=== PATIENT | female | born 1995 | race Caucasian/White ===

== ENCOUNTER 2023-09-03 09:47 | Outpatient (AMB) | payer OTHER, SELFPAY ==
--- NOTE | 2023-09-03 09:50 | A.OFFPC_ITS ---
Vital Signs 09/03/23 09:57 Height 5 ft 4.5 in Weight 140 lb 6 oz BMI 23.7 BP 104/74 Blood Pressure Location Rt brachial Position Sitting Respiration 16 Pulse 87 Pulse Source Pulse Oximeter Temp 97.7 F Temp Source Temporal Artery Scan Pulse Oximetry (%) 96 Oxygen Delivery Method Room Air Intake Visit Reasons: Establish Care Intake Note: patient here for new patient visit. [place] Needle Loom Required: No Is last menstrual period known: Yes Last menstrual period: 08/13/23 Post menopausal: No Patient : No Allergies lexapro Allergy (Intermediate, Uncoded 09/03/23 10:08) Rash Medication List - Last Reconciled 09/03/23 by JANES Lynch No Known Home Meds Tobacco use date assessed: 09/03/23 Dental Screening Dental Screen Date: 09/03/23 Did you have a dental visit in the last 12 months?: No Did you have a dental problem in the last 6 months where you did not have access to dental care?: No Was dental information given to patient?: Patient has dentist HPI HPI Comments History of Present Illness Details 27-year-old female with ANJELICA, MDD 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 Would like to discuss concerns about ADHD. Has never been formally diagnosed. Reports that she has a known history of generalized anxiety disorder as well as major depressive disorder. She is currently active with a counselor. She denies any mental health hospitalizations, SI or HI. Denies substance use or abuse. She reports that she has been on several medications over the years and stopped them all as they have not worked. Some these medications include Strattera and Wellbutrin. Reports has not been on medication since 2019. In regards to labs screening she reports that she is undergoing fertility treatment with her . She will be the egg donor. While her will carry the baby. She had a full set of labs done in July of 2023. She reports that her iron levels were low which is chronic for her. Normal TSH. She was started on iron supplement, multivitamin along with a vitamin-D. Subjective reports today of ADHD include: she has a list that she typed out that was reviewed today on her phone. When asked if these sx are present life long, tells me her parents were not believers in mental health disorders. Adult ADHD Self Report scale completed today Grossly +, all Very often with exception # 6 and #17 which scored sometimes (See scanned document) Has tried Strattera, took one time and states she felt like she was having a heart attack Tried wellbutrin for 4 months and reports no effect like a placebo Exam: Awake alert, pleasant and cooperative MMM RRR LS CTAB Mood and affect appropriate, tearful when talking about ADHD sx Plan: UTox today, negative (except marijuana) start ?dextroamphetamine-amphetamine 5 mg tablet (Adderall) QAM and titrate to effect. 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 1. Little interest or pleasure in doing things: nearly every day 2. Feeling down, depressed, or hopeless: nearly every day 3. Trouble falling or staying asleep, or sleeping too much: nearly every day 4. Feeling tired or having little energy: nearly every day 5. Poor appetite or overeating: nearly every day 6. Feeling bad about yourself - or that you are a failure or have let yourself or your family down: nearly every day 7. Trouble concentrating on things, such as reading the newspaper or watching television: nearly every day 8. Moving or speaking so slowly that other people could have noticed. Or the opposite - being so fidgety or restless that you have been moving around a lot more than usual: nearly every day 9. Thoughts that you would be better off or of hurting yourself in some way: not at all Total score: 24 Depression Screening Interpretation: Positive Depression Screening Follow-up: Existing condition and In treatment Depression Screening Done: Yes 19077 - PHQ-9 Billing: Yes Source: Developed by Drs. Toby Winters, Vicky Fuller, Tristian Bernal and colleagues, with an educational luba from [employer]. Thrive Questionnaire Date Thrive assessed: 09/03/23 I am a: Patient What is your living situation today?: I have a steady place to live Within the past 12 months, did the food you bought not last and you didn't have the money to get more?: Never true Within the past 12 months, did you worry whether your food would run out before you got money to buy more?: Never true Do you have trouble paying for medicines?: No Do you have trouble getting transportation to medical appointments?: No Do you have trouble paying your heating and electricity bill?: No Do you have trouble taking care of your child, family member or friend?: No Do you have trouble with day-to-day activities such as bathing, preparing meals, shopping, managing finances, etc.?: No Are you currently unemployed and looking for a job?: No Are you interested in more education?: Yes Please select the resources that you would like help with: Education Currently or been in a relationship where the following occur: No concerns reported THRIVE Score: 0 AUDIT C Alcohol Use Questionnaire (AUDIT-C) 1. How often do you have a drink containing alcohol?: Monthly or less 2. How many drinks containing alcohol do you have on a typical day when you are drinking?: 1 or 2 3. How often do you have six or more drinks on one occasion?: Never Total Score: 1 Score Reviewed/Action Taken: Yes ANJELICA-7 AMB Questionnaire ANJELICA-7 Date ANJELICA - 7 assessed: 09/03/23 Feeling nervous, anxious, or on edge: 3 = Nearly every day Not being able to stop or control worryin = Nearly every day Worrying too much about different things: 3 = Nearly every day Trouble relaxin = Nearly every day Being so restless that it is hard to sit still: 3 = Nearly every day Becoming easily annoyed or irritable: 3 = Nearly every day Feeling afraid as if something awful might happen: 3 = Nearly every day Total ANJELICA-7 score (0-4 normal; 5-9 mild; 10-14 moderate; 15-21 severe): 21 Source: Developed by Drs. Toby Winters, Vicky Fuller, Tristian Bernal and colleagues, with an educational luba from [employer]. ANJELICA-7 Assessment Billing ANJELICA-7 Assessment Tool: ANJELICA-7 Assessment 99433 Physical exam (Primary Care) Vital Signs: Last Vital Signs Temp 97.7 F 09/03/23 09:57 Pulse 87 09/03/23 09:57 Resp 16 09/03/23 09:57 BP 104/74 09/03/23 09:57 Pulse Ox 96 09/03/23 09:57 Oxygen Delivery Method Room Air 09/03/23 09:57 BMI result Body Mass Index 23.7 Tobacco/Smoking Status: Tobacco use Status Tobacco use date assessed 09/03/23 09/03/23 09:57 Patient Tobacco Use Status Never used Tobacco 09/03/23 09:57 e-Cigarette/Vaping Use Never Used 09/03/23 09:57 PHQ-9: PHQ-9 Score PHQ-9: Total score 09/03/23 10:46 Depression Screening Interpretation: Positive Depression Screening Follow-up: Existing condition and In treatment Thrive Assessment: Date of Thrive Assessment Date Thrive assessed 09/03/23 09/03/23 10:06 Currently or been in a relationship where the following occur: No concerns reported Results Reviewed Results Reviewed: RUN: 09/03/23 1436 PAGE 1 [facility] [address] [place] [id number] Valve Steamer: Dell Maxwell M.D. Specimen Inquiry Name: Falguni Brooks Age/Sex: 27/F : 1995 Unit#: [id number] Attend Dr: Lela Mayer VERIFICATION ENGINEER-BC Re09/03/23 Status: REG REF [facility] Disch: SPEC : [id number] ODILIA: 09/03/23 STATUS: COMP REQ : [id number] RECD: 09/03/[address] [facility] [address]: Lela Mayer VERIFICATION ENGINEER-BC COMP: 09/03/23 ENTERED: 09/03/[address]: ORDERED: Ur Drug Scrn Test Result Flag Reference Opiates, Ur Not Detected Not Detect Opiate cut-off is 300 ng/mL. Positive results are unconfirmed and should not be used for non-medical purposes. Barbiturate, Ur Not Detected Not Detect Barbiturate cut-off is 200 ng/mL. Positive results are unconfirmed and should not be used for non-medical purposes. PCP, Ur Not Detected Not Detect Phencyclidine cut-off is 25 ng/mL. Positive results are unconfirmed and should not be used for non-medical purposes. Amphetamine,Ur Not Detected Not Detect Amphetamine cut-off is 1000 ng/mL. Positive results are unconfirmed and should not be used for non-medical purposes. Benzodiazep,Ur Not Detected Not Detect Benzodiazepine cut-off is 200 ng/mL. Positive results are unconfirmed and should not be used for non-medical purposes. Cocaine, Ur Not Detected Not Detect Cocaine cut-off is 300 ng/mL. Positive results are unconfirmed and should not be used for non-medical purposes. Cannabinoid, Ur POSITIVE H Not Detect Cannabinoid cut-off is 50 ng/mL. Positive results are unconfirmed and should not be used for non-medical purposes. Ur Meth Scrn Not Detected Not Detect ng/mL Methadone cut-off is 300 ng/mL. Positive results are unconfirmed and should not be used for non-medical purposes. Fentanyl, ur Not Detected Not Detect Fentanyl cut-off is 1 ng/mL. Positive results are unconfirmed and should not be used for non-medical purposes. Oxycodone Urine Not Detected Not Detect ng/mL Oxycodone cut-off is 100 ng/mL. Positive results are unconfirmed and should not be used for non-medical purposes. Buprenorph Scr Not Detected Not Detect ng/mL Buprenorphine cut-off is 5 ng/mL. Positive results are unconfirmed and should not be used for non-medical purposes. Assessment and Plan Assessment & Plan (1) Encounter for drug screening: Code(s): Z02.83 - Encounter for blood-alcohol and blood-drug test (2) ADHD: Code(s): F90.9 - Attention-deficit hyperactivity disorder, unspecified type Qualifiers: Attention deficit-hyperactivity disorder type: combined inattentive- hyperactive Qualified Code(s): F90.2 - Attention-deficit hyperactivity disorder, combined type (3) MDD (major depressive disorder), recurrent episode: Comment: in counseling Code(s): F33.9 - Major depressive disorder, recurrent, unspecified Qualifiers: Major depression episode severity: mild Qualified Code(s): F33.0 - Major depressive disorder, recurrent, mild (4) ANJELICA (generalized anxiety disorder): Comment: in counseling Code(s): F41.1 - Generalized anxiety disorder (5) Iron deficiency anemia: Comment: cont Iron supplement Code(s): D50.9 - Iron deficiency anemia, unspecified Qualifiers: Iron deficiency anemia type: chronic blood loss Qualified Code(s): D50.0 - Iron deficiency anemia secondary to blood loss (chronic) Plan This note is constructed using voice recognition software. While every effort has been made to ensure accuracy in partnership development manager, still errors may have been included Sometimes, these errors may affect the content or meaning of the given sentence . Total time spent caring for the patient today was 45 minutes. This includes time spent before the visit reviewing the chart, time spent during the visit, and time spent after the visit on documentation Orders: Orders Drug Screen Urine Today Z02.83 - Encounter for blood-alcohol and blood-drug test Medications: New cholecalciferol (vitamin D3) 50 mcg PO DAILY 90 caps 0RF multivitamin 1 tab PO DAILY 90 tabs 0RF ferrous sulfate 325 mg PO DAILY 90 tabs 0RF bupropion HCl XL (Wellbutrin XL) 150 mg PO QAM 90 tabs 0RF dextroamphetamine-amphetamine 5 mg (Adderall) Partial Fill upon patient request. 5 mg PO DAILY 30 tabs 0RF Patient Instructions: Start wellbutrin 1 tab once per day IN THE AM. Take for 2 weeks then increase to 2 tabs daily until our next followup. UTOX screen complete, will send in RX for Adderal with a goal of controlling ADHD sx, we will titrate to effect Patient is aware they are being prescribed a controlled substance. They were educated that this medication does require routine monthly office visits to monitor weight, blood pressure, heart rate and to screen for any signs of abuse or misuse. They were educated that they may be subject to random pill counts and/or U tox screenings. The prescription drug monitoring program we will be monitored at each visit to further screen for signs of abuse or misuse to include filling prescriptions at other physician's offices. The patient should maintain prescription refills of the same local pharmacy and advised the prov ider of any changes immediately. If at any time there is a concern for abuse or misuse or if there are any signs of side effects such as elevated blood pressure, elevated heart rate or weight loss patient is made aware that this medication will be discontinued. The patient is aware of the above and is willing to proceed. Walk-In Care (Urgent Care): We Make it Easy Walk-in for urgent medical issues such as: ? Seasonal Allergies ? Insect Bites ? Cough ? Diarrhea ? Acute Asthma Attacks ? Back, Knee or Joint Pain ? Ear Infection ? Fever without a Rash ? Headaches ? Nausea ? [place], Rash or Skin Irritation ? Sore Throat ? Sports Physicals ? Vomiting Most insurances are accepted. Patients do not need to be part of the [facility] to seek care at the walk-in clinic. Locations [facility] , [place] [address] ? [phone] [facility] in [place] provides services to ages 18 and over. Open Friday-Friday: 8 a.m. to 5 p.m. and Friday: 9 a.m. to 3 p.m.* *Hours may vary due to staffing availability. To confirm Walk-In Care hours in [place], please call [phone]. [address] [place] [id number] ? [phone] [facility] in [place] provides services to ages 12 and over. Open Friday-Friday: 8 a.m. to 5 p.m. Hours may vary due to staffing availability. To confirm Walk-In Care hours in [place], please call [phone]. LABORATORY SERVICES: [facility] ? Primary Location [address] [place] [address] Friday through Friday 6:00 AM ? 5:00 PM Friday 7:00 AM ? 11:00 AM* [phone] The [facility] is centrally located near the front entrance of the [facility] for easy outpatient access. Convenient parking is provided for outpatients. *Hours may vary due to staffing availability. To confirm Laboratory hours for any location, please call [phone]. Offsite Location For your convenience, we offer offsite laboratory draw stations at the following locations: [address] [place] [address] ? [facility] [address] [facility], [address], [place] Friday through Friday 7:30 AM ? 1:00 PM* [phone] *Hours may vary due to staffing availability. To confirm Laboratory hours for any location, please call [phone]. [place] ? [address] Friday through Friday 6:00 AM ? 3:30 PM* Friday 6:30 AM ? 3 PM* [phone] *Hours may vary due to staffing availability. To confirm Laboratory hours for any location, please call [phone] [place] [address] Friday through Friday 7:30 AM ? 4:00 PM* [phone] *Hours may vary due to staffing availability. To confirm Laboratory hours for any location, please call [phone] [place] [address] Friday through 9:00 AM ? 4:00 PM* *Hours may vary due to staffing availability. To confirm Laboratory hours for any location, please call [phone]. Appointments are not necessary. Walk-ins are welcome. Like all the departments throughout the [facility], our Lab undergoes frequent reviews to ensure the quality and accuracy of test results, and our staff takes special pride in its status as a nationally accredited facility. Patient Portal: ONE PATIENT. ONE RECORD. BETTER CARE. [facility] has a fully integrated, cutting- edge mobile electronic health information system that has revolutionized the way we care for our patients and manage our organization. This system improves communication and coordination enabling us to provide safe, higher-quality care, and an overall positive experience for staff and patients. Our first priority, as always, is to deliver the highest quality care possible. The system is running in the background supporting that priority. This portal is for all [facility] services and practices. If you are experiencing any technical difficulties with enrolling or logging into the Patient Portal please complete the [facility] Patient Portal Technical Support Form. [facility] now offers a new secure on-line interactive tool for patients to review their health information ? Patient Portal. This interactive web portal will enable patients and their families to take an active role in their care by providing easy, secure access to their health information via the internet. The Patient Portal provides patients with instant access to their health information, including laboratory results, medications, allergies, demographic information, visit history, and more. In addition to managing their own care, parents and health care proxies with authorized consent will appreciate the ability to access the records of those individuals for whom they provide care. Please note: if you wish to gain access (Proxy) to another patient?s portal, you will be required to come to the Medical Records Department in person at [facility]. Both the patient giving proxy access and the proxy will need to provide photo identification and complete the appropriate authorization. The Patient Portal also allows track their appointments online. The [facility] Patient Portal also saves patients time by allowing them to submit updates to their demographic and contact information prior to their visits. Portal email notifications will also alert patients to any new activity on their portal, such as test results and new appointments. In order to initially enroll in the [facility] Patient Portal, you will need to enter some required information including the following: ? your [facility] Medical Record number ? your personal home email address ? name ? date of Please note: In order to enroll in the [facility] Patient Portal, we need to have your email address on file in your electronic medical record. The email address needs to be specific for one person (yourself) in order for your Portal enrollment to be successful. You can update your email address in person with our Registration staff when you are registering for a hospital visit. Otherwise, you will need to come to the Health Information Management (Medical Records) Department at [facility]. We are open from Friday ? Friday from 7:30 a.m. ? 4:30 p.m. You will be required to present a photo id. Once you have successfully enrolled in the Patient Portal, you will receive a one-time user id and password for the Portal, sent to your email address. This will allow you to log into the Patient Portal within 99 hrs and reset your own logon id and password, and define personal security questions. Once your permanent login and password have been set, you can log into the [facility] Patient Portal at any time via the blue button above or from the Portal Logon button on any page of the [facility] website. [facility] encourage all of our patients to enroll in Patient Portal as it presents a valuable opportunity for patients and their families to actively participate in their care and stay healthy Welcome to [facility]. We look forward to working with you. Coding Level of Care Code New Pt Level 4 (37053) Complex EM visit Add On G2211 Diagnoses Encounter for drug screening Z02.83 Attention deficit hyperactivity disorder (ADHD), combined type F90.2 Attention deficit-hyperactivity disorder type: combined inattentive- hyperactive Mild episode of recurrent major depressive disorder F33.0 Major depression episode severity: mild ANJELICA (generalized anxiety disorder) F41.1 Iron deficiency anemia due to chronic blood loss D50.0 Iron deficiency anemia type: chronic blood loss Additional Codes ANJELICA-7 Assessment Billing - ANJELICA-7 Assessment Tool: ANJELICA-7 Assessment 94618 ([id number])
[2023-09-03 09:57] VITALS: BP 104/74; PULSE 87; RESP 16; TEMP 36.5; O2SAT 96; BMI 23.7
== END 2023-09-03 10:53 | disposition home or self-care (01) ==
PROVIDERS: PCP Nurse Practitioner Family; Visit Provider Nurse Practitioner Family
DX: D50.0 Iron deficiency anemia secondary to blood loss (chronic) (principal); F90.2 Attention-deficit hyperactivity disorder, combined type; F33.0 Major depressive disorder, recurrent, mild; F41.1 Generalized anxiety disorder
CPT/HCPCS: 99204

== ENCOUNTER 2023-09-03 10:45 | Outpatient (REF) | payer OTHER, SELFPAY ==
[2023-09-03 14:13] LABS: Amphetamine Screen Urine Not Detected (Not Detect); Barbiturates, Urine Not Detected (Not Detect); Benzodiazepines Screen Urine Not Detected (Not Detect); Buprenorphine Scr Not Detected (Not Detect); Cannabinoid Screen Urine POSITIVE (Not Detect); Cocaine Screen Urine Not Detected (Not Detect); Fentanyl, urine Not Detected (Not Detect); Methadone Screen, Urine Not Detected (Not Detect); Opiate Screen Urine Not Detected (Not Detect); Oxycodone Screen Urine Not Detected (Not Detect); Phencyclidine Screen Urine Not Detected (Not Detect)
== END 2023-09-03 10:46 | disposition home or self-care (01) ==
LOC: HO.WFDLDS 10:45
PROVIDERS: Visit Provider Nurse Practitioner Family
DX: Z02.83 Encounter for blood-alcohol and blood-drug test (principal); Z13.9 Encounter for screening, unspecified
CPT/HCPCS: 80307

== ENCOUNTER 2023-09-26 08:26 | Outpatient (AMB) | payer OTHER, SELFPAY ==
--- NOTE | 2023-09-26 08:39 | MHC.PC.OV ---
Vital Signs 09/26/23 08:50 Height 5 ft 4 in Weight 141 lb 2 oz BMI 24.2 BP 114/62 Blood Pressure Location Lt brachial Position Sitting Pulse 88 Pulse Source Auscultation Intake Visit Reasons: 30 min FU ADHD med start Allergies lexapro Allergy (Intermediate, Uncoded 09/26/23 08:51) Rash Medication List - Last Reconciled 09/26/23 by DELANEY Lynch-JEN bupropion HCl XL (Wellbutrin XL) 150 mg PO QAM cholecalciferol (vitamin D3) 50 mcg PO DAILY dextroamphetamine-amphetamine 5 mg (Adderall) 5 mg PO DAILY ferrous sulfate 325 mg PO DAILY multivitamin 1 tab PO DAILY Tobacco use date assessed: 09/03/23 Dental Screening Dental Screen Date: 09/03/23 HPI HPI Comments History of Present Illness Details 27-year-old female with ANJELICA, MDD 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 Was nervous to start Adderral but did start taking it since this time. Does feel lightheaded at times. This only occurs in the evening around 5 or 6 pm. Taking Wellbutrin at 0830 and the Adderral 0930. cont to feel MDD/ANJELICA. No worse. Low energy. 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 Toby Winters, Vicky Fuller, Tristian Bernal and colleagues, with an educational luba from [employer]. Physical exam (Primary Care) Tobacco/Smoking Status: Tobacco use Status Tobacco use date assessed 09/03/23 09/26/23 08:40 Patient Tobacco Use Status Never used Tobacco 09/26/23 08:40 e-Cigarette/Vaping Use Never Used 09/26/23 08:40 Thrive Assessment: Date of Thrive Assessment Date Thrive assessed 09/03/23 09/26/23 08:40 Assessment and Plan Assessment & Plan (1) ADHD: Code(s): F90.9 - Attention-deficit hyperactivity disorder, unspecified type Qualifiers: Attention deficit-hyperactivity disorder type: combined inattentive-hyperactive Qualified Code(s): F90.2 - Attention-deficit hyperactivity disorder, combined type (2) MDD (major depressive disorder), recurrent episode: Comment: in counseling Code(s): F33.9 - Major depressive disorder, recurrent, unspecified Qualifiers: Major depression episode severity: mild Qualified Code(s): F33.0 - Major depressive disorder, recurrent, mild (3) ANJELICA (generalized anxiety disorder): Comment: in counseling Code(s): F41.1 - Generalized anxiety disorder Medications: New desvenlafaxine succinate ER (Pristiq) 25 mg PO DAILY 30 tabs 1RF dextroamphetamine-amphetamine 10 mg (Adderall) Partial Fill upon patient request. 10 mg PO DAILY 30 tabs 0RF Discontinued bupropion HCl XL (Wellbutrin XL) Discontinued Reason: Doctor's Order 150 mg PO QAM 90 tabs 0RF dextroamphetamine-amphetamine 5 mg (Adderall) Partial Fill upon patient request. Discontinued Reason: Doctor's Order 5 mg PO DAILY 30 tabs 0RF Coding Level of Care Code Est Pt Level 4 (27262) Diagnoses Attention deficit hyperactivity disorder (ADHD), combined type F90.2 Attention deficit-hyperactivity disorder type: combined inattentive-hyperactive Mild episode of recurrent major depressive disorder F33.0 Major depression episode severity: mild ANJELICA (generalized anxiety disorder) F41.1
[2023-09-26 08:50] VITALS: BP 114/62; PULSE 88; BMI 24.2
== END 2023-09-26 09:12 | disposition home or self-care (01) ==
PROVIDERS: PCP Nurse Practitioner Family; Visit Provider Nurse Practitioner Family
DX: F90.2 Attention-deficit hyperactivity disorder, combined type (principal); F33.0 Major depressive disorder, recurrent, mild; F41.1 Generalized anxiety disorder
CPT/HCPCS: 99214

== ENCOUNTER 2023-11-14 11:31 | Outpatient (AMB) | payer OTHER, SELFPAY ==
--- NOTE | 2023-11-14 11:38 | A.OFFPC_ITS ---
Vital Signs 11/14/23 11:39 11/14/23 12:04 Height 5 ft 4 in Weight 135 lb BMI 23.2 BP 108/66 Blood Pressure Location Rt brachial Position Sitting Respiration 14 Pulse 111 H 90 Pulse Source Pulse Oximeter Auscultation Pulse Oximetry (%) 99 Oxygen Delivery Method Room Air Intake Visit Reasons: MEDICATION REVIEW Intake Note: follow up on meds Allergies lexapro Allergy (Intermediate, Uncoded 11/14/23 11:47) Rash Medication List - Last Reconciled 11/14/23 by Lela Mayer, [facility] cholecalciferol (vitamin D3) 50 mcg PO DAILY desogestrel-ethinyl estradiol 0.15-0.03 mg (Isibloom) 1 tab PO DAILY desvenlafaxine succinate ER (Pristiq) 25 mg PO DAILY dextroamphetamine-amphetamine 10 mg (Adderall) 10 mg PO DAILY ferrous sulfate 325 mg PO DAILY multivitamin 1 tab PO DAILY Tobacco use date assessed: 09/03/23 Dental Screening Dental Screen Date: 09/03/23 HPI HPI Comments History of Present Illness Details 28-year-old female with ANJELICA, MDD, ADHD 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 ADHD sx are a little bit controlled now on the 10mg Adderall. The improvement was short lived. Food noise has decreased. She admits to being a chronic snacker before. Otherwise does not really help her day to day. ANJELICA/MDD: Has been taking the Pristiq for about 3 weeks now. No side effects other than having 2 days of feeling crappy but really unsure if it was from this or not. NOw taking w/ food as she was not prior. Takes a little later in the morning. Started OCP for fertility reasons for retrieval in the next 3 weeks or so. Will be on injectable medications for about 2 weeks during this time. Then will be off of these. Anxiety is not worse. Very slight improvement. Cont in therapy. Has been doing life style mods with exercise and better diet. Checks wt at home, reports [id number] Exam: Awake alert, pleasant and cooperative MMM RRR LS CTAB Mood and affect appropriate Plan: Cont pristiq same dose Increase Adderall to 20 in the AM. New RX sent today. Use 10mg PRN in the afternoon, before 6pm. You have #23 . Use these to supplement in the afternoon... a new RX was not sent. Make sure you have 4 hours in between AM and PM dose. And it is ok to use 5mg if the 10mg is too much. Continue to practice healthy lifestyle choices. Continue care with counselor. Return to office in 3-4 weeks for routine follow up, sooner as needed This note is constructed using voice recognition software. While every effort has been made to ensure accuracy in workcell operator, still errors may have been included Sometimes, these errors may affect the content or meaning of the given sentence . Total time spent caring for the patient today was 30 minutes. 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 How many drinks containing alcohol do you have on a typical day when you are drinking?: 1 or 2 3. How often do you have six or more drinks on one occasion?: Never Total Score: 0 ANJELICA-7 AMB Questionnaire ANJELICA-7 Date ANJELICA - 7 assessed: 09/03/23 Source: Developed by Drs. Toby Winters, Vicky Fuller, Tristian Bernal and colleagues, with an educational luba from [employer]. Physical exam (Primary Care) Vital Signs: Last Vital Signs Pulse 90 11/14/23 12:04 Resp 14 11/14/23 11:39 BP 108/66 11/14/23 11:39 Pulse Ox 99 11/14/23 11:39 Oxygen Delivery Method Room Air 11/14/23 11:39 BMI result Body Mass Index 23.2 Tobacco/Smoking Status: Tobacco use Status Tobacco use date assessed 09/03/23 11/14/23 11:41 Patient Tobacco Use Status Never used Tobacco 11/14/23 11:41 e-Cigarette/Vaping Use Never Used 11/14/23 11:41 Thrive Assessment: Date of Thrive Assessment Date Thrive assessed 09/03/23 11/14/23 11:41 Assessment and Plan Assessment & Plan (1) ANJELICA (generalized anxiety disorder): Comment: in counseling Code(s): F41.1 - Generalized anxiety disorder (2) MDD (major depressive disorder), recurrent episode: Comment: in counseling Code(s): F33.9 - Major depressive disorder, recurrent, unspecified Qualifiers: Major depression episode severity: mild Qualified Code(s): F33.0 - Major depressive disorder, recurrent, mild (3) ADHD: Code(s): F90.9 - Attention-deficit hyperactivity disorder, unspecified type Qualifiers: Attention deficit-hyperactivity disorder type: combined inattentive- hyperactive Qualified Code(s): F90.2 - Attention-deficit hyperactivity disorder, combined type Medications: New dextroamphetamine-amphetamine 20 mg (Adderall) Partial Fill upon patient request. 20 mg PO DAILY 30 tabs 0RF Patient Instructions: Plan: Cont pristiq same dose Increase Adderall to 20 in the AM. New RX sent today. Use 10mg PRN in the afternoon, before 6pm. You have #23 [pill count done today]. Use these to supplement in the afternoon... a new RX was not sent. Make sure you have 4 hours in between AM and PM dose. And it is ok to use 5mg if the 10mg is too much. Coding Level of Care Code Est Pt Level 4 (56180) Complex EM visit Add On G2211 Diagnoses ANJELICA (generalized anxiety disorder) F41.1 Mild episode of recurrent major depressive disorder F33.0 Major depression episode severity: mild Attention deficit hyperactivity disorder (ADHD), combined type F90.2 Attention deficit-hyperactivity disorder type: combined inattentive- hyperactive
[2023-11-14 11:39] VITALS: BP 108/66; PULSE 111; RESP 14; O2SAT 99; BMI 23.2
[2023-11-14 12:04] VITALS: PULSE 90
== END 2023-11-14 12:07 | disposition home or self-care (01) ==
PROVIDERS: PCP Nurse Practitioner Family; Visit Provider Nurse Practitioner Family
DX: F41.1 Generalized anxiety disorder (principal); F33.0 Major depressive disorder, recurrent, mild; F90.2 Attention-deficit hyperactivity disorder, combined type

== ENCOUNTER → 2023-11-14 11:31 | Outpatient (BNVA) | payer OTHER, SELFPAY | PROVIDERS: PCP Nurse Practitioner Family; Visit Provider Nurse Practitioner Family | DX: F41.1 Generalized anxiety disorder (principal); F33.0 Major depressive disorder, recurrent, mild; F90.2 Attention-deficit hyperactivity disorder, combined type; Z79.899 Other long term (current) drug therapy ==

== ENCOUNTER 2023-12-11 09:01 | Outpatient (AMB) | payer OTHER, SELFPAY ==
--- NOTE | 2023-12-11 09:03 | MHC.PC.OV ---
Vital Signs 12/11/23 09:06 Height 5 ft 4 in Weight 137 lb 2 oz BMI 23.5 BP 118/70 Blood Pressure Location Lt brachial Position Sitting Respiration 13 Pulse 88 Pulse Source Pulse Oximeter Temp 97.9 F Temp Source Oral Pulse Oximetry (%) 98 Intake Visit Reasons: F/U Intake Note: follow up and last pap was done last year at [facility]. 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 New RX sent today. Use 10mg PRN in the afternoon, before 6pm. You have #23 . Use these to supplement in the afternoon... a new RX was not sent. Make sure you have 4 hours in between AM and PM dose. And it is ok to use 5mg if the 10mg is too much. Continue to practice healthy lifestyle choices. Continue care with counselor. Today: Had egg retrieval on Friday. Number of follicles low given OCP use. Waiting to hear if they survived the 5 days for the next steps. Feeling overwhelmed w/ all of the injections, labs and US. This was first surgery,first anesthesia. Has to drive to [place] [employer] [place], working lots. Told ok to cont meds w/o stopping. Encouraged to use ^ folic acid. however, she stopped taking the Adderall 1 week after starting injection 11/26/23. Did take a very few times to help w/ work. Stopped taking pristiq around the same time. She self tapered. States she stopped feeling like she caused the lower follicle count. Her anxiety is now worse. When she did take the 20mg Adderall (2 x10mg) versus take the 20 mg tab didn't feel the same as taking the 2 10's When asked how it felt different felt it more increased focus, productivity. Did try additional PM dose of 5mg one time around 3pm. Did not feel much. Cont in counselor and now working w/ life [employer]. Wt is stable. On top of this, selling house and moving to [place]. New house will need construction. Feels sore s/p surgery Taking APAP w little relief. Also came down w/ a URI last week. Finally feeling better from that. Exam: Awake alert, pleasant and cooperative MMM RRR LS CTAB anxious, appropriate Pill count today #20 20mg, #10 10mg Plan: URI supportive care. Lots of time was spent today talking about self-care and need to control her anxiety. Strongly regards to stay on her medication as prescribed. Restart pristiq same dose, take every day. Restart taking Adderall to 20 in the AM. Use 10mg PRN in the afternoon, before 6pm. No new RX sent. Can consider 2x10mg in the AM if this is better than the 20mg tab just let me know. Make sure you have 4 hours in between AM and PM dose. And it is ok to use 5mg if the 10mg is too much. Continue to practice healthy lifestyle choices. Continue care with counselor. Return to office in 3-4 weeks for routine follow up, sooner as needed Patient is aware they are being prescribed a controlled substance. They were educated that this medication does require routine monthly office visits to monitor weight, blood pressure, heart rate and to screen for any signs of abuse or misuse. They were educated that they may be subject to random pill counts and/or U tox screenings. The prescription drug monitoring program we will be monitored at each visit to further screen for signs of abuse or misuse to include filling prescriptions at other physician's offices. The patient should maintain prescription refills of the same local pharmacy and advised the provider of any changes immediately. If at any time there is a concern for abuse or misuse or if there are any signs of side effects such as elevated blood pressure, elevated heart rate or weight loss patient is made aware that this medication will be discontinued. The patient is aware of the above and is willing to proceed. This note is constructed using voice recognition software. While every effort has been made to ensure accuracy in hand knitter, still errors may have been included Sometimes, these errors may affect the content or meaning of the given sentence . Total time spent caring for the patient today was 45 minutes. 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 1. Little interest or pleasure in doing things: more than half the days 2. Feeling down, depressed, or hopeless: several days 3. Trouble falling or staying asleep, or sleeping too much: several days 4. Feeling tired or having little energy: more than half the days 5. Poor appetite or overeating: more than half the days 6. Feeling bad about yourself - or that you are a failure or have let yourself or your family down: more than half the days 7. Trouble concentrating on things, such as reading the newspaper or watching television: nearly every day 8. Moving or speaking so slowly that other people could have noticed. Or the opposite - being so fidgety or restless that you have been moving around a lot more than usual: more than half the days 9. Thoughts that you would be better off or of hurting yourself in some way: not at all Total score: 15 [id number] - PHQ-9 Billing: Yes Source: Developed by Drs. Toby Winters, Vicky Fuller, Tristian Bernal and colleagues, with an educational luba from [employer]. Thrive Questionnaire Date Thrive assessed: 12/11/23 I am a: Patient What is your living situation today?: I have a steady place to live Within the past 12 months, did the food you bought not last and you didn't have the money to get more?: Never true Within the past 12 months, did you worry whether your food would run out before you got money to buy more?: Never true Do you have trouble paying for medicines?: No Do you have trouble getting transportation to medical appointments?: No Do you have trouble paying your heating and electricity bill?: No Do you have trouble taking care of your child, family member or friend?: No Do you have trouble with day-to-day activities such as bathing, preparing meals, shopping, managing finances, etc.?: No Are you currently unemployed and looking for a job?: No Are you interested in more education?: Yes Please select the resources that you would like help with: None Currently or been in a relationship where the following occur: No concerns reported THRIVE Score: 0 AUDIT C Alcohol Use Questionnaire (AUDIT-C) 1. How often do you have a drink containing alcohol?: 2-4 times a month Total Score: 2 ANJELICA-7 AMB Questionnaire ANJELICA-7 Date ANJELICA - 7 assessed: 12/11/23 Feeling nervous, anxious, or on edge: 3 = Nearly every day Not being able to stop or control worryin = Nearly every day Worrying too much about different things: 3 = Nearly every day Trouble relaxin = Nearly every day Being so restless that it is hard to sit still: 3 = Nearly every day Becoming easily annoyed or irritable: 3 = Nearly every day Feeling afraid as if something awful might happen: 3 = Nearly every day Total ANJELICA-7 score (0-4 normal; 5-9 mild; 10-14 moderate; 15-21 severe): 21 Source: Developed by Drs. Toby Winters, Vicky Fuller, Tristian Bernal and colleagues, with an educational luba from [employer]. ANJELICA-7 Assessment Billing ANJELICA-7 Assessment Tool: ANJELICA-7 Assessment [id number] Physical exam (Primary Care) Vital Signs: Last Vital Signs Temp 97.9 F 12/11/23 09:06 Pulse 88 12/11/23 09:06 Resp 13 12/11/23 09:06 BP 118/70 12/11/23 09:06 Pulse Ox 98 12/11/23 09:06 BMI result Body Mass Index 23.5 Tobacco/Smoking Status: Tobacco use Status Tobacco use date assessed 09/03/23 12/11/23 09:04 Patient Tobacco Use Status Never used Tobacco 12/11/23 09:04 e-Cigarette/Vaping Use Never Used 12/11/23 09:04 PHQ-9: PHQ-9 Score PHQ-9: Total score 15 12/11/23 09:18 Thrive Assessment: Date of Thrive Assessment Date Thrive assessed 12/11/23 12/11/23 09:09 Currently or been in a relationship where the following occur: No concerns reported Coding Level of Care Code Est Pt Level 5 (07919) Complex EM visit Add On G2211 Diagnoses ANJELICA (generalized anxiety disorder) F41.1 Mild episode of recurrent major depressive disorder F33.0 Major depression episode severity: mild Attention deficit hyperactivity disorder (ADHD), combined type F90.2 Attention deficit-hyperactivity disorder type: combined inattentive-hyperactive Viral URI J06.9 Additional Codes ANJELICA-7 Assessment Billing - ANJELICA-7 Assessment Tool: ANJELICA-7 Assessment [id number] ([id number]) Assessment & Plan Assessment & Plan (1) ANJELICA (generalized anxiety disorder): Comment: in counseling Code(s): F41.1 - Generalized anxiety disorder Category: Medical Plan: . (2) MDD (major depressive disorder), recurrent episode: Comment: in counseling Code(s): F33.9 - Major depressive disorder, recurrent, unspecified Category: Medical Qualifiers: Major depression episode severity: mild Qualified Code(s): F33.0 - Major depressive disorder, recurrent, mild Plan: . (3) ADHD: Code(s): F90.9 - Attention-deficit hyperactivity disorder, unspecified type Category: Medical Qualifiers: Attention deficit-hyperactivity disorder type: combined inattentive-hyperactive Qualified Code(s): F90.2 - Attention-deficit hyperactivity disorder, combined type (4) Viral URI: Code(s): J06.9 - Acute upper respiratory infection, unspecified Plan: supportive care only Plan .
[2023-12-11 09:06] VITALS: BP 118/70; PULSE 88; RESP 13; TEMP 36.6; O2SAT 98; BMI 23.5
== END 2023-12-11 09:46 | disposition home or self-care (01) ==
PROVIDERS: PCP Nurse Practitioner Family; Visit Provider Nurse Practitioner Family
DX: F41.1 Generalized anxiety disorder (principal); F33.0 Major depressive disorder, recurrent, mild; F90.2 Attention-deficit hyperactivity disorder, combined type; J06.9 Acute upper respiratory infection, unspecified

== ENCOUNTER → 2023-12-11 09:01 | Outpatient (BNVA) | payer OTHER, SELFPAY | PROVIDERS: PCP Nurse Practitioner Family; Visit Provider Nurse Practitioner Family | DX: F41.1 Generalized anxiety disorder (principal); F33.0 Major depressive disorder, recurrent, mild; F90.2 Attention-deficit hyperactivity disorder, combined type; J06.9 Acute upper respiratory infection, unspecified | CPT/HCPCS: 96127 ==

== ENCOUNTER 2024-01-09 10:55 | Outpatient (AMB) | payer OTHER, SELFPAY ==
--- NOTE | 2024-01-09 10:59 | A.OFFPC_ITS ---
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 Intake Note: patient here for new patient visit Product Ambassador Required: No Is last menstrual period known: Yes Last menstrual period: 12/13/23 Post menopausal: No Patient : No Allergies lexapro Allergy (Intermediate, Uncoded 01/09/24 11:26) Rash Medication List - Last Reconciled 01/09/24 by Lela Mayer, 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- desvenlafaxine succinate ER (Pristiq) 25 mg PO DAILY dextroamphetamine-amphetamine 20 mg (Adderall) 20 mg PO DAILY multivitamin 1 tab PO DAILY Tobacco use date assessed: 01/09/24 Dental Screening Dental Screen Date: 01/09/24 Did you have a dental visit in the last 12 months?: No Did you have a dental problem in the last 6 months where you did not have access to dental care?: No Was dental information given to patient?: Patient has dentist HPI HPI Comments History of Present Illness Details 28-year-old female with ANJELICA, MDD, ADHD, keratosis pilaris, facial acne Social: 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 Moving to [place]. Family hx: Maternal Grandmother substance abuse, ovarian ca, stomach ca - ; Dad coliits; Mom alive well. Full and half sisters, both alive and well 22 and 9 Health Maintenance: PAP 07/02/22 Normal Tdap 2006, would like to get this at a later date Flu declined Specialists: Counselor STAFF DEVELOPER Derm - [facility] Here today for CPE Overall well. Has 3 F and 2 M eggs, may do first transfer in Jan, unsure if this will happen on time. Optho wears glasses, last eye exam Summer 2023 Skin saw derm a few weeks ago, has f/u appts scheduled. Deferred screening labs as had lots of bloodwork done recently w/ the fertility treatments. Saw ENT in the past, since 2012 had globus sensation, it comes and goes, did have a nasolaryngoscopy x 2, last at [facility]. Told she had acid reflux. Went to ED x 1 for this. She has never tried guard treatment. Plan Start Omeprazole 40mg daily, for 6 week, journal daily 1-10 scale about globus sensation and we can f/u. Consider referrals if needed after PPI trial Continue all medications as directed. Continue care with her care team. She does need a refill on her Adderall. She was prescribed 20 mg in the morning and 5-10 mg as needed for breakthrough symptoms. She did not like the way the 20 mg tablet made her feel. Therefore she was taking 210 mg in the morning and then 5-10 mg as needed for breakthrough symptoms. She has been consistent in her follow-ups, pill counts, etc.. I have sent in a new prescription today for Adderall 10 mg take 2 tablets in the morning and 1 tablet as needed for breakthrough symptoms, not to exceed 30 mg a day. She has a routine follow up for her ADHD next week. An additional 20 minutes was spent addressing the problem(s) noted at todays visit. This includes time spent before the visit reviewing the chart, time spent during the visit, and time spent after the visit on documentation [facility] Medical History (Updated 01/09/24 @ 15:49 by Lela Mayer [facility]) Depression Anxiety Family History (Updated 01/09/24 @ 11:17 by Debo Herbert) Maternal Grandmother Substance abuse Paternal Grandfather High blood pressure Social History (Updated 01/09/24 @ 11:14 by Debo Herbert) Housing: House Patient Tobacco Use Status: Never used Tobacco e-Cigarette/Vaping Use: Never Used Second Hand Smoke Exposure: No Substance Use Type: Marijuana Patient : No service: No Current occupational status: employed 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 1. Little interest or pleasure in doing things: several days 2. Feeling down, depressed, or hopeless: several days 3. Trouble falling or staying asleep, or sleeping too much: more than half the days 4. Feeling tired or having little energy: more than half the days 5. Poor appetite or overeating: not at all 6. Feeling bad about yourself - or that you are a failure or have let yourself or your family down: several days 7. Trouble concentrating on things, such as reading the newspaper or watching television: several days 8. Moving or speaking so slowly that other people could have noticed. Or the opposite - being so fidgety or restless that you have been moving around a lot more than usual: not at all 9. Thoughts that you would be better off or of hurting yourself in some way: not at all Total score: 8 Depression Screening Interpretation: Positive Depression Screening Follow-up: Existing condition Depression Screening Done: Yes 87820 - PHQ-9 Billing: Yes Source: Developed by Drs. Toby Winters, Vicky Fuller, Tristian Bernal and colleagues, with an educational luba from [employer]. Thrive Questionnaire Date Thrive assessed: 01/09/24 I am a: Patient What is your living situation today?: I have a steady place to live Within the past 12 months, did the food you bought not last and you didn't have the money to get more?: Never true Within the past 12 months, did you worry whether your food would run out before you got money to buy more?: Never true Do you have trouble paying for medicines?: No Do you have trouble getting transportation to medical appointments?: No Do you have trouble paying your heating and electricity bill?: No Do you have trouble taking care of your child, family member or friend?: No Do you have trouble with day-to-day activities such as bathing, preparing meals, shopping, managing finances, etc.?: No Are you currently unemployed and looking for a job?: No Are you interested in more education?: Yes Please select the resources that you would like help with: None Currently or been in a relationship where the following occur: No concerns reported THRIVE Score: 0 AUDIT C Alcohol Use Questionnaire (AUDIT-C) 1. How often do you have a drink containing alcohol?: 2-4 times a month 2. How many drinks containing alcohol do you have on a typical day when you are drinking?: 1 or 2 3. How often do you have six or more drinks on one occasion?: Never Total Score: 2 Score Reviewed/Action Taken: Yes ANJELICA-7 AMB Questionnaire ANJELICA-7 Date ANJELICA - 7 assessed: 01/09/24 Feeling nervous, anxious, or on edge: 1 = Several days Not being able to stop or control worryin = More than half the days Worrying too much about different things: 2 = More than half the days Trouble relaxin = Several days Being so restless that it is hard to sit still: 1 = Several days Becoming easily annoyed or irritable: 2 = More than half the days Feeling afraid as if something awful might happen: 2 = More than half the days Total ANJELICA-7 score (0-4 normal; 5-9 mild; 10-14 moderate; 15-21 severe): 11 Source: Developed by Drs. Toby Winters, Vicky Fuller, Tristian Bernal and colleagues, with an educational luba from [employer]. ANJELICA-7 Assessment Billing ANJELICA-7 Assessment Tool: ANJELICA-7 Assessment 18954 Review of Systems Const Details: Constitutional: Denies fever. Skin: Denies rash. Eye: Denies eye pain. ENMT: Denies sore throat and nasal congestion. Respiratory: Denies shortness of breath and cough. Gastrointestinal: Denies nausea, vomiting or abdominal pain. Cardiovascular: Denies chest pain and syncope. Genitourinary: Denies dysuria. Musculoskeletal: Denies back pain and extremity pain. Neurologic: Denies headaches, confusion, and weakness. Psychiatric: Denies suicidal thoughts and substance abuse. Allergy/ Immunologic: Denies impaired immunity. Physical exam (Primary Care) Vital Signs: Last Vital Signs Temp 99.1 F 01/09/24 11:06 Pulse 124 H 01/09/24 11:06 Resp 16 01/09/24 11:06 BP 110/70 01/09/24 11:06 Pulse Ox 98 01/09/24 11:06 Oxygen Delivery Method Room Air 01/09/24 11:06 BMI result Body Mass Index 23.2 Tobacco/Smoking Status: Tobacco use Status Tobacco use date assessed 01/09/24 01/09/24 11:13 Patient Tobacco Use Status Never used Tobacco 01/09/24 11:14 e-Cigarette/Vaping Use Never Used 01/09/24 11:14 PHQ-9: PHQ-9 Score PHQ-9: Total score 8 01/09/24 11:36 Depression Screening Interpretation: Positive Depression Screening Follow-up: Existing condition Thrive Assessment: Date of Thrive Assessment Date Thrive assessed 01/09/24 01/09/24 11:13 Currently or been in a relationship where the following occur: No concerns reported Const Other: General: Well developed, well nourished, in no acute distress. Appears stated age. Head: Normocephalic, atraumatic. Eyes: Pupils are equal, round and reactive to light and accommodation. Conjunctivae are clear. Vision grossly normal. Ears: TMs clear AU, EACS WNL Nose: Patent, without discharge. Mouth: There are no ulcers or lesions noted. No inflammation, no post nasal drip, no plaques nor exudates. Neck: Supple, no adenopathy or thyromegaly. Lungs: Clear to auscultation bilaterally. No rales, rhonchi or wheeze noted. Good air flow in all seay. Heart: Regular rate and rhythm. No murmurs, click, rubs or gallops are noted. Abdomen: Bowel sounds present in all quadrants. The abdomen is soft, nontender, with no masses or organomegaly noted. No hernias are noted. Musculoskeletal: Joints are nontender, without swelling, redness, or effusions. Range of motion is observed to be normal. Pulses: Peripheral pulses are equal and palpable bilaterally. Extremities: No clubbing, cyanosis nor edema is noted. Neurologic: Gait and station normal. Cranial Nerves 2-12 intact. Motor strength grossly symmetrical and intact. No sensory loss. Balance normal. Skin: No rashes, ulcers, or lesions noted. Turgor is good. Skin color is good. Hair and nails are without abnormalities. Psych: Normal eye contact, affect and mood appropriate, and normal interactions. Patient is alert and appropriate to context. Coding Level of Care Code Est Pt Level 3 (18169) Est Pt Prev Care 18-39y(31064) Diagnoses Encounter for general adult medical examination with abnormal findings Z00.01 Attention deficit hyperactivity disorder (ADHD), combined type F90.2 Attention deficit-hyperactivity disorder type: combined inattentive- hyperactive Globus sensation R09.A2 Need for Tdap vaccination Z23 Additional Codes ANJELICA-7 Assessment Billing - ANJELICA-7 Assessment Tool: ANJELICA-7 Assessment 17479 ([id number]) PHQ-9 - 36503 - PHQ-9 Billing: Yes ([id number]) Assessment & Plan Assessment & Plan (1) Encounter for general adult medical examination with abnormal findings: Code(s): Z00.01 - Encounter for general adult medical examination with abnormal findings Plan: . (2) ADHD: Code(s): F90.9 - Attention-deficit hyperactivity disorder, unspecified type Category: Medical Qualifiers: Attention deficit-hyperactivity disorder type: combined inattentive- hyperactive Qualified Code(s): F90.2 - Attention-deficit hyperactivity disorder, combined type Plan: . (3) Globus sensation: Code(s): R09.A2 - Foreign body sensation, throat Category: Medical Plan: . (4) Need for Tdap vaccination: Code(s): Z23 - Encounter for immunization Category: Medical Plan: . Medications: New omeprazole 40 mg PO DAILY 30 caps 1RF dextroamphetamine-amphetamine 10 mg (Adderall) Take 2 tabs in the morning (20mg) take additional 10 mg in the afternoon as needed for breakthrough sx; Max 30mg/day. 10 mg PO DIRECTED 90 tabs 0RF Discontinued dextroamphetamine-amphetamine 20 mg (Adderall) Partial Fill upon patient request. Discontinued Reason: Doctor's Order 20 mg PO DAILY 30 tabs 0RF Patient Instructions: Health screenings for women You should visit your health care provider from time to time, even if you are healthy. The purpose of these visits is to: Screen for medical issues Assess your risk for future medical problems Encourage a healthy lifestyle Update vaccinations and other preventive care services Help you get to know your provider in case of an illness Information Even if you feel fine, you should still see your provider for regular checkups. These visits can help you avoid problems in the future. For example, the only way to find out if you have high blood pressure is to have it checked regularly. High blood sugar and high cholesterol levels also may not have any symptoms in the early stages. A simple blood test can check for these conditions. There are specific times when you should see your provider or receive specific health screenings. The [place] Preventive Services Task Force publishes a list of recommended screenings. Below are screening guidelines for women ages 18 to 39. BLOOD PRESSURE SCREENING Your blood pressure should be checked at least once every 3 to 5 years if: Your blood pressure is in the normal range (top number less than 120 mm Hg and bottom number less than 80 mm Hg) You don't have risk factors for high blood pressure Ask your provider if you need your blood pressure checked more often if: The top number is 120 to 129 mm Hg or the bottom number is 70 to 79 mm Hg You have diabetes, heart disease, kidney problems, are overweight, or have certain other health conditions You have a first-degree relative with high blood pressure You are Black You had high blood pressure during a If the top number is 130 mm Hg or greater or the bottom number is 80 mm Hg or greater, this is considered stage 1 hypertension. Schedule an appointment with your provider to learn how you can reduce your blood pressure. Watch for blood pressure screenings in your area. Ask your provider if you can stop in to have your blood pressure checked. BREAST CANCER SCREENING Experts do not agree about the benefits of breast self-exams in finding breast cancer or saving lives. Talk to your provider about what is best for you. A screening mammogram is not recommended for most women under age 40. Your provider may discuss and recommend mammograms, MRI scans, or ultrasounds if you have an increased risk for breast cancer, such as: A mother or sister who had breast cancer at a young age (most often starting screening earlier than the age the close relative was diagnosed) You carry a high-risk genetic marker CERVICAL CANCER SCREENING Cervical cancer screening should start at age 21 years unless your provider advises otherwise. After the first test: Women ages 21 through 29 should have a Pap test every 3 years. Exoprts do not agree on whether HPV testing is recommended for this age group. Women ages 30 through 65 should be screened with either a Pap test every 3 years or the HPV test every 5 years or both tests every 5 years (called cotesting ). Women who have been treated for precancer (cervical dysplasia) should continue to have Pap tests for 20 years after treatment or until age 65, whichever is longer. If you have had your uterus and cervix removed (total hysterectomy), and you have not been diagnosed with cervical cancer or precancer (high grade cervical neoplasia), you do not need cervical cancer screening. CHOLESTEROL SCREENING Cholesterol screening should begin at: Age 45 for women with no known risk factors for coronary heart disease Age 20 for women with known risk factors for coronary heart disease Repeat cholesterol screening should take place: Every 5 years for women with normal cholesterol levels More often if changes occur in lifestyle (including weight gain and diet) More often if you have diabetes, heart disease, kidney problems, or certain other conditions DIABETES SCREENING You should be screened for diabetes starting at age 35 and then repeated every 3 years if you have no risk factors for diabetes. Screening may need to start earlier and be repeated more often if you have other risk factors for diabetes, such as: You have a first degree relative with diabetes. You are overweight or have obesity. You have high blood pressure, prediabetes, or a history of heart disease. Screening for diabetes should be done if you are planning to become and you are overweight and have other risk factors such as high blood pressure. DENTAL EXAM Go to the dentist once or twice every year for an exam and cleaning. Your dentist will evaluate if you need more frequent visits. EYE EXAM Have an eye exam every 5 to 10 years before age 40. If you have vision problems, have an eye exam every 2 years or more often if recommended by your provider. You should have an eye exam that includes an examination of your retina (back of your eye) at least every year if you have diabetes. IMMUNIZATIONS Commonly needed vaccines include: Flu shot: get one every year. COVID-19 vaccine: ask your provider what is best for you. Tetanus-diphtheria and acellular pertussis (Tdap) vaccine: have one at or after age 19 as one of your tetanus-diphtheria vaccines if you did not receive it as an adolescent. Tetanus-diphtheria: have a booster (or Tdap) every 10 years. Varicella vaccine: receive 2 doses if you never had chickenpox or the varicella vaccine. Hepatitis B vaccine: receive 2, 3, or 4 doses, depending on your exact circumstances. Measles, mumps, and rubella (MMR) vaccine: receive 1 to 2 doses if you are not already immune to MMR. Your provider can tell you if you are immune. Ask your provider about the human papillomavirus (HPV) vaccine if: You have not received the HPV vaccine in the past You have not completed the full vaccine series (you should catch up on this shot) Ask your provider if you should receive other immunizations if you have certain health problems that increase your risk for some diseases such as pneumonia. INFECTIOUS DISEASE SCREENING Women who are sexually active should be screened for chlamydia and gonorrhea up until age 25. Women 25 years and older should be screened for chlamydia and gonorrhea if at high risk. Screening for hepatitis C: All adults ages 18 to 79 should get a one-time test for hepatitis C. people should be screened at every . Screening for human immunodeficiency virus (HIV): All people ages 15 to 65 should get a one-time test for HIV. Depending on your lifestyle and medical history, you may also need to be screened for infections such as syphilis and HIV, as well as other infections. PHYSICAL EXAM All adults should visit their provider from time to time, even if they are healthy. The purpose of these visits is to: Screen for disease Assess your risk of future medical problems Encourage a healthy lifestyle Update your vaccinations and other preventive care services Maintain a relationship with a provider in case of an illness Your height, weight, and BMI should be checked at every exam. During your exam, your provider may ask you about: Depression and anxiety Diet and exercise Alcohol and tobacco use Safety issues, such as using seat belts, smoke detectors, and intimate partner violence Your medicines and risk for interactions SKIN SELF-EXAM Your provider may check your skin for signs of skin cancer, especially if you're at high risk, such as if you: Have had skin cancer before Have close relatives with skin cancer Have a weakened immune system OTHER SCREENING Talk with your provider about colon cancer screening if you have a strong family history of colon cancer or polyps, or if you have had inflammatory bowel disease or polyps yourself. Routine bone density screening of women under 40 is not recommended.
[2024-01-09 11:06] VITALS: BP 110/70; PULSE 124; RESP 16; TEMP 37.3; O2SAT 98; BMI 23.2
[2024-01-09 15:46] VITALS: PULSE 90
== END 2024-01-09 11:49 | disposition home or self-care (01) ==
PROVIDERS: PCP Nurse Practitioner Family; Visit Provider Nurse Practitioner Family
DX: Z00.00 Encounter for general adult medical examination without abnormal findings (principal); F90.2 Attention-deficit hyperactivity disorder, combined type; R09.A2 Foreign body sensation, throat

== ENCOUNTER → 2024-01-09 10:55 | Outpatient (BNVA) | payer OTHER, SELFPAY | PROVIDERS: PCP Nurse Practitioner Family; Visit Provider Nurse Practitioner Family | DX: Z00.01 Encounter for general adult medical examination with abnormal findings (principal); F90.2 Attention-deficit hyperactivity disorder, combined type; R09.A2 Foreign body sensation, throat | CPT/HCPCS: 96127 ==

== ENCOUNTER 2024-01-14 08:26 | Outpatient (AMB) | payer OTHER, SELFPAY ==
--- NOTE | 2024-01-14 08:31 | MHC.PC.OV ---
Vital Signs 01/14/24 08:52 Height 5 ft 4 in Weight 134 lb 4 oz BMI 23.0 BP 90/55 L Blood Pressure Location Rt brachial Position Sitting Respiration 16 Pulse 84 Pulse Source Pulse Oximeter Temp 97.9 F Temp Source Temporal Artery Scan Pulse Oximetry (%) 99 Oxygen Delivery Method Room Air Intake Visit Reasons: 4 weeks 30 min routine ADHD ANJELICA fu Intake Note: patient here for follow up on ADHD and ANJELICA. 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 Is last menstrual period known: Yes Last menstrual period: 12/13/23 Post menopausal: No Patient : No Allergies lexapro Allergy (Intermediate, Uncoded 01/14/24 09:03) Rash Medication List - Last Reconciled 01/14/24 by Lela Mayer, [employer] desvenlafaxine succinate ER (Pristiq) 25 mg PO DAILY dextroamphetamine-amphetamine 10 mg (Adderall) 10 mg PO DIRECTED multivitamin 1 tab PO DAILY omeprazole 40 mg PO DAILY Tobacco use date assessed: 01/14/24 Dental Screening Dental Screen Date: 01/14/24 Did you have a dental visit in the last 12 months?: No Did you have a dental problem in the last 6 months where you did not have access to dental care?: No Was dental information given to patient?: Patient has dentist HPI HPI Comments History of Present Illness Details History of Present Illness The patient is a 28-year-old female presenting with a follow-up for ADHD and anxiety. The patient has been on Adderall treatment, originally prescribed 20 mg tablets, but expressed that this was less effective than taking two 10 mg tablets. The patient has experimented with a 10 mg dose for breakthrough symptoms in the afternoon and finds the experience similar to the 20 mg dose, acknowledging that initial differences noticed were likely psychological due to dose changes. Additionally, the patient has refrained from using a 10 mg midday dose because of fears regarding its impact on her sleep, as she generally experiences difficulty falling asleep. Currently, she is considering adjusting her schedule to take a dose earlier in the day to mitigate sleep issues. Regarding her anxiety, she has been taking Pristiq. She stopped and restarted Pristiq, recognizing that the medication provides some benefits, although she doubts its impact on her depression. The patient has expressed difficulty distinguishing the effects of Pristiq separately from those of Adderall. Despite some ongoing symptoms, she notes positive side effects and has been tolerating the medication well. No significant adverse effects have been observed since restarting Pristiq. Review of Systems - Psychiatric: Reports anxiety and residual depressive symptoms despite current medication. - Neurological: Reports increased talkativeness and mood elevation after taking medications. Physical Exam - Vital Signs- Weight is stable, blood pressure is normal, pulse is normal. - Respiratory- Lungs normal on auscultation. - Cardiovascular- Heart sounds normal on auscultation. Mildly anxious, appropriate and cooperative Plan - ADHD: Continue current Adderall prescription with a focus on dosing schedule adjustment, ensuring at least four hours between doses to avoid impacting sleep. Follow up in four weeks to assess the effectiveness and to monitor symptom control. - Anxiety and Depression: Increase Pristiq dosage to 50 mg per day by doubling current tablets, continuing to monitor for symptom improvement or any arising side effects. Reassess in four weeks. - Discussed omeprazole for gastroesophageal reflux disease and will evaluate the globus sensation in six to eight weeks. Patient was informed and verbally consented to the use of an ambient scribe for clinic note documentation during this visit. Discussion Notes During our discussion, we reviewed the current approach to managing ADHD with Adderall and addressed concerns about timing and dosing to minimize effects on sleep. I advised the patient to continue Adderall but adjust the dosage timing to earlier in the day. For anxiety and depression, I recommended an increase in Pristiq from 25 mg to 50 mg daily, explaining that this is often well-tolerated without additional side effects. The patient agreed and was reassured by discussing the strategies if new symptoms or side effects occur. I reminded the patient of the importance of follow-up in three to four weeks to reassess and adjust treatment as needed. Additionally, we reviewed a plan to monitor omeprazole's effect on her globus sensation, with a follow-up for that in six to eight weeks. Patient Instructions - Continue taking Adderall, adjusting the second dose time to earlier in the afternoon. - Increase Pristiq dosage to 50 mg by taking two 25 mg tablets daily. - Monitor for any side effects or changes in symptoms; contact me if necessary. - Return for a follow-up appointment in three to four weeks to assess progress and medication effectiveness. - Receive a tetanus booster as discussed during the visit. Total time spent caring for the patient today was 30 minutes. This includes time spent before the visit reviewing the chart, time spent during the visit, and time spent after the visit on documentation REPLACED BY [facility] Medical History (Updated 01/09/24 @ 15:49 by Lela Mayer [facility]) Depression Anxiety Family History (Updated 01/09/24 @ 11:17 by Debo Herbert) Maternal Grandmother Substance abuse Paternal Grandfather High blood pressure Social History (Updated 01/09/24 @ 11:14 by Debo Herbert) Housing: House Patient Tobacco Use Status: Never used Tobacco e-Cigarette/Vaping Use: Never Used Second Hand Smoke Exposure: No Substance Use Type: Marijuana service: No Current occupational status: employed 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 1. Little interest or pleasure in doing things: several days 2. Feeling down, depressed, or hopeless: more than half the days 3. Trouble falling or staying asleep, or sleeping too much: nearly every day 4. Feeling tired or having little energy: nearly every day 5. Poor appetite or overeating: not at all 6. Feeling bad about yourself - or that you are a failure or have let yourself or your family down: several days 7. Trouble concentrating on things, such as reading the newspaper or watching television: several days 8. Moving or speaking so slowly that other people could have noticed. Or the opposite - being so fidgety or restless that you have been moving around a lot more than usual: not at all 9. Thoughts that you would be better off or of hurting yourself in some way: not at all Total score: 11 Source: Developed by Drs. Toby Winters, Vicky Fuller, Tristian Bernal and colleagues, with an educational luba from [employer]. Thrive Questionnaire Date Thrive assessed: 01/14/24 I am a: Patient What is your living situation today?: I have a steady place to live Within the past 12 months, did the food you bought not last and you didn't have the money to get more?: Never true Within the past 12 months, did you worry whether your food would run out before you got money to buy more?: Never true Do you have trouble paying for medicines?: No Do you have trouble getting transportation to medical appointments?: No Do you have trouble paying your heating and electricity bill?: No Do you have trouble taking care of your child, family member or friend?: No Do you have trouble with day-to-day activities such as bathing, preparing meals, shopping, managing finances, etc.?: No Are you currently unemployed and looking for a job?: No Are you interested in more education?: Yes Please select the resources that you would like help with: None Currently or been in a relationship where the following occur: No concerns reported THRIVE Score: 0 AUDIT C Alcohol Use Questionnaire (AUDIT-C) 1. How often do you have a drink containing alcohol?: Monthly or less 2. How many drinks containing alcohol do you have on a typical day when you are drinking?: 1 or 2 3. How often do you have six or more drinks on one occasion?: Never Total Score: 1 ANJELICA-7 AMB Questionnaire ANJELICA-7 Date ANJELICA - 7 assessed: 01/14/24 Feeling nervous, anxious, or on edge: 1 = Several days Not being able to stop or control worryin = More than half the days Worrying too much about different things: 2 = More than half the days Trouble relaxin = Not at all Being so restless that it is hard to sit still: 2 = More than half the days Becoming easily annoyed or irritable: 2 = More than half the days Feeling afraid as if something awful might happen: 1 = Several days Total ANJELICA-7 score (0-4 normal; 5-9 mild; 10-14 moderate; 15-21 severe): 10 Source: Developed by Drs. Toby Winters, Vicky Fuller, Tristian Bernal and colleagues, with an educational luba from [employer]. ANJELICA-7 Assessment Billing ANJELICA-7 Assessment Tool: ANJELICA-7 Assessment [id number] Physical exam (Primary Care) Vital Signs: Last Vital Signs Temp 97.9 F 01/14/24 08:52 Pulse 84 01/14/24 08:52 Resp 16 01/14/24 08:52 BP 90/55 L 01/14/24 08:52 Pulse Ox 99 01/14/24 08:52 Oxygen Delivery Method Room Air 01/14/24 08:52 BMI result Body Mass Index 23.0 Tobacco/Smoking Status: Tobacco use Status Tobacco use date assessed 01/14/24 01/14/24 08:55 Patient Tobacco Use Status Never used Tobacco 01/14/24 08:32 e-Cigarette/Vaping Use Never Used 01/14/24 08:32 PHQ-9: PHQ-9 Score PHQ-9: Total score 11 01/14/24 09:22 Thrive Assessment: Date of Thrive Assessment Date Thrive assessed 01/14/24 01/14/24 08:32 Currently or been in a relationship where the following occur: No concerns reported Immunizations Boostrix Tdap 2.5 Lf unit-8 mcg-5 Lf/0.5 mL intramuscular syringe Performing Provider: NIMCO Lynch Performing Location: [facility] Administered by: Ashleigh Roberts RN on 01/14/24 09:22 Dose Route Admin Location Dispensed Lot Number Expiration Date [facility] Hot Frame Tender 0.5 mL IM Left Deltoid 0.5 mL [id number] 11/21/24 [id number] Telemedicine Clinic VIS Given Date VIS Provided VIS Publication Date 01/14/24 Single Vaccine 20 Eligibility Eligibility Date Funding Source Not [facility] Eligible 01/14/24 Private Coding Level of Care Code Est Pt Level 4 (49846) Complex EM visit Add On G2211 Diagnoses ANJELICA (generalized anxiety disorder) F41.1 Mild episode of recurrent major depressive disorder F33.0 Major depression episode severity: mild Attention deficit hyperactivity disorder (ADHD), combined type F90.2 Attention deficit-hyperactivity disorder type: combined inattentive-hyperactive Need for Tdap vaccination Z23 Additional Codes ANJELICA-7 Assessment Billing - ANJELICA-7 Assessment Tool: ANJELICA-7 Assessment [id number] ([id number]) Assessment & Plan Assessment & Plan (1) ANJELICA (generalized anxiety disorder): Comment: in counseling Code(s): F41.1 - Generalized anxiety disorder Category: Medical (2) MDD (major depressive disorder), recurrent episode: Comment: in counseling Code(s): F33.9 - Major depressive disorder, recurrent, unspecified Category: Medical Qualifiers: Major depression episode severity: mild Qualified Code(s): F33.0 - Major depressive disorder, recurrent, mild (3) ADHD: Code(s): F90.9 - Attention-deficit hyperactivity disorder, unspecified type Category: Medical Qualifiers: Attention deficit-hyperactivity disorder type: combined inattentive-hyperactive Qualified Code(s): F90.2 - Attention-deficit hyperactivity disorder, combined type (4) Need for Tdap vaccination: Code(s): Z23 - Encounter for immunization Category: Medical Plan . Orders: Orders TDaP Immunization Today Z23 - Encounter for immunization
[2024-01-14 08:52] VITALS: BP 90/55; PULSE 84; RESP 16; TEMP 36.6; O2SAT 99; BMI 23.0
== END 2024-01-14 09:21 | disposition home or self-care (01) ==
PROVIDERS: PCP Nurse Practitioner Family; Visit Provider Nurse Practitioner Family
DX: F41.1 Generalized anxiety disorder (principal); F33.0 Major depressive disorder, recurrent, mild; F90.2 Attention-deficit hyperactivity disorder, combined type; Z23 Encounter for immunization

== ENCOUNTER → 2024-01-14 08:26 | Outpatient (BNVA) | payer OTHER, SELFPAY | PROVIDERS: PCP Nurse Practitioner Family; Visit Provider Nurse Practitioner Family | DX: F41.1 Generalized anxiety disorder (principal); F33.0 Major depressive disorder, recurrent, mild; F90.2 Attention-deficit hyperactivity disorder, combined type; Z23 Encounter for immunization | CPT/HCPCS: 90471; 90715; 96127 ==

== ENCOUNTER 2024-02-06 09:59 | Outpatient (AMB) | payer OTHER, SELFPAY ==
--- NOTE | 2024-02-06 10:01 | A.OFFPC_ITS ---
Vital Signs 02/06/24 10:04 02/06/24 10:58 Height 5 ft 4 in Weight 130 lb BMI 22.3 BP 99/68 Blood Pressure Location Lt brachial Position Sitting Respiration 12 Pulse 110 H 90 Pulse Source Pulse Oximeter Auscultation Pulse Oximetry (%) 100 Oxygen Delivery Method Room Air Intake Visit Reasons: fu ADHD/MDD/ANJELICA/Globus sensation Intake Note: follow up adhd Pipe Buffer Required: No Allergies lexapro Allergy (Intermediate, Uncoded 02/06/24 10:46) Rash Medication List - Last Reconciled 02/06/24 by Lela Mayer, [facility]- desvenlafaxine succinate ER (Pristiq) 25 mg PO DAILY dextroamphetamine-amphetamine 10 mg (Adderall) 10 mg PO DIRECTED multivitamin 1 tab PO DAILY omeprazole 40 mg PO DAILY Tobacco use date assessed: 01/14/24 Dental Screening Dental Screen Date: 01/14/24 HPI HPI Comments History of Present Illness Details 28-year-old female with ANJELICA, MDD, ADHD, keratosis pilaris, facial acne Social: 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 Moving to [place]. Family hx: Maternal Grandmother substance abuse, ovarian ca, stomach ca - ; Dad coliits; Mom alive well. 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 The patient reports not noticing significant changes after increasing the dose of Pristiq, possibly affected by a missed dosage over a weekend trip, leading to a two-day lapse in medication. The period following medication change coincided with a stressful time due to house moving, which may also impact the perception of medication efficacy for anxiety and depression. The patient experiences persistent ADHD symptoms; while there is an improvement in organization and task initiation, pro crastination remains an issue amidst personal stresses. The patient has been actively managing these with routines, including regular walking and healthier eating habits, despite fluctuations in weight from 140 to 130 pounds since August. The patient also mentioned globus sensation and has been using omeprazole, although adherence is inconsistent due to travel. The sensation persists but is being managed with attempts to improve the routine and medication adherence. Overall, the patient's circumstances with moving and lifestyle changes are affecting the presentation of symptoms. Social History - Recently moved to a new residence, exp eriencing significant stress associated with closing an old house and interim accommodation. - Engages in regular walking and attempt s to maintain a balanced diet. - Reports a previous unhealthy food inta ke but is improving dietary habits. - Concerns about body image but actively engaging in weight management through exercise and diet. - No yard for dogs in the new residence, leading to more frequent outdoor walks. Physical Exam General: Awake, alert. No apparent distress Eyes: Sclera and conjunctiva clear bilaterally Cardiovascular: Regular rate and rhythm Respiratory: Clear to auscultation bilaterally, pulse updated to normal Mood and affect appropriate Plan - Continue with the current Pristiq dosa ge. Monitor the patient's response over the next few weeks in a less stressful life phase. - Reinforce routine medication adherence , especially considering missed doses over trips. - Follow up on symptoms of globus sensat ion with continued omeprazole usage, assessing any improvement. - Maintain ADHD management with the curr ent Adderall dosing; assess the need for future adjustments based on symptomatology. - Support lifestyle interventions, inclu ding physical activity and nutritional management for weight stabilization. - Update pharmacy location to [facility] in [facility] for medication refills. Patient was informed and verbally consented to the use of an ambient scribe for clinic note documentation during this visit. Discussion Notes We discussed the current management of the patient's ADHD, generalized anxiety disorder, major depressive disorder, and globus sensation. I explained that the two-day lapse in Pristiq might have contributed to the lack of noticeable improvement, and stressed the importance of consistency in taking medication. Given the difficult personal circumstances, I advised continued regularity and reassessment in a calmer period. We talked about dietary adjustments and maintaining physical activity as part of addressing ADHD and depressive symptoms. I ensured her of omeprazole continuation for globus sensation management and reinforced the importance of routine adherence. The patient inquired about coffee intake with Adderall, and I confirmed it's permissible if she feels fine. Patient Instructions - Continue taking Pristiq as prescribed, maintaining consistency. - Adhere to routine use of omeprazole an d monitor any changes in throat sensation. - Maintain current daily activities and dietary habit adjustments. - Use [facility] in [facility] for future prescription refills. - Monitor ADHD symptoms and continue cur rent Adderall regimen. - Stay regular with exercise routines, i ncluding walking the dogs. - Contact the clinic if any new or worse marley symptoms arise. - Follow up in four weeks to reassess th e effectiveness of the treatment plan. This note is constructed using voice recognition software. While every effort has been made to ensure accuracy in healthcare risk control consultant, still errors may have been included Sometimes, these errors may affect the content or meaning of the given sentence . Total time spent caring for the patient today was 40 minutes. This includes time spent before the visit reviewing the chart, time spent during the visit, and time spent after the visit on documentation [facility] Medical History (Updated 01/09/24 @ 15:[address] 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 49697 - PHQ-9 Billing: Patient declined-do not bill Source: Developed by Drs. Toby Winters, Vicky Fuller, Tristian Bernal and colleagues, with an educational luba from [employer]. Thrive Questionnaire Date Thrive assessed: 12/11/23 I am a: Patient What is your living situation today?: I have a steady place to live Within the past 12 months, did the food you bought not last and you didn't have the money to get more?: Never true Within the past 12 months, did you worry whether your food would run out before you got money to buy more?: Never true Do you have trouble paying for medicines?: No Do you have trouble getting transportation to medical appointments?: No Do you have trouble paying your heating and electricity bill?: No Do you have trouble taking care of your child, family member or friend?: No Do you have trouble with day-to-day activities such as bathing, preparing meals, shopping, managing finances, etc.?: No Are you currently unemployed and looking for a job?: No Are you interested in more education?: Yes Please select the resources that you would like help with: None Currently or been in a relationship where the following occur: No concerns reported THRIVE Score: 0 ANJELICA-7 AMB Questionnaire ANJELICA-7 Date ANJELICA - 7 assessed: 01/14/24 Source: Developed by Drs. Toby Winters, Vicky Fuller, Tristian Bernal and colleagues, with an educational luba from [employer]. Physical exam (Primary Care) Vital Signs: Last Vital Signs Pulse 90 02/06/24 10:58 Resp 12 02/06/24 10:04 BP 99/68 02/06/24 10:04 Pulse Ox 100 02/06/24 10:04 Oxygen Delivery Method Room Air 02/06/24 10:04 BMI result Body Mass Index 22.3 Tobacco/Smoking Status: Tobacco use Status Tobacco use date assessed 01/14/24 02/06/24 10:06 Patient Tobacco Use Status Never used Tobacco 02/06/24 10:06 e-Cigarette/Vaping Use Never Used 02/06/24 10:06 Thrive Assessment: Date of Thrive Assessment Date Thrive assessed 12/11/23 02/06/24 10:06 Currently or been in a relationship where the following occur: No concerns reported Coding Level of Care Code Est Pt Level 5 (19309) Complex EM visit Add On G2211 Diagnoses Globus sensation R09.A2 ANJELICA (generalized anxiety disorder) F41.1 Mild episode of recurrent major depressive disorder F33.0 Major depression episode severity: mild Attention deficit hyperactivity disorder (ADHD), combined type F90.2 Attention deficit-hyperactivity disorder type: combined inattentive- hyperactive Assessment & Plan Assessment & Plan (1) Globus sensation: Code(s): R09.A2 - Foreign body sensation, throat Category: Medical (2) ANJELICA (generalized anxiety disorder): Comment: in counseling Code(s): F41.1 - Generalized anxiety disorder Category: Medical (3) MDD (major depressive disorder), recurrent episode: Comment: in counseling Code(s): F33.9 - Major depressive disorder, recurrent, unspecified Category: Medical Qualifiers: Major depression episode severity: mild Qualified Code(s): F33.0 - Major depressive disorder, recurrent, mild (4) ADHD: Code(s): F90.9 - Attention-deficit hyperactivity disorder, unspecified type Category: Medical Qualifiers: Attention deficit-hyperactivity disorder type: combined inattentive- hyperactive Qualified Code(s): F90.2 - Attention-deficit hyperactivity disorder, combined type Plan . Medications: Changed From desvenlafaxine succinate ER (Pristiq) 25 mg PO DAILY 90 tabs 1RF To desvenlafaxine succinate ER 50 mg PO DAILY 90 tabs 1RF Refilled dextroamphetamine-amphetamine 10 mg (Adderall) Take 2 tabs in the morning (20mg) take additional 10 mg in the afternoon as needed for breakthrough sx; Max 30mg/day. 10 mg PO DIRECTED 90 tabs 0RF
[2024-02-06 10:04] VITALS: BP 99/68; PULSE 110; RESP 12; O2SAT 100; BMI 22.3
[2024-02-06 10:58] VITALS: PULSE 90
== END 2024-02-06 11:00 | disposition home or self-care (01) ==
PROVIDERS: PCP Nurse Practitioner Family; Visit Provider Nurse Practitioner Family
DX: R09.A2 Foreign body sensation, throat (principal); F41.1 Generalized anxiety disorder; F33.0 Major depressive disorder, recurrent, mild; F90.2 Attention-deficit hyperactivity disorder, combined type

== ENCOUNTER → 2024-02-06 09:59 | Outpatient (BNVA) | payer OTHER, SELFPAY | PROVIDERS: PCP Nurse Practitioner Family; Visit Provider Nurse Practitioner Family ==

== ENCOUNTER 2024-03-12 11:34 | Outpatient (AMB) | payer OTHER, SELFPAY ==
--- NOTE | 2024-03-12 11:38 | MHC.PC.OV ---
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: No Allergies escitalopram [From Lexapro] Allergy (Severe, Verified 03/12/24 11:47) Rash lexapro Allergy (Intermediate, Uncoded 03/12/24 11:47) Rash Medication List - Last Reconciled 03/12/24 by Lela Mayer, [employer]PER[employer]- desvenlafaxine succinate ER 50 mg PO DAILY dextroamphetamine-amphetamine 10 mg (Adderall) 10 mg PO DIRECTED multivitamin 1 tab PO DAILY Tobacco use date assessed: 01/14/24 Dental Screening Dental Screen Date: 01/14/24 HPI HPI Comments History of Present Illness Details 28-year-old female with ANJELICA, MDD, ADHD, keratosis pilaris, facial acne History of Present Illness The patient is a 28-year-old female presenting with a follow-up for ADHD, anxiety, depression, and globus sensation. The patient reports experiencing a sensation in her throat, initially managed with omeprazole, which was then discontinued due to difficulty swallowing. The globus sensation persists with no change in symptoms, characterized as intermittent. Previous consultations with ENT specialists have been unsatisfactory. Not much relief from omeprazole. For ADHD, the patient reports disruptions in routine affecting symptoms, illustrated by recent issues maintaining a structured schedule due to personal and professional obligations. Pristiq (desvenlafaxine) has been reinitiated with some consistency but no significant perceived improvement in anxiety or depressive symptoms. The patient describes overall emotional dysregulation and lack of medication response, despite not encountering adverse side effects. 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 The patient history includes dermatological consultation leading to Rogaine prescription to mitigate hair loss, alongside a recommendation to address hair-pulling with a beta-horacio like propranolol in a collaborative approach with this office. Social History - Housing: In the process of closing on a house - Family: Grandfather on hospice care - Routine: Struggles with maintaining a structured schedule - Medication adherence issues following personal disruptions - Reports pulling out hair as a self-reported behavior Exam: Awake alert, pleasant and cooperative MMM RRR LS CTAB Mood and affect appropriate Results Results Pill count today and normal Plan - Referral to ENT in [place] to address persistent globus pharyngeus. - Continual use of Pristiq for depression and anxiety; evaluate for potential addition of Buspirone or propranolol in the future if needed. - Consider genetic testing for medication response GeneSight) once available. - Recommend NAC n-acetylcysteine) supplementation for hair-pulling trichotillomania). - Suggest vitamins with iron for low iron levels, especially considering gut tolerance. - Implement Rogaine for hair loss as recommended by dermatology. - Encourage routine adherence to ADHD treatment plan including consistent schedules and balanced nutrition. Patient was informed and verbally consented to the use of an ambient scribe for clinic note documentation during this visit. Discussion Notes During our discussion, I reviewed with the patient the ongoing management of her ADHD, anxiety, depression, and globus sensation. For the globus sensation, an ENT referral was agreed upon, prioritizing [place] for easier access. We discussed the current status of ADHD and the psychological effects of inconsistent routines. I confirmed that despite taking Pristiq regularly, the patient has not yet noted significant improvements. We agreed to reconsider treatment adjustments including possible augmentation with Buspirone or propranolol if anxiety and hair-pulling continue. Additionally, the potential for GeneSight genetic testing was presented for future assessments. The benefits of NAC supplementation as a non-prescription approach for trichotillomania were also discussed. I highlighted considering vitamins with iron to improve iron levels without gastrointestinal discomfort. Needs to be taken w/ food. Avoid exercise immediatley after taking Adderral. Follow-up was planned in approximately two months to assess changes and treatment effectiveness. Patient Instructions - Schedule a follow-up appointment with the ENT in [place]. - Continue taking Pristiq as prescribed. Monitor any changes in symptoms. - Try NAC supplements for hair-pulling behavior. - Consider vitamins with iron to address low iron levels. - Use Rogaine as directed by your pony trimmer. - Maintain a structured daily routine and incorporate balanced nutrition. - Reach out via the patient portal for any changes in symptoms or further questions. RTO 2 MONTHS ROUTINE FU, SOONER PRN Total time spent caring for the patient today was 60 minutes. This includes time spent before the visit reviewing the chart, time spent during the visit, and time spent after the visit on documentation, reviewing laboratory results, diagnostic imaging, medications, performing a medically necessary evaluation, counseling on diagnoses, care coordination, ordering appropriate tests, ordering appropriate medications, review of tests performed by other providers, reporting test results with the patient, communication with other healthcare providers. 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 1. Little interest or pleasure in doing things: more than half the days 2. Feeling down, depressed, or hopeless: more than half the days 3. Trouble falling or staying asleep, or sleeping too much: nearly every day 4. Feeling tired or having little energy: nearly every day 5. Poor appetite or overeating: several days 6. Feeling bad about yourself - or that you are a failure or have let yourself or your family down: more than half the days 7. Trouble concentrating on things, such as reading the newspaper or watching television: several days 8. Moving or speaking so slowly that other people could have noticed. Or the opposite - being so fidgety or restless that you have been moving around a lot more than usual: more than half the days 9. Thoughts that you would be better off or of hurting yourself in some way: not at all Total score: 16 Depression Screening Interpretation: Positive Depression Screening Follow-up: Existing condition and In treatment Depression Screening Done: Yes 20496 - PHQ-9 Billing: Yes Source: Developed by Drs. Toby Winters, Vicky Fuller, Tristian Bernal and colleagues, with an educational luba from [employer]. Thrive Questionnaire Date Thrive assessed: 03/12/24 I am a: Patient What is your living situation today?: I have a steady place to live Within the past 12 months, did the food you bought not last and you didn't have the money to get more?: Never true Within the past 12 months, did you worry whether your food would run out before you got money to buy more?: Never true Do you have trouble paying for medicines?: No Do you have trouble getting transportation to medical appointments?: No Do you have trouble paying your heating and electricity bill?: No Do you have trouble taking care of your child, family member or friend?: No Do you have trouble with day-to-day activities such as bathing, preparing meals, shopping, managing finances, etc.?: No Are you currently unemployed and looking for a job?: No Are you interested in more education?: No Please select the resources that you would like help with: None Currently or been in a relationship where the following occur: No concerns reported THRIVE Score: 0 AUDIT C Alcohol Use Questionnaire (AUDIT-C) 1. How often do you have a drink containing alcohol?: 2-4 times a month 2. How many drinks containing alcohol do you have on a typical day when you are drinking?: 1 or 2 3. How often do you have six or more drinks on one occasion?: Never Total Score: 2 Score Reviewed/Action Taken: Yes ANJELICA-7 AMB Questionnaire ANJELICA-7 Date ANJELICA - 7 assessed: 03/12/24 Feeling nervous, anxious, or on edge: 1 = Several days Not being able to stop or control worryin = Several days Worrying too much about different things: 2 = More than half the days Trouble relaxin = Not at all Being so restless that it is hard to sit still: 1 = Several days Becoming easily annoyed or irritable: 1 = Several days Feeling afraid as if something awful might happen: 1 = Several days Total ANJELICA-7 score (0-4 normal; 5-9 mild; 10-14 moderate; 15-21 severe): 7 Source: Developed by Drs. Toby Winters, Vicky Fuller, Tristian Bernal and colleagues, with an educational luba from [employer]. ANJELICA-7 Assessment Billing ANJELICA-7 Assessment Tool: ANJELICA-7 Assessment 59715 Physical exam (Primary Care) Vital Signs: Last Vital Signs Pulse 86 03/12/24 11:41 Resp 12 03/12/24 11:41 BP 117/68 03/12/24 11:41 Pulse Ox 95 03/12/24 11:41 Oxygen Delivery Method Room Air 03/12/24 11:41 BMI result Body Mass Index 22.4 Tobacco/Smoking Status: Tobacco use Status Tobacco use date assessed 01/14/24 03/12/24 11:41 Patient Tobacco Use Status Never used Tobacco 03/12/24 11:41 e-Cigarette/Vaping Use Never Used 03/12/24 11:41 PHQ-9: PHQ-9 Score PHQ-9: Total score 16 03/12/24 12:03 Depression Screening Interpretation: Positive Depression Screening Follow-up: Existing condition and In treatment Thrive Assessment: Date of Thrive Assessment Date Thrive assessed 03/12/24 03/12/24 11:41 Currently or been in a relationship where the following occur: No concerns reported Coding Level of Care Code Est Pt Level 5 (10375) Complex EM visit Add On G2211 Diagnoses Mild episode of recurrent major depressive disorder F33.0 Major depression episode severity: mild ANJELICA (generalized anxiety disorder) F41.1 Attention deficit hyperactivity disorder (ADHD), combined type F90.2 Attention deficit-hyperactivity disorder type: combined inattentive-hyperactive Iron deficiency anemia due to chronic blood loss D50.0 Iron deficiency anemia type: chronic blood loss Globus sensation R09.A2 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 Additional Codes ANJELICA-7 Assessment Billing - ANJELICA-7 Assessment Tool: ANJELICA-7 Assessment [id number] ([id number]) PHQ-9 - 26975 - PHQ-9 Billing: Yes ([id number]) Assessment & Plan Assessment & Plan (1) MDD (major depressive disorder), recurrent episode: Comment: in counseling Code(s): F33.9 - Major depressive disorder, recurrent, unspecified Category: Medical Qualifiers: Major depression episode severity: mild Qualified Code(s): F33.0 - Major depressive disorder, recurrent, mild (2) ANJELICA (generalized anxiety disorder): Comment: in counseling Code(s): F41.1 - Generalized anxiety disorder Category: Medical (3) ADHD: Code(s): F90.9 - Attention-deficit hyperactivity disorder, unspecified type Category: Medical Qualifiers: Attention deficit-hyperactivity disorder type: combined inattentive-hyperactive Qualified Code(s): F90.2 - Attention-deficit hyperactivity disorder, combined type (4) Iron deficiency anemia: Comment: cont Iron supplement Code(s): D50.9 - Iron deficiency anemia, unspecified Category: Medical Qualifiers: Iron deficiency anemia type: chronic blood loss Qualified Code(s): D50.0 - Iron deficiency anemia secondary to blood loss (chronic) (5) Globus sensation: Code(s): R09.A2 - Foreign body sensation, throat Category: Medical (6) Trichotillomania: Code(s): F63.3 - Trichotillomania Category: Medical Plan . Orders: Referrals Ear/Nose/Throat Referral R09.A2 - Foreign body sensation, throat Medications: New acetylcysteine (bulk) ea miscellaneous Changed From multivitamin 1 tab PO DAILY 90 tabs 0RF To multivitamin with iron, buy OTC 1 tab PO DAILY 90 tabs 0RF Patient Instructions: NAC N-acetylcysteine? try getting online
[2024-03-12 11:41] VITALS: BP 117/68; PULSE 86; RESP 12; O2SAT 95; BMI 22.4
== END 2024-03-12 12:16 | disposition home or self-care (01) ==
PROVIDERS: PCP Nurse Practitioner Family; Visit Provider Nurse Practitioner Family
DX: D50.0 Iron deficiency anemia secondary to blood loss (chronic) (principal); F33.0 Major depressive disorder, recurrent, mild; F41.1 Generalized anxiety disorder; F90.2 Attention-deficit hyperactivity disorder, combined type; R09.A2 Foreign body sensation, throat; F63.3 Trichotillomania

== ENCOUNTER → 2024-03-12 11:34 | Outpatient (BNVA) | payer OTHER, SELFPAY | PROVIDERS: PCP Nurse Practitioner Family; Visit Provider Nurse Practitioner Family | DX: F33.0 Major depressive disorder, recurrent, mild (principal); F41.1 Generalized anxiety disorder; F90.2 Attention-deficit hyperactivity disorder, combined type; D50.0 Iron deficiency anemia secondary to blood loss (chronic); R09.A2 Foreign body sensation, throat; F63.3 Trichotillomania | CPT/HCPCS: 96127 ==

== ENCOUNTER 2024-05-12 15:11 | Outpatient (AMB) | payer OTHER, SELFPAY ==
--- NOTE | 2024-05-12 15:12 | A.OFFPC_ITS ---
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 Allergies escitalopram [From Lexapro] Allergy (Severe, Verified 05/12/24 15:13) Rash lexapro Allergy (Intermediate, Uncoded 03/12/24 11:47) Rash Medication List - Last Reconciled 05/12/24 by Lela Mayer, DELANEY-BC acetylcysteine (bulk) ea miscellaneous desvenlafaxine succinate ER 50 mg PO DAILY dextroamphetamine-amphetamine 10 mg (Adderall) 10 mg PO DIRECTED multivitamin 1 tab PO DAILY Tobacco use date assessed: 05/12/24 Dental Screening Dental Screen Date: 05/12/24 Did you have a dental visit in the last 12 months?: Yes Did you have a dental problem in the last 6 months where you did not have access to dental care?: No Was dental information given to patient?: Patient has dentist HPI HPI Comments History of Present Illness Details 28-year-old female with ANJELICA, MDD, ADHD, keratosis pilaris, facial acne, trichotilamania , Romi, due Dec 12, 2024 History of Present Illness The patient is a 28-year-old female presenting with follow-up concerns related to anxiety, depression, ADHD, and trichotillomania. - Reports increased depression and anxie ty symptoms despite current daily medication regimen with Pristiq 50 mg. Having crying spells and difficulty with daily activities, coupled with marital stress due to her , Romi's - due in November. - Denies any suicidal or homicidal ideat ion. - Identified skin changes and easy bruis ing, aligning with the onset of medication-induced vasculitis, as shown in images presented. - Her ADHD symptoms remain unmanaged wit h a present daily dosage of Adderall 30 mg as needed however this is in the setting of uncontrolled anxiety and depression. - Iron def anemia: Previously informed a bout vitamins with iron but has not initiated due to the task of finding them felt overwhelming. - Planned to initiate NAC for aid with t richotillomania but has yet to do so due to procurement issues. - Engaged in counseling but financial re straints of copay present a barrier Physical Exam General: Well developed, well nourished, in no acute distress. Appears stated age. Head: Normocephalic, atraumatic. Eyes: Pupils are equal, round and reactive to light and accommodation. Conjunctivae are clear. Vision grossly normal. Lungs: Clear to auscultation bilaterally. No rales, rhonchi or wheeze noted. Good air flow in all seay. Heart: Regular rate and rhythm. No murmurs, click, rubs or gallops are noted. Psych: Mood and affect appropriate. Reports feeling more depressed, having periods of crying, laying in bed, and inability to complete activities of daily living. Discussion Notes During this visit, I discussed with the patient the likely diagnosis of medication-induced vasculitis due to her current symptoms which appear consistent with starting Pristiq. I highlighted the need to taper off Pristiq and initiated a plan for this transition, starting with a prescription for 25 mg to be taken daily for the next 4 weeks. Furthermore, I advised the patient to procure Flintstones vitamins with added iron, which are chewable and manageable for her situation, along with N-acetylcysteine (NAC) for the management of trichotillomania; these can be conveniently ordered online. No changes were made to her ADHD management at this time. We also discussed her marital stress and I suggested researching online support groups that might provide additional assistance. I acknowledged her current financial strain with counseling copay and reinforced follow-up plans for close interim observation. Assessment and Plan 1. Generalized Anxiety Disorder and Terrie r Depressive Disorder: Symptoms have worsened on Pristiq 50 mg, exacerbated by marital stress. We will taper Pristiq to 25 mg daily, with follow-up in 4 weeks to reassess. 2. Attention-Deficit/Hyperactivity Disor luzmaria (ADHD): Symptoms persist despite Adderall 30 mg as needed. No medication change; revaluation will occur after anxiety management optimization. 3. 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 Follow-up will evaluate intervention effectiveness. 4. Medication-Induced Vasculitis: Observ ed skin changes suggest vasculitis associated with Pristiq, necessitating gradual Pristiq reduction. Patient Instructions Gradually reduce your medication dose by 25% each week. - Pay attention to any withdrawal sympto ms, such as nausea, headaches, or dizziness. - If symptoms become too intense, revert to the last tolerable dose until they resolve. - Communicate any sudden or worsening sy mptoms during the tapering process. - Begin tapering Pristiq to 25 mg once d aily for the next 4 weeks. Over the next four weeks, I want to eliminate one tablet/week Week 1: Take 6 days per day Week 2: Take 5 days per week Week 3: Take 4 days per week Etc Space them out as evenly as you can (like Mcxpev-[id number] once you get to 3 times per week) Be aware of side effects: nausea, headaches, dizziness, electric shock sensation. If this occurs, go back to the previous week dosing and repeat this. Example: You get down to 3 times per week and start to have side effects, take 4 times that week and then try again. I am going to hold off on starting any new medications at this time. - Purchase Flintstones vitamins with ext ra iron and start as soon as possible. - Obtain N-acetylcysteine online. - Explore free online support groups for psychological support. - Monitor skin changes and report any si gnificant developments. - Return for follow-up in 4 weeks or ear lier if symptoms worsen. Consent Consent was obtained from the patient regarding tapering off Pristiq and anticipated management approach for vasculitis concerns related to Pristiq. The risks, benefits, and alternatives regarding medication adjustments were thoroughly reviewed. She expressed understanding and agreed to the plan as discussed. Consent obtained verbally from the patient. Patient was informed and verbally consented to the use of an ambient scribe for clinic note documentation during this visit. Total time spent caring for the patient today was 69 minutes. This includes time spent before the visit reviewing the chart, time spent during the visit, and time spent after the visit on documentation, reviewing laboratory results, diagnostic imaging, medications, performing a medically necessary evaluation, counseling on diagnoses, care coordination, ordering appropriate tests, ordering appropriate medications, review of tests performed by other providers, reporting test results with the patient, communication with other healthcare providers. 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 [id number] - PHQ-9 Billing: Patient declined-do not bill Source: Developed by Drs. Toby Winters, Tristian Valadez and colleagues, with an educational luba from [employer]. Thrive Questionnaire Date Thrive assessed: 05/12/24 I am a: Patient What is your living situation today?: I have a steady place to live Within the past 12 months, did the food you bought not last and you didn't have the money to get more?: Never true Within the past 12 months, did you worry whether your food would run out before you got money to buy more?: Never true Do you have trouble paying for medicines?: No Do you have trouble getting transportation to medical appointments?: No Do you have trouble paying your heating and electricity bill?: No Do you have trouble taking care of your child, family member or friend?: No Do you have trouble with day-to-day activities such as bathing, preparing meals, shopping, managing finances, etc.?: No Are you currently unemployed and looking for a job?: No Are you interested in more education?: No Please select the resources that you would like help with: None Currently or been in a relationship where the following occur: No concerns reported THRIVE Score: 0 ANJELICA-7 AMB Questionnaire ANJELICA-7 Date ANJELICA - 7 assessed: 03/12/24 Source: Developed by Drs. Toby Winters, Vicky Fuller, Tristian Bernal and colleagues, with an educational luba from [employer]. Physical exam (Primary Care) Vital Signs: Last Vital Signs Temp 96.9 F 03/19/25 15:15 Pulse 111 H 05/12/24 15:15 Resp 12 05/12/24 15:15 BP 102/66 05/12/24 15:15 Pulse Ox 99 05/12/24 15:15 Oxygen Delivery Method Room Air 05/12/24 15:15 BMI result Body Mass Index 22.0 Tobacco/Smoking Status: Tobacco use Status Tobacco use date assessed 05/12/24 05/12/24 15:15 Patient Tobacco Use Status Never used Tobacco 05/12/24 15:15 e-Cigarette/Vaping Use Never Used 05/12/24 15:15 Thrive Assessment: Date of Thrive Assessment Date Thrive assessed 05/12/24 05/12/24 15:15 Currently or been in a relationship where the following occur: No concerns reported Coding Level of Care Code Est Pt Level 5 (90282) Complex EM visit Add On G2211 Diagnoses Attention deficit hyperactivity disorder (ADHD), combined type F90.2 Attention deficit-hyperactivity disorder type: combined inattentive- hyperactive ANJELICA (generalized anxiety disorder) F41.1 Iron deficiency anemia due to chronic blood loss D50.0 Iron deficiency anemia type: chronic blood loss Mild episode of recurrent major depressive disorder F33.0 Major depression episode severity: mild 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 Medication side effect T88.7XXA CPT Codes [facility] OUTPT/OFFICE VIS - G2212 Assessment & Plan Assessment & Plan (1) ADHD: Code(s): F90.9 - Attention-deficit hyperactivity disorder, unspecified type Category: Medical Qualifiers: Attention deficit-hyperactivity disorder type: combined inattentive- hyperactive Qualified Code(s): F90.2 - Attention-deficit hyperactivity disorder, combined type (2) ANJELICA (generalized anxiety disorder): Comment: in counseling Code(s): F41.1 - Generalized anxiety disorder Category: Medical (3) Iron deficiency anemia: Comment: cont Iron supplement Code(s): D50.9 - Iron deficiency anemia, unspecified Category: Medical Qualifiers: Iron deficiency anemia type: chronic blood loss Qualified Code(s): D50.0 - Iron deficiency anemia secondary to blood loss (chronic) (4) MDD (major depressive disorder), recurrent episode: Comment: in counseling Code(s): F33.9 - Major depressive disorder, recurrent, unspecified Category: Medical Qualifiers: Major depression episode severity: mild Qualified Code(s): F33.0 - Major depressive disorder, recurrent, mild (5) Trichotillomania: Code(s): F63.3 - Trichotillomania Category: Medical (6) Medication side effect: Comment: pristiq- vasculitis Code(s): T88.7XXA - Unspecified adverse effect of drug or medicament, initial encounter Category: Medical Plan . Medications: New desvenlafaxine succinate ER (Pristiq) take daily w 50mg tab for total dose 75mg/day 25 mg PO DAILY 90 tabs 1RF desvenlafaxine succinate ER (Pristiq) tapering off 25 mg PO DAILY 90 tabs 1RF
[2024-05-12 15:15] VITALS: BP 102/66; PULSE 111; RESP 12; TEMP 36.1; O2SAT 99; BMI 22.0
--- OUTSIDE RECORDS SUMMARY | 2024-05-12 17:12 | XMS_ITS | Data Portability ---
Author Organization [facility], [facility] Address [address] [place] [id number] Assessment Encounter Date Assessment Date Assessment LastModified by Organization Details LastModified Time 07/27/2010 07/27/2010 14 yo female with Cassie Vaginitis - Diflucan liquid (5ml correct dose) today and repeat in 3 days, return next wk if still sxs, prevention; STD screening - urine only, pt cell [phone] only if abnl, CONFIDENTIAL; Dysmenorrhea/Dur ation 8 days - discussed briefly OCPs as possible Rx, will try Motrin liquid for cramps, may make f/u appt if wants to try OCP Not available 09/24/2010 02:09:57 12/05/2010 12/05/2010 Healthy? ? ? 15 year old. Discussed family rules and importance of school. Discussed risk reduction including car safety.? ? ? Multivit with Vit D. WCC in 1 year. Not available 12/05/2010 13:23:19 12/24/2011 12/24/2011 Healthy 16? ? ? year old. Discussed risk reduction including car safety .Discussed future plans of school/work Multivit w/Vit D (aslo Iron if needed) Discussed eventual transition to adult provider. WCC in 1 year. Not available 12/24/2011 11:38:57 03/09/2012 03/09/2012 Candidal Vaginal Infxn - pt uncomfortable using Monistat, cannot swallow pills, Diflucan liquid x 3 days, preventition discussed, f/u prn kcamera Not available 03/09/2012 17:42:31 Plan of Treatment Reminders Order Date Submit Date Provider Last Modified By Organization Details Last Modified Time Details Appointments None recorded. Lab culture, throat 2012 013 [facility], [address] [place] [address], [phone], 3 15:01:58 rapid strep A 2012 013 [facility], [address] [place] [address], [phone], 3 15:01:58 chlamydia/G C amplified DNA PCR 2011 012 BRITANY [facility] (Centralized Electronic Ordering - All Locations), Patient Can Go To The Location Of Their Choice, [id number] 3 03:17:26 lipid panel - FASTING 2011 012 LISCO [facility] (Centralized Electronic Ordering - All Locations), Patient Can Go To The Location Of Their Choice, [id number] 3 03:17:26 hemocue hemoglobin, POC 2010 011 [facility], [address] [place] [address], [phone], 3 03:10:57 chlamydia/G C amplified DNA PCR 2010 011 LISCO [facility] (Centralized Electronic Ordering - All Locations), Patient Can Go To The Location Of Their Choice, [id number] 3 03:08:34 Referral physical therapist referral 2011 012 BRITANY Not available 3 03:17:26 gynecologis t referral 2011 012 BRITANY Not available 3 03:17:26 Procedures None recorded. Surgeries None recorded. Imaging None recorded. Medication Orders Diflucan 40 mg/mL oral suspension 2012 013 [id number], [address] [place], [address], 3 14:44:48 Diflucan 40 mg/mL oral suspension 2010 011 [id number], [address] [facility], [place], [address], 3 03:08:34 Patient TargetsNo targets recorded. Patient Instructions Encounter Date Encounter Id Patient Instructions Last Modified By Organization Details Last Modified Time 01/20/2013 [id number] likely viral dave l r/o strep-will r/o strep-sx care-f/u not better in 3 days-sooner prn Not available 01/20/2013 15:01:57 Reason for Referral Referring Physician: Masha Corcoran, Pediatric Medicine, Encounter Date: 12/24/2011 Referring Physician: Masha Corcoran Pediatric Medicine, Encounter Date: 12/24/2011 Results Created Date Observation Date Name Description Value Unit Range Abnormal Flag Note LastModifiedBy Organization Detail LastModifiedTime 01/21/20 13 01/20/2013 rapid strep A Rapid Strep negati ve Not Available [facility] [address] [place] [address], [phone], 01/20/2013 14:38:37 01/21/20 13 01/20/2013 cultu re, throa t Result 24 HR positi ve Not Available [facility] [address] [place] [address], [phone], 01/20/2013 14:38:37 01/21/20 13 01/20/2013 cultu re, throa t Result 48 HR positi ve Not Available [facility] [address] [place] [address], [phone], 01/20/2013 14:38:37 12/06/19 11 12/05/2010 hemoc ue hemog lobin , POC Hemoglobin 13.7 Not Available [facility] [address] [place] [address], [phone], 12/05/2010 13:29:06 07/20/19 11 07/19/2010 rapid strep A Rapid Strep negati ve Not Available [facility] [address] [place] [address], [address], 07/19/2010 15:52:25 07/20/19 11 07/19/2010 cultu re, throa t Result 24 HR negati ve Not Available [facility] [address] [place] [address], [phone], 07/19/2010 15:52:25 07/20/19 11 07/19/2010 cultu re, throa t Result 48 HR negati ve Not Available [facility] [address] [place] [address], [address], 07/19/2010 15:52:25 07/28/19 11 07/30/2010 chlam ydia/ GC DNA probe w/oco nfirm ation urine chlamydia amp probe NEGATI VE no chlam ydia trach omati s RNA detec lucy in this patie nt's sampl e. (refe rence range /norm al value : not detec lucy) Not Available [facility] (Centralized Electronic Ordering - All Locations) Patient Can Go To The Location Of Their Choice, [id number] 07/30/2010 13:43:08 07/28/19 11 07/30/2010 chlam ydia/ GC DNA probe w/oco nfirm ation urine GC amp probe NEGATI VE no neiss eria gonor rhoea e RNA detec lucy in this patie nt's sampl e. (refe rence range /norm al value : not detec lucy) note: this test uses trans cript ion media lucy ampli ficat ion metho d to detec t rrna from C.tra choma tis and N.favian orrho eae. A negat parker resul t does not precl ude infec tion with C.tra choma tis or N.favian orrho eae becau se resul ts are depen dent on adequ ate speci men colle ction , absen ce of inhib itors , and suffi cient rrna to BE detec lcuy. the aptim a combo 2 assay IS not inten ded for the evalu ation of suspe cted sexua l abuse or for other medic o legal indic ation s. IS true for all non cultu re metho ds, A posit parker speci men obtai clemencia from A patie nt after thera peuti c treat ment canno t BE inter prete d indic ating the prese nce of viabl e C.tra choma tis or N.favian orrho eae. thera peuti c failu re or succe ss canno t BE deter mined with the aptim a combo 2 assay since nucle ic acid may persi st follo wing appro priat e antim icrob ial thera py. A negat parker urine resul t for A patie nt WHO IS clini candelaria suspe cted of havin g A chlam ydial or gonoc occal infec tion does not rule out the prese nce of C.tra choma tis or N.favian orrho eae in the uroge nital tract . testi ng of an endoc ervic al(fe male) or ureth ral(m janelle) speci men IS recom santana d if there IS high clini bhavana suspi cion of infec tion. prese rvcyt liqui d Pap and urine sampl ing are not desig clemencia to repla ce cervi bhavana exams and endoc ervic al sampl es for diagn osis of femal e uroge nital infec tions . patie nts may have cervi citis , ureth ritis , urina ry tract infec tions , or vagin al infec tions due to other cause s or concu rrent infec tions with other agent s. Not Available [facility] (Centralized Electronic Ordering - All Locations) Patient Can Go To The Location Of Their Choice, [id number] 07/30/2010 13:43:08 12/24/19 12 12/24/2011 lipid panel cholesterol, total 202 mg/dL (0-170 ) high Not Available [facility] (Centralized Electronic Ordering - All Locations) Patient Can Go To The Location Of Their Choice, [id number] 12/24/2011 17:17:28 12/24/19 12 12/24/2011 lipid panel triglyceride 106 mg/dL (0-100 ) high Not Available [facility] (Centralized Electronic Ordering - All Locations) Patient Can Go To The Location Of Their Choice, [id number] 12/24/2011 17:17:28 12/24/19 12 12/24/2011 lipid panel HDL chol 72 mg/dL (>40) Not Available [facility] (Centralized Electronic Ordering - All Locations) Patient Can Go To The Location Of Their Choice, [id number] 12/24/2011 17:17:28 12/24/19 12 12/24/2011 lipid panel LDL cholesterol, calculated 109 mg/dL (0-109 ) Not Available [facility] (Centralized Electronic Ordering - All Locations) Patient Can Go To The Location Of Their Choice, [id number] 12/24/2011 17:17:28 12/24/19 12 12/24/2011 lipid panel non HDL cholesterol (calc) 130 mg/dL (0-139 ) Not Available [facility] (Centralized Electronic Ordering - All Locations) Patient Can Go To The Location Of Their Choice, [id number] 12/24/2011 17:17:28 12/24/19 12 12/25/2011 chlam ydia/ GC DNA probe w/oco nfirm ation urine chlamydia amp probe NEGATI VE no chlam ydia trach omati s RNA detec lucy in this patie nt's sampl e. (refe rence range /norm al value : not detec lucy) Not Available [facility] (Centralized Electronic Ordering - All Locations) Patient Can Go To The Location Of Their Choice, [id number] 12/25/2011 13:40:15 12/24/1912/25/2011 chlam ydia/ GC DNA probe w/oco nfirm ation urine GC amp probe NEGATI VE no neiss eria gonor rhoea e RNA detec lucy in this patie nt's sampl e. (refe rence range /norm al value : not detec lucy) note: this test uses trans cript ion media lucy ampli ficat ion metho d to detec t rrna from C.tra choma tis and N.favian orrho eae. A negat parker resul t does not precl ude infec tion with C.tra choma tis or N.favian orrho eae becau se resul ts are depen dent on adequ ate speci men colle ction , absen ce of inhib itors , and suffi cient rrna to BE detec lucy. the aptim a combo 2 assay IS not inten ded for the evalu ation of suspe cted sexua l abuse or for other medic o legal indic ation s. IS true for all non cultu re metho ds, A posit parker speci men obtai clemencia from A patie nt after thera peuti c treat ment canno t BE inter prete d indic ating the prese nce of viabl e C.tra choma tis or N.favian orrho eae. thera peuti c failu re or succe ss canno t BE deter mined with the aptim a combo 2 assay since nucle ic acid may persi st follo wing appro priat e antim icrob ial thera py. A negat parker urine resul t for A patie nt WHO IS clini candelaria suspe cted of havin g A chlam ydial or gonoc occal infec tion does not rule out the prese nce of C.tra choma tis or N.favian orrho eae in the uroge nital tract . testi ng of an endoc ervic al(fe male) or ureth ral(m janelle) speci men IS recom santana d if there IS high clini bhavana suspi cion of infec tion. prese rvcyt liqui d Pap and urine sampl ing are not desig clemencia to repla ce cervi bhavana exams and endoc ervic al sampl es for diagn osis of femal e uroge nital infec tions . patie nts may have cervi citis , ureth ritis , urina ry tract infec tions , or vagin al infec tions due to other cause s or concu rrent infec tions with other agent s. Not Available [facility] (Centralized Electronic Ordering - All Locations) Patient Can Go To The Location Of Their Choice, [id number] 12/25/2011 13:40:15 08/12/19 15 08/04/2014 imagi ng/di agnos tic resul t No observ ation record ed. Not Available 2014 17:56:53 Result Notes None recorded. Problems Name Problem SNOMED Code Status Onset Date Resolution Date Notes Provider Name and Address Organization Details Recorded Time Acute pharyngiti s 679354363 Active Masha Corcoran MD [address] [place] [address], , [facility] 3 15:01:57 Streptococ bhavana sore throat 28239996 Active Yong Nuñez MD [address] [facility], [place], [address] , [facility] 3 09:46:17 Failure to thrive 62493723 Completed 12/22/2011 Not Available [facility] 3 03:01:18 Acute conjunctiv itis 84361047 Completed 12/22/2011 Not Available [facility] 3 03:01:18 Acute conjunctiv itis 11248715 Completed 200806/10/2009 Not Available [facility] 3 03:01:18 Adjustment disorder 41853270 Active Not Available [facility] 3 03:01:18 Dysfunctio nal uterine bleeding Active Not Available [facility] 3 03:01:18 Acute pharyngiti s 276280468 Completed 200806/10/2009 Not Available [facility] 3 03:01:18 Acute pharyngiti s 711289036 Completed 12/22/2011 Not Available [facility] 3 03:01:18 Backache 990028290 Active Not Available [facility] 3 03:01:18 Backache 031744364 Completed 200706/10/2009 Not Available [facility] 3 03:01:18 Viral disease 44624599 Completed 200806/10/2009 [facility] Available [facility] 3 03:01:18 Dysmenorrh ea 033772026 Active Not Available [facility] 3 03:01:18 Abnormal weight loss 669141736 Completed 200812/22/2011 Not Available [facility] 3 03:01:18 Vaginitis and vulvovagin itis Active Not Available [facility] 3 03:01:18 Vaginitis and vulvovagin itis Completed 12/22/2011 Not Available [facility] 3 03:01:18 Notes: Problem Notes None recorded. Procedures Surgical History None recorded. Imaging Results Imaging Date Name Status LastModified by Organiz ation Details LastModified Time 08/04/2014 imaging/diag nostic result completed Information not available 08/11/2014 17:56:53 Procedure Notes None recorded. Medical Equipment None Reported. Allergies No known drug allergies Medications Name Sig Start Date Stop Date Status Note LastModified by Organization Details LastModified Time Diflucan 40 mg/mL oral suspension Take 25 mL every day by oral route for 3 days. 03/12 completed Not Available Not Available Not Available polymyxin B sulfate 10,000 unit-trimeth oprim 1 mg/mL eye drops Instill 2 drops into both eyes 3 times daily for 5 days active Not Available Not Available No t Available amoxicillin 400 mg/5 mL oral suspension Take 12.5 mL twice a day by oral route for 10 days. 01/31 completed Not Available Not Available Not Available Vitals Date Recorded Body weight Provider Name an d Address Organization Details Last Updated DateTime 07/27/2010 62691.85012 g Lenora Mar [facility] 07/27/2010 10:42:51 Date Recorded Body height Body weight Body mass index (BMI) Systolic blood pressure Diastolic blood pressure Provider Name and Address Organization Details Last Updated DateTime 12/05/2010 163.195 cm 44261.50 9694 g 18.1 kg/m2 114 mm[Hg] 58 mm[Hg] [facility] 1 12:49:01 Date Recorded Body height Body weight Body mass index (BMI) Systolic blood pressure Diastolic blood pressure Provider Name and Address Organization Details Last Updated DateTime 12/24/2011 163.195 cm 40462.72 3752 g 18.7 kg/m2 112 mm[Hg] 64 mm[Hg] [facility] 2 11:00:31 Date Recorded Body height Body weight Body mass index (BMI) Body temperature Systolic blood pressure Diastolic blood pressure Provider Name and Address Organization Details Last Updated DateTime 3 164.465 cm 93931.1 77072 g 18.2 kg/m2 99.4 [degF] 98 mm[Hg] 68 mm[Hg] Mary Mckinnon [facility] 3 14:47:24 Social History Question Answer Notes LastModified by Organizat ion Details LastModified Time Tobacco Smoking Status Never Smoker Alison Kelly null, [facility] 12/24/2011 11:00:31 Parent's Marital Status --but Live Together- difficult At Home Information not available 12/29/2010 Home Situation Both Parents radhames hawthorne not available 12/24/2011 Siblings Loreta (F) 06/06/01 Information not available 12/29/2010 Parent's Name Fidelina [email or web address] Information not available 12/29/2010 Parent's Name Yusuf Information not available 12/29/2010 Are You Passively Exposed To Smoke? No nasselin Information not available 01/20/2013 Sex: Unknown Functional Status None recorded. Mental Status None recorded. Family History Relationship Description Onset Age of this Age Resolved Age Notes LastModified by Organization Details LastModified Time Maternal Grandmother Malignant neoplastic disease cervic al (previ ously record ed as Cancer ) [id number] [id number] Not available 08/03/2012 03:00:17 Paternal Grandfather Heart disease [email or web address] [id number] Not available 08/03/2012 03:00:17 Paternal Grandfather Hypercholest erolemia previo usly record ed as Elevat ed Choles terol [email or web address] [id number] Not available 08/03/2012 03:00:17 Medical History Condition Response ENDOCRINE PROBLEMS/DIABETES Y OTHER Y PSYCH PROBLEMS Y Gynecological History Statement/Question Response Age at onset of periods 09/01 Obstetrics History GPAL:G 0 P 0 0 0 0 Immunizations Vaccine Type Date Status Note Provider Nam e and Address Organization Details Recorded Time varicella 7 completed Not Available [facility] 12/29/2010 03:18:24 meningococcal MCV4P 2 completed Not Available [facility] 03/13/2019 02:33:31 Hib, unspecified formulation 4 completed Not Available [facility] 12/29/2010 03:19:09 OPV 5 completed Not Available [facility] 12/29/2010 03:19:09 DTP 5 completed Not Available [facility] 12/29/2010 03:19:09 Hep B, adolescent or pediatric 5 completed Not Available [facility] 12/29/2010 03:19:09 DTP 4 completed Not Available [facility] 12/29/2010 03:19:09 DTP 4 completed Not Available [facility] 12/29/2010 03:19:09 Hep B, adolescent or pediatric 4 completed Not Available [facility] 12/29/2010 03:19:09 Hib, unspecified formulation 5 completed Not Available [facility] 12/29/2010 03:19:09 OPV 4 completed Not Available [facility] 12/29/2010 03:19:09 DTP 6 completed Not Available [facility] 12/29/2010 03:19:09 MMR 5 completed Not Available [facility] 12/29/2010 03:19:09 Hib, unspecified formulation 4 completed Not Available [facility] 12/29/2010 03:19:09 Hib, unspecified formulation 5 completed Not Available [facility] 12/29/2010 03:19:09 Hep B, adolescent or pediatric 4 completed Not Available [facility] 12/29/2010 03:19:09 IPV 8 completed Not Available [facility] 12/29/2010 03:19:09 DTaP 8 completed Not Available [facility] 12/29/2010 03:19:09 MMR 8 completed Not Available [facility] 12/29/2010 03:19:09 OPV 4 completed Not Available [facility] 12/29/2010 03:19:09 meningococcal ACWY, unspecified formulation 8 completed Not Available [facility] 12/29/2010 03:18:24 varicella 8 completed Not Available [facility] 12/29/2010 03:16:44 Tdap 7 completed [facility] Available [facility] 12/29/2010 03:16:44 Past Encounters Encounter ID Performer Location Encounter Start Date Encounter Closed Date Diagnosis/Indication Diagnosis SNOMED-CT Code Diagnosis ICD10 Code Diagnosis Note [id number] [facility] [address] [place] [address] 10/23/2006 14:53:53 10/23/2006 15:47:27 [id number] [facility] [address] [place] [address] 04/09/2007 13:59:43 04/09/2007 14:16:27 [id number] [facility] [address] [place] [address] 12/29/2007 11:02:01 11/03/2008 01:23:50 [id number] [facility] [address] [place] [address] 07/15/2008 10:58:05 07/15/2008 11:18:50 [id number] [facility] [address] [place] [address] 08/24/2008 15:24:10 08/24/2008 16:30:01 [id number] [facility] [address] [place] [address] 05/04/2009 13:23:27 05/04/2009 14:55:14 [id number] [facility] [address] [place] [address] 06/13/2009 15:17:36 06/13/2009 16:18:40 [id number] [facility] [address] [place] [address] 07/25/2009 10:43:02 07/25/2009 11:55:49 [id number] [facility] [address] [place] [address] 09/12/2009 16:35:16 09/12/2009 18:05:53 [id number] [facility] [address] [place] [address] 12/05/2009 13:10:13 12/05/2009 15:13:24 [id number] [facility] [address] [place] [address] 07/19/2010 15:21:05 07/19/2010 16:11:53 [id number] [facility] [address] [facility] [place] [address] 07/27/2010 10:11:05 07/27/2010 11:18:16 [id number] [facility] [address] [facility] [place] [address] 12/05/2010 12:37:09 12/05/2010 17:00:26 [id number] Masha Corcoran MD [facility] [address] [facility] [place] [address] 12/24/2011 10:22:14 12/24/2011 12:13:28 [id number] Mary Mckinnon [facility] [address] [facility] [place] [address] 03/09/2012 16:43:58 03/09/2012 17:28:38 [id number] Yong Nuñez MD [facility] [address] [place] [address] [place] [address] 01/20/2013 14:27:08 01/20/2013 15:37:10 Acute pharyngitis [id number] Health Concerns Section Related Observation LastModified by Organization Detai ls LastModified Time None Recorded Concern Status LastModified by Organization Details LastModified Time None Recorded Advance Directives Directive None Recorded Payers Encounter Date Sequence Insurance Name Policy Number Policy Ballard Covered Member ID Ballard Member ID Guarantor Name 07/27/2010 1 [employer] [employer] Yusuf Brooks [id number] Falguni Malirvin 12/05/2010 1 [employer] Yusuf Brooks [id number] Falguni Maloni 12/24/2011 1 [place] Yusuf Brooks [id number] Falguni Malirvin 03/09/2012 1 [place] Yusuf Brooks [id number] Falguni Malirvin 03/09/2012 1 [facility] [place] [id number] Fidelina Brooks [id number] Falguni Maloni 01/20/2013 1 [facility] [place] [place] [id number] 23 Fidelina Brooks [id number] Falguni Brooks OBGyn Episode No OBEpisode recorded.
[2024-05-12 17:32] VITALS: PULSE 80
== END 2024-05-12 15:53 | disposition home or self-care (01) ==
LOC: HO.HMCFM 15:11
PROVIDERS: PCP Nurse Practitioner Family; Visit Provider Nurse Practitioner Family
DX: F90.2 Attention-deficit hyperactivity disorder, combined type (principal); F41.1 Generalized anxiety disorder; D50.0 Iron deficiency anemia secondary to blood loss (chronic); F33.0 Major depressive disorder, recurrent, mild; F63.3 Trichotillomania; T88.7XXA Unspecified adverse effect of drug or medicament, initial encounter

== ENCOUNTER 2024-06-11 12:48 | Outpatient (AMB) | payer OTHER, SELFPAY ==
--- NOTE | 2024-06-11 12:50 | A.OFFPC_ITS ---
Vital Signs 06/11/24 12:57 Height 5 ft 5 in Weight 128 lb 6 oz BMI 21.4 BP 108/68 Blood Pressure Location Rt brachial Position Sitting Respiration 14 Pulse 97 Pulse Source Pulse Oximeter Temp 98.2 F Temp Source Temporal Artery Scan Pulse Oximetry (%) 96 Oxygen Delivery Method Room Air Intake Visit Reasons: 4 weeks 30 min Mood FU Intake Note: Falguni presents in the office today for a 4 week follow up. Allergies escitalopram [From Lexapro] Allergy (Severe, Verified 06/11/24 13:06) Rash lexapro Allergy (Intermediate, Uncoded 06/11/24 13:06) Rash Medication List - Last Reconciled 06/11/24 by DELANEY Lynch-BC acetylcysteine (bulk) ea miscellaneous desvenlafaxine succinate ER (Pristiq) 25 mg PO DAILY dextroamphetamine-amphetamine 10 mg (Adderall) 10 mg PO DIRECTED multivitamin 1 tab PO DAILY Tobacco use date assessed: 06/11/24 Dental Screening Dental Screen Date: 06/11/24 Did you have a dental visit in the last 12 months?: No Was dental information given to patient?: Patient has dentist HPI HPI Comments History of Present Illness Details 28-year-old female with ANJELICA, MDD, ADHD, keratosis pilaris, facial acne, trichotilamania , Romi, due Dec 12, 2024 History of Present Illness - The patient is a 28-year-old female pr esenting with mood instability and medication adjustment: - The patient is transitioning off Pristiq and experiencing increased fatigue, low energy, and lightheadedness, worsened by current tapering process. Takes 3 x week now. Week 1: Take 6 days per day Week 2: Take 5 days per week Week 3: Take 4 days per week Etc Space them out as evenly as you can (like Azhdbd-Tdzwgdhud-Lowdhb once you get to 3 times per week) Be aware of side effects: nausea, headaches, dizziness, electric shock sensation. If this occurs, go back to the previous week dosing and repeat this. Example: You get down to 3 times per week and start to have side effects, take 4 times that week and then try again. - Skin condition has improved w/ taper. - When taking the recommended NAC, she e xperiences stomach upset, planning to switch timing to before bed to minimize the effect. - Did start MVI QD, Flinstones. - Patient currently facing added stress due to work demands and housing changes; finding current resources and support lacking. - Uses Adderall as needed for energy & A DHD - Cont in counseling; Did not find suppo rt group yet. - Denies SI/HI. Physical Exam General: Well developed, well nourished, in no acute distress. Appears stated age. Head: Normocephalic, atraumatic. Eyes: Pupils are equal, round and reactive to light and accommodation. Conj unctivae are clear. Vision grossly normal. Lungs: Clear to auscultation bilaterally. No rales, rhonchi or wheeze noted. Good air flow in all seay. Heart: Regular rate and rhythm. No murmurs, click, rubs or gallops are noted. Psych: Mood and affect appropriate. Discussion Notes In today's session, we extensively discussed the patient's ongoing issues with mood instability and reviewed the tapering off Pristiq, which is necessary due to side effects. I suggested starting Buspirone as an alternative strategy to manage anxiety while tapering off the Pristiq, explaining its focus on anxiety a nd its faster onset compared to other medications. I assured her that it is a safe choice with minimal side effects. The patient expressed openness to consulting with Izzy Kaur @ the [facility] bridge program and was encouraged to ensure follow-up occurs through the referral process. While adjustments are ongoing, we also discussed trying the NAC at night to reduce stomach upset. The patient agreed to take an active role in also finding a supportive therapy group for additional emotional support. Finally, we planned follow-up coordination depending on her consultation with Bere Lauren within 4-5 weeks or sooner if needed. Assessment and Plan 1. Generalized Anxiety Disorder Patient is transitioning to Buspirone for anxiety symptoms management following side effects of Pristiq. Referral to psych nurse practitioner recommended. 2. Major Depressive Disorder The patient is engaged in managing depressive symptoms with tailored medication schedule 3. Attention Deficit Hyperactivity Disor luzmaria Adderall regime to continue as needed, providing symptom control particularly during tapering cycle. 4. Side effects to Pristiq Patient steadily completing Pristiq taper, initiated Buspirone for anxiety assistance. Patient Instructions - Continue tapering off Pristiq as previ ously discussed. - Start Buspirone as prescribed; up to 3 0 mg/day. Cement with timing to optimize the effect and monitor for symptoms. - Take NAC and multivitamin with iron at night to lessen stomach upset. - Utilize Adderall based on daily need t o manage focus and productivity. - Actively seek out and implement additi onal support systems, such as online support groups. - Follow up with Izzy Lauren for bridge program consultation; confirm appointment when available. - Return for follow-up visit in 4-5 week s unless earlier seen by the bridge program. Consent Patient was informed and verbally consented to the use of an ambient scribe for clinic note documentation during this visit. Total time spent caring for the patient today was 35 minutes. This includes time spent before the visit reviewing the chart, time spent during the visit, and time spent after the visit on documentation, reviewing laboratory results, diagnostic imaging, medications, performing a medically necessary evaluation, counseling on diagnoses, care coordination, ordering appropriate tests, ordering appropriate medications, review of tests performed by other providers, reporting test results with the patient, communication with other healthcare providers. 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 1. Little interest or pleasure in doing things: several days 2. Feeling down, depressed, or hopeless: nearly every day 3. Trouble falling or staying asleep, or sleeping too much: nearly every day 4. Feeling tired or having little energy: nearly every day 5. Poor appetite or overeating: not at all 6. Feeling bad about yourself - or that you are a failure or have let yourself or your family down: nearly every day 7. Trouble concentrating on things, such as reading the newspaper or watching television: nearly every day 8. Moving or speaking so slowly that other people could have noticed. Or the opposite - being so fidgety or restless that you have been moving around a lot more than usual: not at all 9. Thoughts that you would be better off or of hurting yourself in some way: not at all Total score: 16 Depression Screening Interpretation: Positive Depression Screening Done: Yes 84424 - PHQ-9 Billing: Patient declined-do not bill Source: Developed by Drs. Toby Winters, Vicky Fuller, Tristian Bernal and colleagues, with an educational luba from [email or web address]. Thrive Questionnaire Date Thrive assessed: 06/11/24 I am a: Patient What is your living situation today?: I have a steady place to live Within the past 12 months, did the food you bought not last and you didn't have the money to get more?: Never true Within the past 12 months, did you worry whether your food would run out before you got money to buy more?: Never true Do you have trouble paying for medicines?: No Do you have trouble getting transportation to medical appointments?: No Do you have trouble paying your heating and electricity bill?: No Do you have trouble taking care of your child, family member or friend?: No Do you have trouble with day-to-day activities such as bathing, preparing meals, shopping, managing finances, etc.?: No Are you currently unemployed and looking for a job?: No Are you interested in more education?: No Please select the resources that you would like help with: None Currently or been in a relationship where the following occur: No concerns reported THRIVE Score: 0 AUDIT C Alcohol Use Questionnaire (AUDIT-C) 1. How often do you have a drink containing alcohol?: 2-4 times a month 2. How many drinks containing alcohol do you have on a typical day when you are drinking?: 1 or 2 3. How often do you have six or more drinks on one occasion?: Never Total Score: 2 Score Reviewed/Action Taken: No ANJELICA-7 AMB Questionnaire ANJELICA-7 Date ANJELICA - 7 assessed: 01/17/25 Feeling nervous, anxious, or on edge: 3 = Nearly every day Not being able to stop or control worryin = Nearly every day Worrying too much about different things: 3 = Nearly every day Trouble relaxin = Nearly every day Being so restless that it is hard to sit still: 3 = Nearly every day Becoming easily annoyed or irritable: 3 = Nearly every day Feeling afraid as if something awful might happen: 1 = Several days Total ANJELICA-7 score (0-4 normal; 5-9 mild; 10-14 moderate; 15-21 severe): 19 Source: Developed by Drs. Toby Winters, Vicky Fuller, Tristian Bernal and colleagues, with an educational luba from [email or web address]. ANJELICA-7 Assessment Billing ANJELICA-7 Assessment Tool: ANJELICA-7 Assessment [id number] Physical exam (Primary Care) Vital Signs: Last Vital Signs Temp 98.2 F 06/11/24 12:57 Pulse 97 06/11/24 12:57 Resp 14 06/11/24 12:57 BP 108/68 06/11/24 12:57 Pulse Ox 96 06/11/24 12:57 Oxygen Delivery Method Room Air 06/11/24 12:57 BMI result Body Mass Index 21.4 Tobacco/Smoking Status: Tobacco use Status Tobacco use date assessed 06/11/24 06/11/24 13:00 Patient Tobacco Use Status Never used Tobacco 06/11/24 12:55 e-Cigarette/Vaping Use Never Used 06/11/24 12:55 PHQ-9: PHQ-9 Score PHQ-9: Total score 16 06/11/24 13:06 Depression Screening Interpretation: Positive Thrive Assessment: Date of Thrive Assessment Date Thrive assessed 06/11/24 06/11/24 13:00 Currently or been in a relationship where the following occur: No concerns reported Coding Level of Care Code Est Pt Level 4 (75178) Complex EM visit Add On G2211 Diagnoses Attention deficit hyperactivity disorder (ADHD), combined type F90.2 Attention deficit-hyperactivity disorder type: combined inattentive- hyperactive Mild episode of recurrent major depressive disorder F33.0 Major depression episode severity: mild ANJELICA (generalized anxiety disorder) F41.1 Medication side effect T88.7XXA 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 Additional Codes ANJELICA-7 Assessment Billing - ANJELICA-7 Assessment Tool: ANJELICA-7 Assessment [id number] ([id number]) Assessment & Plan Assessment & Plan (1) ADHD: Code(s): F90.9 - Attention-deficit hyperactivity disorder, unspecified type Category: Medical Qualifiers: Attention deficit-hyperactivity disorder type: combined inattentive- hyperactive Qualified Code(s): F90.2 - Attention-deficit hyperactivity disorder, combined type (2) MDD (major depressive disorder), recurrent episode: Comment: in counseling Code(s): F33.9 - Major depressive disorder, recurrent, unspecified Category: Medical Qualifiers: Major depression episode severity: mild Qualified Code(s): F33.0 - Major depressive disorder, recurrent, mild (3) ANJELICA (generalized anxiety disorder): Comment: in counseling Code(s): F41.1 - Generalized anxiety disorder Category: Medical (4) Medication side effect: Comment: pristiq- vasculitis Code(s): T88.7XXA - Unspecified adverse effect of drug or medicament, initial encounter Category: Medical (5) Trichotillomania: Code(s): F63.3 - Trichotillomania Category: Medical Plan . Orders: Referrals Psychiatry Outpatient Consultation Service F33.0 - Major depressive disorder, recurrent, mild, F41.1 - Generalized anxiety disorder, F63.3 - Trichotillomania, F90.2 - Attention-deficit hyperactivity disorder, combined type, T88.7XXA - Unspecified adverse effect of drug or medicament, initial encounter Medications: New buspirone 10 mg PO TID 90 tabs 0RF
[2024-06-11 12:57] VITALS: BP 108/68; PULSE 97; RESP 14; TEMP 36.8; O2SAT 96; BMI 21.4
--- OUTSIDE RECORDS SUMMARY | 2024-06-11 13:22 | XMS_ITS | Data Portability ---
Author Organization [facility], [facility] Address [address] [place] [id number] Assessment Encounter Date Assessment Date Assessment LastModified by Organization Details LastModified Time 07/27/2010 07/27/2010 14 yo female with Cassie Vaginitis - Diflucan liquid (5ml correct dose) today and repeat in 3 days, return next wk if still sxs, prevention; STD screening - urine only, pt cell [phone] only if abnl, CONFIDENTIAL; Dysmenorrhea/Dur ation 8 [...] None recorded. Lab culture, throat 2012 013 [facility], [address] [place] [address], [phone], 3 15:01:58 rapid strep A 2012 013 [facility], [address] [place] [address], [id number], 3 15:01:58 chlamydia/G C amplified DNA PCR 2011 012 [facility] (Centralized Electronic Ordering - All Locations), Patient Can Go To The Location Of Their Choice, [id number] 3 03:17:26 lipid panel - FASTING 2011 012 [place] [facility] (Centralized Electronic Ordering - All Locations), Patient Can Go To The Location Of Their Choice, [id number] 3 03:17:26 hemocue hemoglobin, POC 2010 011 [facility], [address] [place] [address], [phone], 3 03:10:57 chlamydia/G C amplified DNA PCR 2010 011 [place] [facility] (Centralized Electronic Ordering - All Locations), Patient Can Go To The Location Of Their Choice, [id number] 3 03:08:34 Referral physical therapist referral 2011 012 BRITANY Not available 3 03:17:26 gynecologis t referral 2011 012 BR[facility]ANY Not available 3 03:17:26 Procedures None recorded. Surgeries None recorded. Imaging None recorded. Medication Orders Diflucan 40 mg/mL oral suspension [id number] [address] [place], [address], 3 14:44:48 Diflucan 40 mg/mL oral suspension 2010 011 [id number], [address] [facility], [place], [address], 3 03:08:34 Patient TargetsNo targets recorded. Patient Instructions Encounter Date Encounter Id Patient Instructions Last Modified By Organization Details Last Modified Time 01/20/2013 [id number] likely viral dave l r/o strep-will r/o [...] A Rapid Strep negati ve Not Available [facility] [address] [place] [address], [phone], 01/20/2013 14:38:37 01/21/20 13 01/20/2013 cultu re, throa t Result 24 HR positi ve Not Available [facility] [address] [place] [address], [phone], 01/20/2013 14:38:37 01/21/20 13 01/20/2013 cultu re, throa t Result 48 HR positi ve Not Available [facility] [address] [place] [address], [phone], 01/20/2013 14:38:37 12/06/19 11 12/05/2010 hemoc ue hemog lobin , POC Hemoglobin 13.7 Not Available [facility] [address] [place] [address], [phone], 12/05/2010 13:29:06 07/20/19 11 07/19/2010 rapid strep A Rapid Strep negati ve Not Available [facility] [address] [place] [address], [phone], 07/19/2010 15:52:25 07/20/19 11 07/19/2010 cultu re, throa t Result 24 HR negati ve Not Available [facility] [address] [place] [address], [phone], 07/19/2010 15:52:25 07/20/19 11 07/19/2010 cultu re, throa t Result 48 HR negati ve Not Available [facility] [address] [place] [address], [phone], 07/19/2010 15:52:25 07/28/19 11 07/30/2010 chlam ydia/ GC DNA probe w/oco nfirm ation urine chlamydia amp probe NEGATI VE no chlam ydia trach omati s RNA detec lucy in this patie nt's sampl e. (refe rence range /norm al value : not detec lucy) Not Available [facility] (Centralized Electronic Ordering - All Locations) Patient Can Go To The Location Of Their Choice, [id number] 07/30/2010 13:43:08 07/28/19 11 07/30/2010 chlam ydia/ [...] Go To The Location Of Their Choice, [id number] 07/30/2010 13:43:08 12/24/19 12 12/24/2011 lipid panel cholesterol, total 202 mg/dL (0-170 ) high Not Available [facility] (Centralized Electronic Ordering - All Locations) Patient Can Go To The Location Of Their Choice, [id number] 12/24/2011 17:17:28 12/24/19 12 12/24/2011 lipid panel triglyceride 106 mg/dL (0-100 ) high Not Available [facility] (Centralized Electronic Ordering - All Locations) Patient Can Go To The Location Of Their Choice, [id number] 12/24/2011 17:17:28 12/24/19 12 12/24/2011 lipid panel HDL chol 72 mg/dL (>40) Not Available [facility] (Centralized Electronic Ordering - All Locations) Patient Can Go To The Location Of Their Choice, [id number] 12/24/2011 17:17:28 12/24/19 12 12/24/2011 lipid panel LDL cholesterol, calculated 109 mg/dL (0-109 ) Not Available [facility] (Centralized Electronic Ordering - All Locations) Patient Can Go To The Location Of Their Choice, [id number] 12/24/2011 17:17:28 12/24/19 12 12/24/2011 lipid panel non HDL cholesterol (calc) 130 mg/dL (0-139 ) Not Available [facility] (Centralized Electronic Ordering - All Locations) Patient Can Go To The Location Of Their Choice, [id number] 12/24/2011 17:17:28 12/24/19 12 12/25/2011 chlam ydia/ GC DNA probe w/oco nfirm ation urine chlamydia amp probe NEGATI VE no chlam ydia trach omati s RNA detec lucy in this patie nt's sampl e. (refe rence range /norm al value : not detec lucy) Not Available [facility] (Centralized Electronic Ordering - All Locations) Patient Can Go To The Location Of Their Choice, [id number] 12/25/2011 13:40:15 12/24/1912/25/2011 chlam ydia/ GC DNA [...] Go To The Location Of Their Choice, [id number] 12/25/2011 13:40:15 08/12/19 15 08/04/2014 imagi ng/di agnos tic resul t No observ ation record ed. Not Available 2014 17:56:53 Result Notes None recorded. Problems Name Problem SNOMED Code Status Onset Date Resolution Date Notes Provider Name and Address Organization Details Recorded Time Acute pharyngiti s 195189767 Active Masha Corcoran MD [address] [place] [address], , [facility] 3 15:01:57 Streptococ bhavana sore throat 29165351 Active Yong Nuñez MD [address] [facility], [place], [address] , [facility] 3 09:46:17 Failure to thrive 53003678 Completed 12/22/2011 Not Available [facility] 3 03:01:18 Acute conjunctiv itis 35262741 Completed 12/22/2011 Not Available [facility] 3 03:01:18 Acute conjunctiv itis 00270437 Completed 200806/10/2009 Not Available [facility] 3 03:01:18 Adjustment disorder 94664174 Active Not Available [facility] 3 03:01:18 Dysfunctio nal uterine bleeding Active Not Available [facility] 3 03:01:18 Acute pharyngiti s 387081451 Completed 200806/10/2009 Not Available [facility] 3 03:01:18 Acute pharyngiti s 292723554 Completed 12/22/2011 Not Available [facility] 3 03:01:18 Backache 961267326 Active Not Available [facility] 3 03:01:18 Backache 175560796 Completed 200706/10/2009 Not Available [facility] 3 03:01:18 Viral disease 98719173 Completed 200806/10/2009 Not Available [facility] 3 03:01:18 Dysmenorrh ea 026304618 Active Not Available [facility] 3 03:01:18 Abnormal weight loss 423540060 Completed 200812/22/2011 Not Available [facility] 3 03:01:18 [...] Address Organization Details Last Updated DateTime 07/27/2010 50889.90975 g [facility] 07/27/2010 10:42:51 Date Recorded Body height Body weight Body mass index (BMI) Systolic blood pressure Diastolic blood pressure Provider Name and Address Organization Details Last Updated DateTime 12/05/2010 163.195 cm 44478.50 9694 g 18.1 kg/m2 114 mm[Hg] 58 mm[Hg] [facility] 1 12:49:01 Date Recorded Body height Body weight Body mass index (BMI) Systolic blood pressure Diastolic blood pressure Provider Name and Address Organization Details Last Updated DateTime 12/24/2011 163.195 cm 98234.72 3752 g 18.7 kg/m2 112 mm[Hg] 64 mm[Hg] [facility] 2 11:00:31 Date Recorded Body height Body weight Body mass index (BMI) Body temperature Systolic blood pressure Diastolic blood pressure Provider Name and Address Organization Details Last Updated DateTime 3 164.465 cm 55006.1 30691 g 18.2 kg/m2 99.4 [degF] 98 mm[Hg] 68 mm[Hg] Mary Mckinnon [facility] 3 14:47:24 Social History Question Answer Notes LastModified by Organizat ion Details LastModified Time Tobacco Smoking Status Never Smoker Alison Kelly null, [facility] 12/24/2011 11:00:31 Parent's Marital Status [...] ously record ed as Cancer ) [id number] Not available 08/03/2012 03:00:17 Paternal Grandfather Heart disease [email or web address] [id number] Not available 08/03/2012 03:00:17 Paternal Grandfather Hypercholest erolemia previo usly record ed as Elevat ed Choles terol [email or web address] [id number] Not available 08/03/2012 03:00:17 Medical History Condition [...] Hib, unspecified formulation 4 completed Not Available [facility] 12/29/2010 03:19:09 OPV 5 completed Not Available [facility] 12/29/2010 03:19:09 DTP 5 completed Not Available [facility] 12/29/2010 03:19:09 Hep B, adolescent or pediatric 5 completed Not Available [facility] 12/29/2010 03:19:09 DTP 4 completed Not Available [facility] 12/29/2010 03:19:09 DTP 4 completed Not Available [facility] 12/29/2010 03:19:09 Hep B, adolescent or pediatric 4 completed Not Available [facility] 12/29/2010 03:19:09 Hib, unspecified formulation 5 completed Not Available [facility] 12/29/2010 03:19:09 OPV 4 completed Not Available [facility] 12/29/2010 03:19:09 DTP 6 completed Not Available [facility] 12/29/2010 03:19:09 MMR 5 completed Not Available [facility] 12/29/2010 03:19:09 Hib, unspecified formulation 4 completed Not Available [facility] 12/29/2010 03:19:09 Hib, unspecified formulation 5 completed Not Available [facility] 12/29/2010 03:19:09 Hep B, adolescent or pediatric 4 completed Not Available [facility] 12/29/2010 03:19:09 IPV 8 completed Not Available [facility] 12/29/2010 03:19:09 DTaP 8 completed Not Available [facility] 12/29/2010 03:19:09 MMR 8 completed Not Available [facility] 12/29/2010 03:19:09 OPV 4 completed Not Available [facility] 12/29/2010 03:19:09 meningococcal ACWY, unspecified formulation 8 completed Not Available [facility] 12/29/2010 03:18:24 varicella 8 completed Not Available [facility] 12/29/2010 03:16:44 Tdap 7 completed Not Available [facility] 12/29/2010 03:16:44 Past Encounters Encounter ID Performer Location Encounter Start Date Encounter Closed Date Diagnosis/Indication Diagnosis SNOMED-CT Code Diagnosis ICD10 Code Diagnosis Note [id number] [facility] [address] [place] [address] 10/23/2006 14:53:53 10/23/2006 15:47:27 [id number] [facility] [address] [place] [address] 04/09/2007 13:59:43 04/09/2007 14:16:27 [id number] [facility] [address] [place] [address] 12/29/2007 11:02:01 11/03/2008 01:23:50 [id number] [facility] [address] [place] [address] 07/15/2008 10:58:05 07/15/2008 11:18:50 [id number] [facility] [address] [place] [address] 08/24/2008 15:24:10 08/24/2008 16:30:01 [id number] [facility] [address] [place] [address] 05/04/2009 13:23:27 05/04/2009 14:55:14 [id number] [facility] [address] [place] [address] 06/13/2009 15:17:36 06/13/2009 16:18:40 [id number] [facility] [address] [place] [address] 07/25/2009 10:43:02 07/25/2009 11:55:49 [id number] [facility] [address] [place] [address] 09/12/2009 16:35:16 09/12/2009 18:05:53 [id number] [facility] [address] [place] [address] 12/05/2009 13:10:13 12/05/2009 15:13:24 [id number] [facility] [address] [place] [address] 07/19/2010 15:21:05 07/19/2010 16:11:53 [id number] [facility] [address] [facility] [place] [address] 07/27/2010 10:11:05 07/27/2010 11:18:16 [id number] [facility] [address] [facility] [place] [address] 12/05/2010 12:37:09 12/05/2010 17:00:26 [id number] Masha Corcoran MD [facility] [address] [facility] [place] [address] 12/24/2011 10:22:14 12/24/2011 12:13:28 [id number] Mary Mckinnon [facility] [address] [facility] [place] [address] 03/09/2012 16:43:58 03/09/2012 17:28:38 [id number] Yong Nuñez MD [facility] [address] [place] [address] [place] [address] 01/20/2013 14:27:08 01/20/2013 15:37:10 Acute pharyngitis [id number] Health Concerns Section Related Observation LastModified by Organization Detai ls LastModified Time None Recorded Concern Status LastModified by Organization Details LastModified Time None Recorded Advance Directives Directive None Recorded Payers Encounter Date Sequence Insurance Name Policy Number Policy Ballard Covered Member ID Ballard Member ID Guarantor Name 07/27/2010 1 [place] [employer] [place] Yusuf Brooks [id number] Falguni Malirvin 12/05/2010 1 [place] Yusuf Brooks [id number] Falguni Maloni 12/24/2011 1 [place] Yusuf Brooks [id number] Falguni Malirvin 03/09/2012 1 [place] Yusuf Brooks [id number] Falguni Malirvin 03/09/2012 1 [facility] [id number] 23 Fidelina Brooks [id number] Falguni Maloni 01/20/2013 1 [facility] [id number] 23 Fidelina Brooks [id number] Falguni Brooks OBGyn Episode No OBEpisode recorded.
== END 2024-06-11 13:21 | disposition home or self-care (01) ==
LOC: HO.HMCFM 12:49
PROVIDERS: PCP Nurse Practitioner Family; Visit Provider Nurse Practitioner Family
DX: F90.2 Attention-deficit hyperactivity disorder, combined type (principal); F33.0 Major depressive disorder, recurrent, mild; F41.1 Generalized anxiety disorder; F63.3 Trichotillomania

== ENCOUNTER → 2024-06-11 12:48 | Outpatient (BNVA) | payer OTHER, SELFPAY | PROVIDERS: PCP Nurse Practitioner Family; Visit Provider Nurse Practitioner Family | DX: F90.2 Attention-deficit hyperactivity disorder, combined type (principal); F33.0 Major depressive disorder, recurrent, mild; F41.1 Generalized anxiety disorder; F63.3 Trichotillomania; I77.6 Arteritis, unspecified; T43.215A Adverse effect of selective serotonin and norepinephrine reuptake inhibitors, initial encounter | CPT/HCPCS: 96127 ==

== ENCOUNTER 2024-08-04 10:36 | Outpatient (AMB) | payer OTHER, SELFPAY ==
--- NOTE | 2024-08-04 10:39 | A.OFFPC_ITS ---
Vital Signs 08/04/24 10:42 Height 5 ft 5 in Weight 126 lb BMI 21.0 BP 99/68 Blood Pressure Location Rt brachial Position Sitting Respiration 12 Pulse 68 Pulse Source Pulse Oximeter Temp 97.6 F Temp Source Oral Pulse Oximetry (%) 95 Oxygen Delivery Method Room Air Intake Visit Reasons: 4-5 weeks 30 min med change Intake Note: Follow up to review meds Risk Specialist Required: No Allergies escitalopram [From Lexapro] Allergy (Severe, Verified 08/04/24 10:56) Rash lexapro Allergy (Intermediate, Uncoded 08/04/24 10:39) Rash Medication List - Last Reconciled 08/04/24 by Lela Mayer, PERSONAL CAREGIVER-BC acetylcysteine (bulk) ea miscellaneous buspirone 10 mg PO TID dextroamphetamine-amphetamine 10 mg (Adderall) 10 mg PO DIRECTED multivitamin 1 tab PO DAILY Tobacco use date assessed: 08/04/24 Dental Screening Dental Screen Date: 08/04/24 Did you have a dental visit in the last 12 months?: Yes Did you have a dental problem in the last 6 months where you did not have access to dental care?: No Was dental information given to patient?: Patient has dentist HPI HPI Comments History of Present Illness Details 28-year-old female with ANJELICA, MDD, ADHD, keratosis pilaris, facial acne, trichotilamania , Romi, due Dec 12, 2024 Here today for close iterim fu: Now fully off Pristiq Started taking buspar QD 4 weeks ago Cont to take Adderral Feeling better than she was previously Cont to have some random bruising; but overall skin is better now that off pristiq Now wonders if it was related to Pristiq as she cont to have bruising She felt really good on the pristiq and would like to restart it if she can She has not heard from [facility]; i reviewed the chart; pt states she called at least 3 times and the office did not f/u with her. This is confirmed w/ chart review I sent a message to [facility] Kaur to help asst States she has free Psych through work but wonders about this. Reviewed [facility] with her today; awaiting my registration. I sent an email to my contact today to take care of this. Has not been good about taking NAC Is taking MVI but not as good - Denies SI/HI. Physical Exam General: Well developed, well nourished, in no acute distress. Appears stated age. Head: Normocephalic, atraumatic. Eyes: Pupils are equal, round and reactive to light and accommodation. Conjunctivae are clear. Vision grossly normal. Lungs: Clear to auscultation bilaterally. No rales, rhonchi or wheeze noted. Good air flow in all seay. Heart: Regular rate and rhythm. No murmurs, click, rubs or gallops are noted. Psych: Mood and affect appropriate. Plan I have advised her to wait for [facility], as they have a good history from me on her If she does not hear from [facility], she will reach out to her employers group Cont Adderral as directed, no change. Refill sent. 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 COntract UTD. Pill count today. Increase Buspirone to at least twice per day and consider taking TID. RTO 3 months for routine fu, sooner PRN I will send portal message once [facility] is available Total time spent caring for the patient today was 40 minutes. This includes time spent before the visit reviewing the chart, time spent during the visit, and time spent after the visit on documentation, reviewing laboratory results, diagnostic imaging, medications, performing a medically necessary evaluation, counseling on diagnoses, care coordination, ordering appropriate tests, ordering appropriate medications, review of tests performed by other providers, reporting test results with the patient, communication with other healthcare providers. 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 1. Little interest or pleasure in doing things: not at all 2. Feeling down, depressed, or hopeless: not at all 3. Trouble falling or staying asleep, or sleeping too much: not at all 4. Feeling tired or having little energy: not at all 5. Poor appetite or overeating: not at all 6. Feeling bad about yourself - or that you are a failure or have let yourself or your family down: not at all 7. Trouble concentrating on things, such as reading the newspaper or watching television: not at all 8. Moving or speaking so slowly that other people could have noticed. Or the opposite - being so fidgety or restless that you have been moving around a lot more than usual: not at all Depression Screening Interpretation: Negative Depression Screening Done: Yes 87210 - PHQ-9 Billing: Yes Source: Developed by Drs. Toby Winters, Vicky Fuller, Tristian Bernal and colleagues, with an educational luba from [employer]. Thrive Questionnaire Date Thrive assessed: 08/04/24 I am a: Patient What is your living situation today?: I have a steady place to live Within the past 12 months, did the food you bought not last and you didn't have the money to get more?: Never true Within the past 12 months, did you worry whether your food would run out before you got money to buy more?: Never true Do you have trouble paying for medicines?: No Do you have trouble getting transportation to medical appointments?: No Do you have trouble paying your heating and electricity bill?: No Do you have trouble taking care of your child, family member or friend?: No Do you have trouble with day-to-day activities such as bathing, preparing meals, shopping, managing finances, etc.?: No Are you currently unemployed and looking for a job?: No Are you interested in more education?: No Please select the resources that you would like help with: None Currently or been in a relationship where the following occur: No concerns reported THRIVE Score: 0 ANJELICA-7 AMB Questionnaire ANJELICA-7 Date ANJELICA - 7 assessed: 08/04/24 Feeling nervous, anxious, or on edge: 0 = Not at all Not being able to stop or control worryin = Not at all Worrying too much about different things: 0 = Not at all Trouble relaxin = Not at all Being so restless that it is hard to sit still: 0 = Not at all Becoming easily annoyed or irritable: 0 = Not at all Feeling afraid as if something awful might happen: 0 = Not at all Total ANJELICA-7 score (0-4 normal; 5-9 mild; 10-14 moderate; 15-21 severe): 0 Source: Developed by Drs. Toby Winters, Vicky Fuller, Tristian Bernal and colleagues, with an educational luba from [employer]. ANJELICA-7 Assessment Billing ANJELICA-7 Assessment Tool: ANJELICA-7 Assessment 47270 Physical exam (Primary Care) Vital Signs: Last Vital Signs Temp 97.6 F 08/04/24 10:42 Pulse 68 08/04/24 10:42 Resp 12 08/04/24 10:42 BP 99/68 08/04/24 10:42 Pulse Ox 95 08/04/24 10:42 Oxygen Delivery Method Room Air 08/04/24 10:42 BMI result Body Mass Index 21.0 Tobacco/Smoking Status: Tobacco use Status Tobacco use date assessed 08/04/24 08/04/24 10:44 Patient Tobacco Use Status Never used Tobacco 08/04/24 10:44 e-Cigarette/Vaping Use Never Used 08/04/24 10:44 Depression Screening Interpretation: Negative Thrive Assessment: Date of Thrive Assessment Date Thrive assessed 08/04/24 08/04/24 10:44 Currently or been in a relationship where the following occur: No concerns reported Coding Level of Care Code Est Pt Level 5 (63827) Complex EM visit Add On G2211 Diagnoses Attention deficit hyperactivity disorder (ADHD), combined type F90.2 Attention deficit-hyperactivity disorder type: combined inattentive- hyperactive ANJELICA (generalized anxiety disorder) F41.1 Iron deficiency anemia due to chronic blood loss D50.0 Iron deficiency anemia type: chronic blood loss Mild episode of recurrent major depressive disorder F33.0 Major depression episode severity: mild Medication side effect T88.7XXA 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 Additional Codes ANJELICA-7 Assessment Billing - ANJELICA-7 Assessment Tool: ANJELICA-7 Assessment 87847 ([id number]) PHQ-9 - 78042 - PHQ-9 Billing: Yes ([id number]) Assessment & Plan Assessment & Plan (1) ADHD: Code(s): F90.9 - Attention-deficit hyperactivity disorder, unspecified type Category: Medical Qualifiers: Attention deficit-hyperactivity disorder type: combined inattentive- hyperactive Qualified Code(s): F90.2 - Attention-deficit hyperactivity disorder, combined type (2) ANJELICA (generalized anxiety disorder): Comment: in counseling Code(s): F41.1 - Generalized anxiety disorder Category: Medical (3) Iron deficiency anemia: Comment: cont Iron supplement Code(s): D50.9 - Iron deficiency anemia, unspecified Category: Medical Qualifiers: Iron deficiency anemia type: chronic blood loss Qualified Code(s): D50.0 - Iron deficiency anemia secondary to blood loss (chronic) (4) MDD (major depressive disorder), recurrent episode: Comment: in counseling Code(s): F33.9 - Major depressive disorder, recurrent, unspecified Category: Medical Qualifiers: Major depression episode severity: mild Qualified Code(s): F33.0 - Major depressive disorder, recurrent, mild (5) Medication side effect: Comment: pristiq- vasculitis Code(s): T88.7XXA - Unspecified adverse effect of drug or medicament, initial encounter Category: Medical (6) Trichotillomania: Code(s): F63.3 - Trichotillomania Category: Medical Plan . Medications: Refilled dextroamphetamine-amphetamine 10 mg (Adderall) Take 2 tabs in the morning (20mg) take additional 10 mg in the afternoon as needed for breakthrough sx; Max 30mg/day. 10 mg PO DIRECTED 90 tabs 0RF
[2024-08-04 10:42] VITALS: BP 99/68; PULSE 68; RESP 12; TEMP 36.4; O2SAT 95; BMI 21.0
--- OUTSIDE RECORDS SUMMARY | 2024-08-04 12:03 | XMS_ITS | Data Portability ---
Author Organization [place] - [facility], [facility] Address [address] [place] [id number] Assessment Encounter Date Assessment Date Assessment LastModified by Organization Details LastModified Time 07/27/2010 07/27/2010 14 yo female with Cassie Vaginitis - Diflucan liquid (5ml correct dose) today and repeat in 3 days, return next wk if still sxs, prevention; STD screening - urine only, pt cell [phone] only if abnl, CONFIDENTIAL; Dysmenorrhea/Dur ation 8 days - discussed briefly OCPs as possible Rx, will try Motrin liquid for cramps, may make f/u appt if wants to try OCP Not available 09/24/2010 02:09:57 12/05/2010 12/05/2010 Healthy 15 year old. Discussed family rules and importance of school. Discussed risk reduction including car safety. Multivit with Vit D. WCC in 1 year. Not available 12/05/2010 13:23:19 12/24/2011 12/24/2011 Healthy 16 year old. Discussed risk reduction including car [...] None recorded. Lab culture, throat 2012 013 [facility], [address] [place] [address], [id number], 3 15:01:58 rapid strep A 2012 013 [facility], [address] [place] [address], [phone], 3 15:01:58 chlamydia/G C amplified DNA PCR 2011 012 [facility] (Centralized Electronic Ordering - All Locations), Patient Can Go To The Location Of Their Choice, [id number] 3 03:17:26 lipid panel - FASTING 2011 012 [facility] (Centralized Electronic Ordering - All Locations), Patient Can Go To The Location Of Their Choice, [id number] 3 03:17:26 hemocue hemoglobin, POC 2010 011 [facility], [address] [place] [address], [id number], 3 03:10:57 chlamydia/G C amplified DNA PCR 2010 011 [facility] (Centralized Electronic Ordering - All Locations), Patient Can Go To The Location Of Their Choice, [id number] 3 03:08:34 Referral physical therapist referral 2011 012 [facility] Not available 3 03:17:26 gynecologis t referral 2011 012 [facility] Not available 3 03:17:26 Procedures None recorded. Surgeries None recorded. Imaging None recorded. Medication Orders Diflucan 40 mg/mL oral suspension 2012 013 [facility]armacy #[id number], [address] [facility], [place], [address], 3 14:44:48 Diflucan 40 mg/mL oral suspension [address] [facility]/Pharmacy #[id number], [address] [place], [address], 3 03:08:34 Patient TargetsNo targets recorded. Patient Instructions Encounter Date Encounter Id Patient Instructions Last Modified By Organization Details Last Modified Time 01/20/2013 [id number] likely viral dave l r/o strep-will r/o strep-sx care-f/u not better in 3 days-sooner prn Not available 01/20/2013 15:01:57 Reason for Referral Referring Physician: Masha Corcoran, Pediatric Medicine, Encounter Date: 12/24/2011 Referring Physician: Masha Corcoran, Pediatric Medicine, Encounter Date: 12/24/2011 Results Created Date Observation Date Name Description Value Unit Range Abnormal Flag Note LastModifiedBy Organization Detail LastModifiedTime 01/21/20 13 01/20/2013 rapid strep A Rapid Strep negati ve Not Available [facility] [address] [place] [address], [phone], 01/20/2013 14:38:37 01/21/20 13 01/20/2013 cultu re, throa t Result 24 HR positi ve Not Available [facility] [address] [place] [address], [id number], 01/20/2013 14:38:37 01/21/20 13 01/20/2013 cultu re, throa t Result 48 HR positi ve Not Available [facility] [address] [place] [address], [id number], 01/20/2013 14:38:37 12/06/19 11 12/05/2010 hemoc ue hemog lobin , POC Hemoglobin 13.7 Not Available [facility] [address] [place] [address], [address], 12/05/2010 13:29:06 07/20/19 11 07/19/2010 rapid strep A Rapid Strep negati ve Not Available [facility] [address] [place] [address], [id number], 07/19/2010 15:52:25 07/20/19 11 07/19/2010 cultu re, throa t Result 24 HR negati ve Not Available [facility] [address] [place] [address], [id number], 07/19/2010 15:52:25 07/20/19 11 07/19/2010 cultu re, throa t Result 48 HR negati ve Not Available [facility] [address] [place] [address], [address], 07/19/2010 15:52:25 07/28/19 11 07/30/2010 chlam ydia/ GC DNA probe w/oco nfirm ation urine chlamydia amp probe NEGATI VE no chlam ydia trach omati s RNA detec lucy in this patie nt's sampl e. (refe rence range /norm al value : not detec lucy) Not Available [facility] (Centralized Electronic Ordering - All Locations) Patient Can Go To The Location Of Their Choice, [id number] 07/30/2010 13:43:08 07/28/19 11 07/30/2010 chlam ydia/ [...] Go To The Location Of Their Choice, [id number] 07/30/2010 13:43:08 12/24/19 12 12/24/2011 lipid panel cholesterol, total 202 mg/dL (0-170 ) high Not Available [facility] (Centralized Electronic Ordering - All Locations) Patient Can Go To The Location Of Their Choice, [id number] 12/24/2011 17:17:28 12/24/19 12 12/24/2011 lipid panel triglyceride 106 mg/dL (0-100 ) high Not Available [facility] (Centralized Electronic Ordering - All Locations) Patient Can Go To The Location Of Their Choice, [id number] 12/24/2011 17:17:28 12/24/19 12 12/24/2011 lipid panel HDL chol 72 mg/dL (>40) Not Available [facility] (Centralized Electronic Ordering - All Locations) Patient Can Go To The Location Of Their Choice, [id number] 12/24/2011 17:17:28 12/24/19 12 12/24/2011 lipid panel LDL cholesterol, calculated 109 mg/dL (0-109 ) Not Available [facility] (Centralized Electronic Ordering - All Locations) Patient Can Go To The Location Of Their Choice, [id number] 12/24/2011 17:17:28 12/24/19 12 12/24/2011 lipid panel non HDL cholesterol (calc) 130 mg/dL (0-139 ) Not Available [facility] (Centralized Electronic Ordering - All Locations) Patient Can Go To The Location Of Their Choice, [id number] 12/24/2011 17:17:28 12/24/19 12 12/25/2011 chlam ydia/ GC DNA probe w/oco nfirm ation urine chlamydia amp probe NEGATI VE no chlam ydia trach omati s RNA detec lucy in this patie nt's sampl e. (refe rence range /norm al value : not detec lucy) Not Available [facility] (Centralized Electronic Ordering - All Locations) Patient Can Go To The Location Of Their Choice, [id number] 12/25/2011 13:40:15 12/24/19 12 12/25/2011 chlam ydia/ GC DNA [...] Go To The Location Of Their Choice, [facility] 12/25/2011 13:40:15 08/12/19 15 08/04/2014 imagi ng/di agnos tic resul t No observ ation record ed. Not Available 2014 17:56:53 Result Notes None recorded. Problems Name Problem SNOMED Code Status Onset Date Resolution Date Notes Provider Name and Address Organization Details Recorded Time Acute pharyngiti s 489017679 Active Masha Corcoran MD [address] [place] [address], , [facility] 3 15:01:57 Streptococ bhavana sore throat 66509699 Active Yong Nuñez MD [address] [facility], [place], [address] , [facility] 3 09:46:17 Failure to thrive 10698973 Completed 12/22/2011 Not Available [facility] 3 03:01:18 Acute conjunctiv itis 94374242 Completed 12/22/2011 Not Available [facility] 3 03:01:18 Acute conjunctiv itis 43914571 Completed 200806/10/2009 Not Available [facility] 3 03:01:18 Adjustment disorder 72182540 Active Not Available [facility] 3 03:01:18 Dysfunctio nal uterine bleeding Active Not Available [facility] 3 03:01:18 Acute pharyngiti s 365359772 Completed 200806/10/2009 Not Available [facility] 3 03:01:18 Acute pharyngiti s 713519003 Completed 12/22/2011 Not Available [facility] 3 03:01:18 Backache 770777771 Active Not Available [facility] 3 03:01:18 Backache 141032606 Completed 200706/10/2009 Not Available [facility] 3 03:01:18 Viral disease 43452658 Completed 200806/10/2009 Not Available [facility] 3 03:01:18 Dysmenorrh ea 369066581 Active Not Available [facility] 3 03:01:18 Abnormal weight loss 918248311 Completed 200812/22/2011 Not Available [facility] 3 03:01:18 Vaginitis and vulvovagin itis Active Not Available [facility] 3 03:01:18 Vaginitis and vulvovagin itis Completed 12/22/2011 Not Available [facility] 3 03:01:18 Notes: Problem Notes None recorded. Medical Equipment None Reported. [...] Address Organization Details Last Updated DateTime 07/27/2010 79132.83067 g Lenora Mar [facility] 07/27/2010 10:42:51 Date Recorded Body height Body weight Body mass index (BMI) Systolic blood pressure Diastolic blood pressure Provider Name and Address Organization Details Last Updated DateTime 12/05/2010 163.195 cm 73429.50 9694 g 18.1 kg/m2 114 mm[Hg] 58 mm[Hg] [facility] 1 12:49:01 Date Recorded Body height Body weight Body mass index (BMI) Systolic blood pressure Diastolic blood pressure Provider Name and Address Organization Details Last Updated DateTime 12/24/2011 163.195 cm 12062.72 3752 g 18.7 kg/m2 112 mm[Hg] 64 mm[Hg] Alison [facility] 2 11:00:31 Date Recorded Body height Body weight Body mass index (BMI) Body temperature Systolic blood pressure Diastolic blood pressure Provider Name and Address Organization Details Last Updated DateTime 3 164.465 cm 56809.1 76702 g 18.2 kg/m2 99.4 [degF] 98 mm[Hg] 68 mm[Hg] Mary Mckinnon [facility] 3 14:47:24 Social History Question Answer Notes LastModified by Organizat ion Details LastModified Time Tobacco Smoking Status Never Smoker Alison [facility], [facility] 12/24/2011 11:00:31 Parent's Marital Status --but Live Together- difficult At Home Information not available 12/29/2010 Home Situation Both Parents radhames hawthorne not available 12/24/2011 Siblings Loreta (Jose) 06/06/01 Information not available 12/29/2010 Parent's Name Fidelina [email or web address] Information not available 12/29/2010 Parent's Name Yusuf [email or web address] Information not available 12/29/2010 Are You Passively Exposed To Smoke? No nasselin Information not available 01/20/2013 Sex: Unknown Functional Status None recorded. Mental Status None recorded. Family History Relationship Description Onset Age of this Age Resolved Age Notes LastModified by Organization Details LastModified Time Maternal Grandmother Malignant neoplastic disease cervic al (previ ously record ed as Cancer ) [id number] [id number] Not available 08/03/2012 03:00:17 Paternal Grandfather Heart disease [email or web address] [id number] Not available 08/03/2012 03:00:17 Paternal Grandfather Hypercholest erolemia previo usly record ed as Elevat ed Choles terol [id number] [id number] Not available 08/03/2012 03:00:17 Medical History Condition Response OTHER Y ENDOCRINE PROBLEMS/DIABETES Y PSYCH PROBLEMS Y Gynecological History Statement/Question Response Age at onset of periods 09/01 Obstetrics History GPAL:G 0 P 0 0 0 0 Immunizations Vaccine Type Date Status Note Provider Nam e and Address Organization Details Recorded Time varicella 7 completed Not Available [facility] 12/29/2010 03:18:24 meningococcal MCV4P 2 completed Not Available [facility] 03/13/2019 02:33:31 Hib, unspecified formulation 4 completed Not Available [facility] 12/29/2010 03:19:09 OPV 5 completed Not Available [facility] 12/29/2010 03:19:09 DTP 5 completed Not Available [facility] 12/29/2010 03:19:09 Hep B, adolescent or pediatric 5 completed Not Available [facility] 12/29/2010 03:19:09 DTP 4 completed Not Available [facility] 12/29/2010 03:19:09 DTP 4 completed Not Available [facility] 12/29/2010 03:19:09 Hep B, adolescent or pediatric 4 completed Not Available [facility] 12/29/2010 03:19:09 Hib, unspecified formulation 5 completed Not Available [facility] 12/29/2010 03:19:09 OPV 4 completed Not Available [facility] 12/29/2010 03:19:09 DTP 6 completed Not Available [facility] 12/29/2010 03:19:09 MMR 5 completed Not Available [facility] 12/29/2010 03:19:09 Hib, unspecified formulation 4 completed Not Available [facility] 12/29/2010 03:19:09 Hib, unspecified formulation 5 completed Not Available [facility] 12/29/2010 03:19:09 Hep B, adolescent or pediatric 4 completed Not Available [facility] 12/29/2010 03:19:09 IPV 8 completed Not Available [facility] 12/29/2010 03:19:09 DTaP 8 completed Not Available [facility] 12/29/2010 03:19:09 MMR 8 completed Not Available [facility] 12/29/2010 03:19:09 OPV 4 completed Not Available [facility] 12/29/2010 03:19:09 meningococcal ACWY, unspecified formulation 8 completed Not Available [facility] 12/29/2010 03:18:24 varicella 8 completed Not Available [facility] 12/29/2010 03:16:44 Tdap 7 completed Not Available [facility] 12/29/2010 03:16:44 Past Encounters Encounter ID Performer Location Encounter Start Date Encounter Closed Date Diagnosis/Indication Diagnosis SNOMED-CT Code Diagnosis ICD10 Code Diagnosis Note [id number] Sirisha Esteban MD [facility] [address] [place] [address] 10/23/2006 14:53:53 10/23/2006 15:47:27 [id number] Jean Claude Santillan MD [facility] [place] [address] [place] [address] 04/09/2007 13:59:43 04/09/2007 14:16:27 [id number] Masha Corcoran MD [facility] [place] [address] [place] [address] 12/29/2007 11:02:01 11/03/2008 01:23:50 [id number] Sirisha Esteban MD [facility] [place] [address] [place] [address] 07/15/2008 10:58:05 07/15/2008 11:18:50 [id number] Masha Corcoran MD [facility] [place] [address] [place] [address] 08/24/2008 15:24:10 08/24/2008 16:30:01 [id number] Masha Corcoran MD [facility] [place] [address] [place] [address] 05/04/2009 13:23:27 05/04/2009 14:55:14 [id number] Masha Corcoran MD [facility] [place] [address] [place] [address] 06/13/2009 15:17:36 06/13/2009 16:18:40 [id number] Masha Corcoran MD [facility] [place] [address] [place] [address] 07/25/2009 10:43:02 07/25/2009 11:55:49 [id number] Masha Corcoran MD [facility] [address] [place] [address] 09/12/2009 16:35:16 09/12/2009 18:05:53 [id number] Masha Corcoran MD [facility] [place] [address] [place] [address] 12/05/2009 13:10:13 12/05/2009 15:13:24 [id number] Stephanie Sharp MD [facility] [place] [address] [place] [address] 07/19/2010 15:21:05 07/19/2010 16:11:53 [id number] Josefina Parkinson MD [facility] [place] [address] [facility] [place] [address] 07/27/2010 10:11:05 07/27/2010 11:18:16 [id number] Masha Corcoran MD [facility] [place] [address] [facility] [place] [address] 12/05/2010 12:37:09 12/05/2010 17:00:26 [id number] Masha Corcoran MD [facility] [place] [address] [facility] [place] [address] 12/24/2011 10:22:14 12/24/2011 12:13:28 [id number] Josefina Parkinson MD [facility] [place] [address] [facility] [place] [address] 03/09/2012 16:43:58 03/09/2012 17:28:38 [id number] Masha Corcoran MD [facility] [place] [address] [facility] [place] [address] 01/20/2013 14:27:08 01/20/2013 15:37:10 Acute pharyngitis [id number] Health Concerns Section Related Observation LastModified by Organization Detai ls LastModified Time None Recorded Concern Status LastModified by Organization Details LastModified Time None Recorded Advance Directives Directive None Recorded Payers Encounter Date Sequence Insurance Name Policy Number Policy Ballard Covered Member ID Ballard Member ID Guarantor Name 07/27/2010 1 [facility] [employer] Yusuf Brooks [id number] Falguni Malirvin 12/05/2010 1 [employer] Yusuf Brooks [id number] Falguni Malirvin 12/24/2011 1 [facility] [employer] Yusuf Brooks [id number] Falguni Malirvin 03/09/2012 1 [facility] [employer] Yusuf Brooks [id number] Falguni Malirvin 03/09/2012 1 [facility] ([facility] [id number] Fidelina Brooks [id number] Falguni Malirvin 01/20/[address] [place] [address] ([facility]) [id number] Fidelina Brooks [id number] Falguni Gonzalez Episode No OBEpisode recorded.
== END 2024-08-04 11:19 | disposition home or self-care (01) ==
LOC: HO.HMCFM 10:37
PROVIDERS: PCP Nurse Practitioner Family; Visit Provider Nurse Practitioner Family
DX: F90.2 Attention-deficit hyperactivity disorder, combined type (principal); F41.1 Generalized anxiety disorder; D50.0 Iron deficiency anemia secondary to blood loss (chronic); F33.0 Major depressive disorder, recurrent, mild; T88.7XXA Unspecified adverse effect of drug or medicament, initial encounter; F63.3 Trichotillomania

== ENCOUNTER → 2024-08-04 10:36 | Outpatient (BNVA) | payer OTHER, SELFPAY | PROVIDERS: Visit Provider Nurse Practitioner Family | DX: F41.1 Generalized anxiety disorder (principal); F90.9 Attention-deficit hyperactivity disorder, unspecified type; L70.9 Acne, unspecified; F90.2 Attention-deficit hyperactivity disorder, combined type; D50.0 Iron deficiency anemia secondary to blood loss (chronic); F33.0 Major depressive disorder, recurrent, mild; F63.3 Trichotillomania | CPT/HCPCS: 96127 ==

== ENCOUNTER 2024-08-11 16:12 | Outpatient (AMB) | payer OTHER, SELFPAY ==
--- NOTE | 2024-08-11 17:44 | MHC.OFFVISPS ---
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 Works on ADHD, Depression, Anxiety. Reports being very sensitive to medications or being unresponsive to meds. Trialed Pristiq-with benefit- developed salami skin brusing . PCP tapered and informed pt SNRI's would not be a class she could utilize. Anxious with taper. Buspar trial initiated ~1 month. No negative SE, however not managing sx Identifies target sx: getting through the day (works at home 2 days per week), needs to rest, struggles with work, anger, amotivation, negative, poor stress mgt, some insomnia, feels negative. It is hard to do the basics Pristiq helped with the ADHD . Stressors: is 22 weeks , home has sold, moving in 2 weeks, loss of grandfather Feb 2024, issues with their dog and day to day stress Past Psychiatric History: IP: Denies OP: Denies- PCP for meds Trials: Pristiq, Sertraline, Lexapro, Desipramine, Wellbutrin, Strattera, Prozac, Pt per PCP is not to be trialed on any SNRI meds (Venlafaxine, Duloxetine) Denies perceptual alterations, affirms sensory sx, denies sx of tere, hypomania SI- Denies SA-Denies hx PCP planning to to [facility] with pt Subjective Subjective Subjective Medication Compliance: Yes Side effects from medications: No Review of Systems Medical Review of Systems: unchanged Review of Systems Review of Systems Denies Mental Status Exam Mental Status Exam Patient Appearance: Appropriate Patient Orientation: Person, Place, Time and Situation Level of Consciousness: Alert Patient Behavior: Talkative Mood Description: Depressed Affect Description: Flat Patient Cognition Impaired: No Ability to Follow Directions: Excellent Speech Pattern: Spontaneous Speech Memory Description: Intact Hallucinations: None Delusions: Not Present Thought Process: Intact and Rumination Thought Content: positive for Intact and positive for Suicidal Ideation (denies) Depressive Symptoms: Increased Anxiety and Unhappiness Judgement: Good Assessment and Plan Assessment & Plan (1) ADHD: Status: Acute Qualifiers: Attention deficit-hyperactivity disorder type: combined inattentive-hyperactive Qualified Code(s): F90.2 - Attention-deficit hyperactivity disorder, combined type Code(s): F90.9 - Attention-deficit hyperactivity disorder, unspecified type (2) MDD (major depressive disorder), recurrent episode: Status: Acute Qualifiers: Major depression episode severity: mild Qualified Code(s): F33.0 - Major depressive disorder, recurrent, mild Code(s): F33.9 - Major depressive disorder, recurrent, unspecified (3) ANJELICA (generalized anxiety disorder): Status: Acute Code(s): F41.1 - Generalized anxiety disorder Plan Recurrent Major Depression, ANJELICA, ADHD. Plan: Retrial of fluoxetine 2.5 mg daily (liquid). Will call pt on 08/19 to check in on dosing, SE Medications: New fluoxetine 2.5 mg (0.625 mL) PO DAILY 120 mL 0RF Counseling and coordination of Care Medication management counseling: Effectiveness, Side effects, Dosing range and Duration Details: I spent [] minutes reviewing the record, seeing the patient and documenting in the medical record. Counseling provided to the patient/caregiver as outlined below. Addressed patient/caregiver concerns regarding current medication regime including effective adherence. Addressed patient/caregiver concerns regarding diagnosis and prognosis including accuracy of diagnosis, prognosis over time, impact of diagnosis. Addressed patient/caregiver concerns regarding impact of recent stressors. 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 Reports is offers relaxation effect Alcohol- on occasion Coding Level of Care Code New Pt Level 3 (29027) Diagnoses Attention deficit hyperactivity disorder (ADHD), combined type F90.2 Attention deficit-hyperactivity disorder type: combined inattentive-hyperactive Mild episode of recurrent major depressive disorder F33.0 Major depression episode severity: mild ANJELICA (generalized anxiety disorder) F41.1
--- OUTSIDE RECORDS SUMMARY | 2024-08-11 18:06 | XMS_ITS | Clinical Summary ---
Author Organization [facility] lin Address [address] [place] [address] Care Team Providers Care Tig Welder Name Role Phone Unavailable Primary Care Provider Unavailabl e Social History Tobacco Use Types Packs/Day Years Used Date Smoking Tobacco: Never Assessed Comments Unknown Sex and Gender Information Value Date Recorded Sex Assigned at Not on file Legal Sex Female 5:31 PM EDT Gender Identity Not on file Sexual Orientation Not on file Plan of Treatment Health Maintenance Due Date Last Done Comments Depression: Screening Annual ly using PHQ-2/9 in Adults 18 yrs or above (or HM Modifier)([facility]) 09/22/2011 Hepatitis C Virus Infection in Adolescents and Adults: Screening (or Modifier) ([facility]) 09/22/2011 SDMD Screening Reminder: Demi ually for all adults ([facility]) 09/22/2011 Tobacco Smoking Cessation: i n Adults excluding Women: Behavioral and Pharmacotherapy Interventions ([facility]) 09/22/2011 DTaP/Tdap/Td Vaccines ([facility]) (1 - Tdap) 2012 Cervical Cancer Screenin 1-65 yrs of age (or Modifier) 2014 Cervical Cancer Screening: P ap every 3 yrs pts age 21-65 2014 Cervical Cancer: Pap Screeni ng with Modifier timing ([facility]) 2014 Cervical Cancer: hrHPV alone or with cotesting Pap for Pts 30-65yrs screening every 5yrs ([facility]) 2014 COVID-19 Vaccine Screening: Initial Series and Booster Status ([facility]) ( - 2023- season) 2023 Flu Vaccination: Yearly for ages 18mos through 64 years (or Modifier)([facility]) 09/24/2024 Zoster/Shingles Vaccine Seri es Screening: Adults aged 18+ yrs (or HM Modifiers)([facility]) (1 of 2) 09/22/2043 Pneumococcal Vaccination Scr eening: Pts 0-19 & 19-49 yrs of age ([facility]) Aged Out No longer eligible based on patient's age to complete this topic Medical Devices Not on file [place] [address] PLAN
== END 2024-08-11 17:23 | disposition home or self-care (01) ==
LOC: HO.HOP 16:12
PROVIDERS: PCP Nurse Practitioner Family; Visit Provider Clinical Nurse Specialist Psychiatric/Mental Health, Adult
DX: F90.2 Attention-deficit hyperactivity disorder, combined type (principal); F33.0 Major depressive disorder, recurrent, mild; F41.1 Generalized anxiety disorder
CPT/HCPCS: 99203

== ENCOUNTER → 2024-08-11 16:12 | Outpatient (BNVA) | payer OTHER, SELFPAY | PROVIDERS: PCP Nurse Practitioner Family; Visit Provider Clinical Nurse Specialist Psychiatric/Mental Health, Adult ==

== ENCOUNTER 2024-11-11 11:38 | Outpatient (AMB) | payer OTHER, SELFPAY ==
--- NOTE | 2024-11-11 11:41 | A.OFFPC_ITS ---
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 Allergies escitalopram (From Lexapro) Allergy (Severe, Verified 11/11/24 11:50) Rash lexapro Allergy (Intermediate, Uncoded 11/11/24 11:42) Rash Medication List - Last Reconciled 11/11/24 by Lela Mayer, DELANEY-BC acetylcysteine (bulk) ea miscellaneous buspirone 10 mg PO TID dextroamphetamine-amphetamine 10 mg (Adderall) 10 mg PO DIRECTED fluoxetine 7.5 mg (1.875 mL) PO DAILY multivitamin 1 tab PO DAILY Tobacco use date assessed: 11/11/24 Dental Screening Dental Screen Date: 11/11/24 Did you have a dental visit in the last 12 months?: Yes Did you have a dental problem in the last 6 months where you did not have access to dental care?: No Was dental information given to patient?: Patient has dentist HPI HPI Comments History of Present Illness Details 29-year-old female with ANJELICA, MDD, ADHD, keratosis pilaris, facial acne, trichotilamania , Romi, due Dec 12, 2024 History of Present Illness The patient is a 29 year old female presenting with follow-up on anxiety and ADHD management. Generalized Anxiety Disorder: - Fluoxetine ineffective despite dose in crease. - Insomnia occurred with nighttime dosin g. - Prefers restarting desvenlafaxine. Fel t so good on this. - Anxiety impacts routine tasks and anti cipates stress with of dtr Nov. - Taking buspar QD. Little effect. - Needs to redo GeneSight;has at home. Attention-Deficit/Hyperactivity Disorder (ADHD): - Not Managed with Adderall alone - Noted past improvement with desvenlafa xine. Insomnia (secondary to medication use): - Occurred with nighttime fluoxetine. - Sleep improved with midday dosing. - Stopped taking prozac 3 weeks ago. Skin changes (potentially drug-related, resembling vasculitis): - Bruising and discoloration possibly li nked to past desvenlafaxine occurs w/o this med; no better or worse.. - Occurs with standing or specific postu re. Due for Flu shot. Rec'd Tdap 01/14/24 in anticipation of of dtr. Review of Systems - Psychiatric: Reports anxiety, limited ability to complete tasks. - Neurologic: Denies new neurological sy mptoms. - Sleep: Reports insomnia related to flu oxetine use. - Skin: Reports bruising and discolorati on, potentially related to medication. - Endocrine (pertaining to partner): Doug santacruz reports gestational diabetes controlled by diet. Physical Exam General: Well developed, well nourished, in no acute distress. Appears stated age. Head: Normocephalic, atraumatic. Eyes: Pupils are equal, round and reactive to light and accommodation. Conjunctivae are clear. Vision grossly normal. Lungs: Clear to auscultation bilaterally. No rales, rhonchi or wheeze noted. Good air flow in all seay. Heart: Regular rate and rhythm. No murmurs, click, rubs or gallops are noted. Psych: Mood and affect appropriate. Discussion Notes After discussing the patient's history with fluoxetine and the noted side effects, I recommend restarting desvenlafaxine as it previously provided significant benefit for managing both anxiety and ADHD symptoms. We discussed the need to complete the GeneSight testing to understand her metabolism of psychiatric medications for future management considerations. The patient will restart desvenlafaxine at 25 mg daily and adjust timing with Adderall intake to minimize potential interaction effects (she felt best when taking Adderral about 1-2 hours after Pristiq). She will hold off on buspirone unless anxiety symptoms become unmanageable while desvenlafaxine takes effect, which typically occurs over several weeks. We also reviewed anticipatory guidance for the delivery of her partner's baby next month and the related stressors. I encouraged the patient to complete the GeneSight test to refine her pharmacological treatment plan. A follow-up is scheduled for 6 weeks to reassess medication tolerability and symptom management. Patient was given time to ask questions. All questions were answered to their satisfaction. Assessment and Plan 1. Generalized Anxiety Disorder - Restart desvenlafaxine 25 mg daily. Ti trate to effect - Complete GeneSight test. - DC prozac; prn buspar 2. Attention-Deficit/Hyperactivity Disor luzmaria (ADHD) - Continue Adderall, monitor effects wit h desvenlafaxine. - Pill count done today and WNL. 3. Insomnia (secondary to medication use ) - Fluoxetine discontinued. - Monitor for insomnia with new regimen. 4. Skin changes (potentially drug-relate d) - Monitor changes; consider dermatology if persistent. 5 Immunization counseling: Flu admin tod ay. Patient Instructions - Restart desvenlafaxine 25 mg every mor marley. - Continue Adderall as directed, but libia e separately from desvenlafaxine. - Complete GeneSight test as soon as pos sible. - Monitor for any new or worsening sympt oms. - If anxiety becomes severe, consider re suming buspirone temporarily. - Telehealth visit in 6 weeks to f/u. So gita as needed. Consent I obtained the patient's consent to restart desvenlafaxine after discussing its prior benefits and the possible risks of side effects such as skin changes. We reviewed her need for GeneSight testing to determine metabolic responsiveness to psychiatric medications, which may alter dosing and medication choices. The patient expressed understanding and agreement with the plan, acknowledging the continuation of current ADHD treatment and was receptive to monitoring and follow-up care. Patient was informed and verbally consented to the use of an ambient scribe for clinic note documentation during this visit. Total time spent caring for the patient today was 41 minutes. This includes time spent before the visit reviewing the chart, time spent during the visit, and time spent after the visit on documentation, reviewing laboratory results, diagnostic imaging, medications, performing a medically necessary evaluation, counseling on diagnoses, care coordination, ordering appropriate tests, ordering appropriate medications, review of tests performed by other providers, reporting test results with the patient, communication with other healthcare providers. 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 1. Little interest or pleasure in doing things: not at all 2. Feeling down, depressed, or hopeless: not at all 3. Trouble falling or staying asleep, or sleeping too much: not at all 4. Feeling tired or having little energy: not at all 5. Poor appetite or overeating: not at all 6. Feeling bad about yourself - or that you are a failure or have let yourself or your family down: not at all 7. Trouble concentrating on things, such as reading the newspaper or watching television: not at all 8. Moving or speaking so slowly that other people could have noticed. Or the opposite - being so fidgety or restless that you have been moving around a lot more than usual: not at all 9. Thoughts that you would be better off or of hurting yourself in some way: not at all Total score: 0 Depression Screening Interpretation: Negative Depression Screening Done: Yes 71816 - PHQ-9 Billing: Yes Source: Developed by Drs. Toby Winters, Vicky Fuller, Tristian Bernal and colleagues, with an educational luba from [employer]. Thrive Questionnaire Date Thrive assessed: 11/11/24 I am a: Patient What is your living situation today?: I have a steady place to live Within the past 12 months, did the food you bought not last and you didn't have the money to get more?: Never true Within the past 12 months, did you worry whether your food would run out before you got money to buy more?: Never true Do you have trouble paying for medicines?: No Do you have trouble getting transportation to medical appointments?: No Do you have trouble paying your heating and electricity bill?: No Do you have trouble taking care of your child, family member or friend?: No Do you have trouble with day-to-day activities such as bathing, preparing meals, shopping, managing finances, etc.?: No Are you currently unemployed and looking for a job?: No Are you interested in more education?: No Please select the resources that you would like help with: None Currently or been in a relationship where the following occur: No concerns reported THRIVE Score: 0 ANJELICA-7 AMB Questionnaire ANJELICA-7 Date ANJELICA - 7 assessed: 11/11/24 Feeling nervous, anxious, or on edge: 0 = Not at all Not being able to stop or control worryin = Not at all Worrying too much about different things: 0 = Not at all Trouble relaxin = Not at all Being so restless that it is hard to sit still: 0 = Not at all Becoming easily annoyed or irritable: 0 = Not at all Feeling afraid as if something awful might happen: 0 = Not at all Total ANJELICA-7 score (0-4 normal; 5-9 mild; 10-14 moderate; 15-21 severe): 0 Source: Developed by Drs. Toby Winters, Vicky Fuller, Tristian Bernal and colleagues, with an educational luba from [employer]. ANJELICA-7 Assessment Billing ANJELICA-7 Assessment Tool: ANJELICA-7 Assessment 43912 Physical exam (Primary Care) Vital Signs: Last Vital Signs Temp 97.2 F 11/11/24 11:44 Pulse 80 11/11/24 11:44 Resp 12 11/11/24 11:44 BP 118/68 11/11/24 11:44 Pulse Ox 95 11/11/24 11:44 Oxygen Delivery Method Room Air 11/11/24 11:44 BMI result Body Mass Index 20.5 Tobacco/Smoking Status: Tobacco use Status Tobacco use date assessed 11/11/24 11/11/24 11:46 Patient Tobacco Use Status Never used Tobacco 11/11/24 11:46 e-Cigarette/Vaping Use Never Used 11/11/24 11:46 PHQ-9: PHQ-9 Score PHQ-9: Total score 0 11/11/24 11:46 Depression Screening Interpretation: Negative Thrive Assessment: Date of Thrive Assessment Date Thrive assessed 11/11/24 11/11/24 11:46 Currently or been in a relationship where the following occur: No concerns reported Office Procedures AMB Patient Education/Training AMB Patient Education/Training Documentation: [id number] Separately and distinctly, 8 minutes face to face counseling on risk factor red uction related to diet, exercise, weight management, sexual health, immunization, injury prevention. Medical necessity includes review of VS, BMI, current medications, age/race/gender to identify risks. Patient was provided with a wellness handout at the time of discharge. 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 Additional Codes ANJELICA-7 Assessment Billing - ANJELICA-7 Assessment Tool: ANJELICA-7 Assessment [id number] ([id number]) PHQ-9 - 15714 - PHQ-9 Billing: Yes ([id number]) Assessment & Plan Assessment & Plan (1) ADHD: Code(s): F90.9 - Attention-deficit hyperactivity disorder, unspecified type Category: Medical Qualifiers: Attention deficit-hyperactivity disorder type: combined inattentive- hyperactive Qualified Code(s): F90.2 - Attention-deficit hyperactivity disorder, combined type (2) MDD (major depressive disorder), recurrent episode: Comment: in counseling Code(s): F33.9 - Major depressive disorder, recurrent, unspecified Category: Medical Qualifiers: Major depression episode severity: mild Qualified Code(s): F33.0 - Major depressive disorder, recurrent, mild (3) ANJELICA (generalized anxiety disorder): Comment: in counseling Code(s): F41.1 - Generalized anxiety disorder Category: Medical (4) Trichotillomania: Code(s): 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
[2024-11-11 11:44] VITALS: BP 118/68; PULSE 80; RESP 12; TEMP 36.2; O2SAT 95; BMI 20.5
--- OUTSIDE RECORDS SUMMARY | 2024-11-11 13:58 | XMS_ITS | Clinical Summary ---
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 Overview (04/15/2014): Vulvodynia Social History Tobacco Use Types Packs/Day Years Used Date Smoking Tobacco: Never Comments Unknown Sex and Gender Information Value Date Recorded Sex Assigned at Not on file Legal Sex Female 3:08 PM EST Gender Identity Not on file Sexual Orientation Not on file Last Filed Vital Signs Vital Sign Reading Time Taken Comments Blood Pressure 110/60 01/25/2014 2:01 PM EST Pulse - - Temperature - - Respiratory Rate - - Oxygen Saturation - - Inhaled Oxygen Concentration - - Weight 49.9 kg (110 lb) 01/25/2014 2:01 PM EST Height 166 cm (5' 5.35 ) 01/25/2014 2:01 PM EST Body Mass Index 18.11 01/25/2014 2:01 PM EST Plan of Treatment Not on file Medical Devices Not on file Insurance [facility] PPO PPO PPO PPO PPO PPO PPO PPO PPO Care Teams Slabber Light Relationship Specialty Start Date End Date Masha Corcoran MD [address] [place] [id number] [email or web address] PCP - General Pediatrics 01/05/14 Additional Source Comments The information contained in this document represents components of the legal health record. It is not the complete legal health record.[facility]
--- OUTSIDE RECORDS SUMMARY | 2024-11-11 13:58 | XMS_ITS | Clinical Summary ---
Author Organization 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) (1 - Tdap) 2012 Cervical Cancer Screenin 1-65 yrs of age (or Modifier) 2014 Cervical Cancer Screening: P ap every 3 yrs pts age 21-65 2014 Cervical Cancer: Pap Screeni ng with Modifier timing ([facility]) 2014 Cervical Cancer: hrHPV alone or with cotesting Pap for Pts 30-65yrs screening every 5yrs ([facility]) 2014 Flu Vaccination: Yearly for ages 18mos through 64 years (or Modifier)([facility]) 09/24/2024 COVID-19 Vaccine Screening: Initial Series and Booster Status ([facility]) ( - 2023- season) 2024 Zoster/Shingles Vaccine Seri es Screening: Adults aged 18+ yrs (or HM Modifiers)([facility]) (1 of 2) 09/22/2043 Pneumococcal Vaccination Scr eening: Pts 0-19 & 19-49 yrs of age ([facility]) Aged Out No longer eligible based on patient's age to complete this topic Medical Devices Not on file Insurance [place] [address] [place] [id number]
== END 2024-11-11 12:19 | disposition home or self-care (01) ==
LOC: HO.HMCFM 11:38
PROVIDERS: PCP Nurse Practitioner Family; Visit Provider Nurse Practitioner Family
DX: F90.2 Attention-deficit hyperactivity disorder, combined type (principal); F33.0 Major depressive disorder, recurrent, mild; F41.1 Generalized anxiety disorder; F63.3 Trichotillomania; Z23 Encounter for immunization; Z71.85 Encounter for immunization safety counseling

== ENCOUNTER → 2024-11-11 11:38 | Outpatient (BNVA) | payer OTHER, SELFPAY | PROVIDERS: PCP Nurse Practitioner Family; Visit Provider Nurse Practitioner Family | DX: F90.2 Attention-deficit hyperactivity disorder, combined type (principal); F41.1 Generalized anxiety disorder; Y92.9 Unspecified place or not applicable; F33.0 Major depressive disorder, recurrent, mild; F63.3 Trichotillomania; G47.00 Insomnia, unspecified; T43.225A Adverse effect of selective serotonin reuptake inhibitors, initial encounter; Z23 Encounter for immunization; Z71.85 Encounter for immunization safety counseling | CPT/HCPCS: 90471; 90656; 96127 ==

== ENCOUNTER 2024-12-20 07:54 | Outpatient (AMB) | payer OTHER, SELFPAY ==
--- NOTE | 2024-12-20 07:45 | A.OFFPC_ITS ---
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 Instructions: Doctor's Order desvenlafaxine succinate ER (Pristiq) 25 mg PO DAILY dextroamphetamine-amphetamine 10 mg (Adderall) 10 mg PO DIRECTED multivitamin 1 tab PO DAILY Tobacco use date assessed: 11/11/24 Dental Screening Dental Screen Date: 11/11/24 HPI HPI Comments History of Present Illness Details 29-year-old female with ANJELICA, MDD, ADHD, keratosis pilaris, facial acne, trichotilamania , Romi, of dtr 12/08/24 (Nayla) History of Present Illness The patient is a 29-year-old female presenting for follow-up on her mental health and medication management . Situational anxiety and trauma: - The patient's partner gave last Friday, the , via an emergency C- section, which the patient describes as a traumatic experience. - Labor began spontaneously, and her par tner was 4-5 cm dilated upon hospital ar rival. - During labor, the baby's heart rate be ankur to drop and was not recovering appropriately, prompting the emergency . - The was complicated by the b verona's position (facing anteriorly), requiring manual repositioning. - After delivery, the baby was not cryin g and had low blood gas levels, necessitating transfer to the NICU for six hours of observation before stabilizing. - The patient has been experiencing sign ificant stress and sleep deprivation, staying awake for approximately 36-48 hours straight around the delivery. - She feels she has not been able to pro cess the trauma because she has been focused on caring for her recovering partner and the . - She is currently in counseling but had to cancel her last appointment; she plans to reschedule to discuss the experience. Depression/Anxiety: - The patient recently restarted Pristiq (desvenlafaxine) 25 mg daily. - She experienced a mild upset stomach f or the first few days of taking the medication, but this side effect has resolved. - Adherence was inconsistent while in [facility] hospital, but she has been trying to take it more regularly at home. - She reports feeling kind of the same and is not opposed to increasing the dose, noting she was on a higher dose of 50 mg previously. Review of Systems - Psychiatric: Reports significant stres s, feelings of being overwhelmed, and anxiety related to a traumatic experience. - Constitutional: Reports fatigue and sl eep deprivation due to waking every two hours for the . - Gastrointestinal: Reports a resolved u pset stomach that occurred for a few days after starting Pristiq. Physical Exam Limited physical exam was conducted Awake alert NAD Speaking in full sentences Engaging, appropriate Skin pink warm and dry Mood and affect appropriate Assessment and Plan 1. Situational Anxiety/Stress - The patient is experiencing significan t stress and psychological trauma following her partner's recent complicated delivery. - She has been in a caregiving role for both her partner and , which has limited her ability to process the event. - Plan: Advised her to continue with cou nseling and to make an appointment for the upcoming Friday to work through these feelings. - Emphasized the importance of self-care . 2. Depression/Anxiety (Medication Manage ment) - The patient has restarted Pristiq 25 m g daily but reports feeling largely unchanged. - She experienced transient, mild GI ups et which has resolved and was intermittently adherent in the hospital. - She is agreeable to increasing the dos e, having previously been on 50 mg. - Plan: Increase Pristiq to 50 mg daily. - She will start the increased dose in a week or two by taking two of her current 25 mg tablets. - A new prescription for Pristiq 50 mg t ablets will be sent to the pharmacy. 3. Follow-up - Plan to follow up in six weeks via tel ehealth video visit. - The patient can reach out via the [facility] ent portal if any issues arise before then. Patient was given time to ask questions. All questions were answered to their satisfaction. Telehealth Attestation This visit was conducted via a real-time, interactive audio and video platform, and the preceding note is an accurate reflection of the encounter. The patient has been explained that this is an interactive (audio/video) telehealth encounter and what that consists of. The patient understands and wishes to proceed. [employer] platform was used. Total time spent caring for the patient today was 33 minutes. This includes time spent before the visit reviewing the chart, time spent during the visit, and time spent after the visit on documentation, reviewing laboratory results, diagnostic imaging, medications, performing a medically necessary evaluation, counseling on diagnoses, care coordination, ordering appropriate tests, ordering appropriate medications, review of tests performed by other providers, reporting test results with the patient. 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 Toby Winters, Vicky Fuller, Tristian Bernal and colleagues, with an educational luba from [employer]. Physical exam (Primary Care) Tobacco/Smoking Status: Tobacco use Status Tobacco use date assessed 11/11/24 12/20/24 07:45 Patient Tobacco Use Status Never used Tobacco 12/20/24 07:45 e-Cigarette/Vaping Use Never Used 12/20/24 07:45 Thrive Assessment: Date of Thrive Assessment Date Thrive assessed 11/11/24 12/20/24 07:45 Telehealth Telehealth Telehealth Platform: [employer] Location of provider rendering services: practice address Location of patient: address on file Patient Identification confirmed using: Name, : Yes Telehealth method: video Patient verbally consented to treatment: Yes Patient verbally consented to billing insurance company: Yes Patient informed of any privacy concerns related to visit: Yes Minutes spent on Phone/Video with Pt.: 30 Coding Level of Care Code Tele Est Pt Level 4 (42022) Complex EM visit Add On G2211 Diagnoses Attention deficit hyperactivity disorder (ADHD), combined type F90.2 Attention deficit-hyperactivity disorder type: combined inattentive- hyperactive ANJELICA (generalized anxiety disorder) F41.1 Mild episode of recurrent major depressive disorder F33.0 Major depression episode severity: mild Assessment & Plan Assessment & Plan (1) ADHD: Code(s): F90.9 - Attention-deficit hyperactivity disorder, unspecified type Category: Medical Qualifiers: Attention deficit-hyperactivity disorder type: combined inattentive- hyperactive Qualified Code(s): F90.2 - Attention-deficit hyperactivity disorder, combined type (2) ANJELICA (generalized anxiety disorder): Comment: in counseling Code(s): F41.1 - Generalized anxiety disorder Category: Medical (3) MDD (major depressive disorder), recurrent episode: Comment: in counseling Code(s): F33.9 - Major depressive disorder, recurrent, unspecified Category: Medical Qualifiers: Major depression episode severity: mild Qualified Code(s): F33.0 - Major depressive disorder, recurrent, mild Plan . Medications: New desvenlafaxine succinate ER (Pristiq) 50 mg PO DAILY 30 tabs 1RF
--- OUTSIDE RECORDS SUMMARY | 2024-12-20 07:57 | XMS_ITS | Clinical Summary ---
Author Organization [facility] Address [address] [place] [id number] Phone Care Team Providers Care Battery Inspector Name Role Phone Masha Corcoran MD Primary Care Provider [phone] Allergies No known active allergies Active Problems [...] file Medical Devices Not on file Insurance [facility] PPO PPO PPO PPO PPO PPO PPO PPO PPO Care Teams Battery Inspector Relationship Specialty Start Date End Date Masha Corcoran MD [address] [place] [id number] [email or web address] PCP - General Pediatrics 01/05/14 Additional Source Comments The information contained in this document represents components of the legal health record. It is not the complete legal health record.[facility]
--- OUTSIDE RECORDS SUMMARY | 2024-12-20 07:57 | XMS_ITS | Clinical Summary ---
Author Organization [facility] [employer] [facility] lin Address [address] [place] [address] Care Team Providers Care Fish Hatchery Assistant Name Role Phone Unavailable Primary Care Provider [...] Adults 18 yrs or above (or HM Modifier)([facility]) 09/22/2011 Hepatitis C Virus Infection in Adolescents and Adults: Screening (or Modifier) ([facility]) 09/22/2011 SDAR Screening Reminder: Demi ually for all adults ([facility]) 09/22/2011 Tobacco Smoking Cessation: i n Adults excluding Women: Behavioral and Pharmacotherapy Interventions ([facility]) 09/22/2011 DTaP/Tdap/Td Vaccines ([facility]) (1 - Tdap) 2012 Cervical Cancer Screenin 1-65 yrs of age (or Modifier) 2014 Cervical Cancer Screening: P ap every 3 yrs pts age 21-65 2014 Cervical Cancer: Pap Screeni ng with Modifier timing ([facility]) 2014 Cervical Cancer: hrHPV alone or with cotesting Pap for Pts 30-65yrs screening every 5yrs ([facility]) 2014 Flu Vaccination: Yearly for ages 18mos through 64 years (or Modifier)([facility]) 09/24/2024 COVID-19 Vaccine Screening: Initial Series and Booster Status ([facility]) ( - 2023- season) 2024 Zoster/Shingles Vaccine Seri es Screening: Adults aged 18+ yrs (or HM Modifiers)([facility]) (1 of 2) 09/22/2043 Pneumococcal Vaccination Scr eening: Pts 0-19 & 19-49 yrs of age ([facility]) Aged Out No longer eligible based on patient's age to complete this topic Medical Devices Not on [place] [address] [place] [address] PLAN
--- OUTSIDE RECORDS SUMMARY | 2024-12-20 07:57 | XMS_ITS | Data Portability ---
Author Organization [place] - [facility], [facility] Address [address] [place] [address] Assessment Encounter Date Assessment Date Assessment LastModified by Organization Details LastModified Time 07/27/2010 07/27/2010 14 yo female with Cassie Vaginitis - Diflucan liquid (5ml correct dose) today and repeat in 3 days, return next wk if still sxs, prevention; STD screening - urine only, pt cell [phone] only if abnl, CONFIDENTIAL; Dysmenorrhea/Dur ation 8 [...] None recorded. Lab culture, throat 2012 013 [facility], [address] [place] [address], [id number], 3 15:01:58 rapid strep A 2012 013 [facility], [address] [place] [address], [id number], 3 15:01:58 chlamydia/G C amplified DNA PCR 2011 012 [facility] (Centralized Electronic Ordering - All Locations), Patient Can Go To The Location Of Their Choice, [id number] 3 03:17:26 lipid panel - FASTING 2011 012 [facility] (Centralized Electronic Ordering - All Locations), Patient Can Go To The Location Of Their Choice, [id number] 3 03:17:26 hemocue hemoglobin, POC 2010 011 [facility], [address] [place] [address], [id number], 3 03:10:57 chlamydia/G C amplified DNA PCR 2010 011 [facility] (Centralized Electronic Ordering - All Locations), Patient Can Go To The Location Of Their Choice, [id number] 3 03:08:34 Referral gynecologis t referral 2011 012 [facility] Not available 3 03:17:26 physical therapist referral 2011 012 [facility] Not available 3 03:17:26 Procedures None recorded. Surgeries None recorded. Imaging None recorded. Medication Orders Diflucan 40 mg/mL oral suspension 2012 013 [facility]/Pharmacy #[id number], [address] [place], [address], 3 14:44:48 Diflucan 40 mg/mL oral suspension 2010 011 [facility]/Pharmacy #[id number], [address] [facility], [place], [address], 3 03:08:34 Patient TargetsNo targets recorded. Patient Instructions Encounter Date Encounter Id Patient Instructions Last Modified By Organization Details Last Modified Time 01/20/2013 [id number] likely viral dave l r/o strep-will r/o [...] A Rapid Strep negati ve Not Available [facility] [address] [place] [address], [phone], 01/20/2013 14:38:37 01/21/20 13 01/20/2013 cultu re, throa t Result 24 HR positi ve Not Available [facility] [address] [place] [address], [phone], 01/20/2013 14:38:37 01/21/20 13 01/20/2013 cultu re, throa t Result 48 HR positi ve Not Available [facility] [address] [place] [address], [phone], 01/20/2013 14:38:37 12/06/19 11 12/05/2010 hemoc ue hemog lobin , POC Hemoglobin 13.7 Not Available [facility] [address] [place] [address], [phone], 12/05/2010 13:29:06 07/20/19 11 07/19/2010 rapid strep A Rapid Strep negati ve Not Available [facility] [address] [place] [address] [place], [phone], 07/19/2010 15:52:25 07/20/19 11 07/19/2010 cultu re, throa t Result 24 HR negati ve Not Available [facility] [address] [place] [address], [phone], 07/19/2010 15:52:25 07/20/19 11 07/19/2010 cultu re, throa t Result 48 HR negati ve Not Available [facility] [address] [place], [address], 07/19/2010 15:52:25 07/28/19 11 07/30/2010 chlam ydia/ GC DNA probe w/oco nfirm ation urine chlamydia amp probe NEGATI VE no chlam ydia trach omati s RNA detec lucy in this patie nt's sampl e. (refe rence range /norm al value : not detec lucy) Not Available [facility] (Centralized Electronic Ordering - All Locations) Patient Can Go To The Location Of Their Choice, [id number] 07/30/2010 13:43:08 07/28/19 11 07/30/2010 chlam ydia/ [...] Go To The Location Of Their Choice, [id number] 07/30/2010 13:43:08 12/24/1912/24/2011 lipid panel cholesterol, total 202 mg/dL (0-170 ) high Not Available [facility] (Centralized Electronic Ordering - All Locations) Patient Can Go To The Location Of Their Choice, [id number] 12/24/2011 17:17:28 12/24/19 12 12/24/2011 lipid panel triglyceride 106 mg/dL (0-100 ) high Not Available [facility] (Centralized Electronic Ordering - All Locations) Patient Can Go To The Location Of Their Choice, [id number] 12/24/2011 17:17:28 12/24/19 12 12/24/2011 lipid panel HDL chol 72 mg/dL (>40) Not Available [facility] (Centralized Electronic Ordering - All Locations) Patient Can Go To The Location Of Their Choice, [id number] 12/24/2011 17:17:28 12/24/19 12 12/24/2011 lipid panel LDL cholesterol, calculated 109 mg/dL (0-109 ) Not Available [facility] (Centralized Electronic Ordering - All Locations) Patient Can Go To The Location Of Their Choice, [id number] 12/24/2011 17:17:28 12/24/19 12 12/24/2011 lipid panel non HDL cholesterol (calc) 130 mg/dL (0-139 ) Not Available [facility] (Centralized Electronic Ordering - All Locations) Patient Can Go To The Location Of Their Choice, [facility] 12/24/2011 17:17:28 12/24/19 12 12/25/2011 chlam ydia/ GC DNA probe w/oco nfirm ation urine chlamydia amp probe NEGATI VE no chlam ydia trach omati s RNA detec lucy in this patie nt's sampl e. (refe rence range /norm al value : not detec lucy) Not Available [facility] (Centralized Electronic Ordering - All Locations) Patient Can Go To The Location Of Their Choice, [id number] 12/25/2011 13:40:15 12/24/1912/25/2011 chlam ydia/ GC DNA [...] Go To The Location Of Their Choice, [facility] 12/25/2011 13:40:15 08/12/19 15 08/04/2014 imagi ng/di agnos tic resul t No observ ation record ed. Not Available 2014 17:56:53 Result Notes None recorded. Problems Name Problem SNOMED Code Status Onset Date Resolution Date Notes Provider Name and Address Organization Details Recorded Time Acute pharyngiti s 846823854 Active Masha Corcoran MD [address] [place] [address], [place], [place], , [facility] 3 15:01:57 Streptococ bhavana sore throat 97474961 Active Yong Nuñez MD [address] [facility], [place], [address] , [facility] 3 09:46:17 Failure to thrive 23166980 Completed 12/22/2011 Not Available [facility] 3 03:01:18 Acute conjunctiv itis 86587274 Completed 12/22/2011 Not Available [facility] 3 03:01:18 Adjustment disorder 95222683 Active Not Available [facility] 3 03:01:18 Dysfunctio nal uterine bleeding Active Not Available [facility] 3 03:01:18 Acute pharyngiti s 081177639 Completed 12/22/2011 Not Available [facility] 3 03:01:18 Backache 682864010 Active Not Available [facility] 3 03:01:18 Dysmenorrh ea 421309690 Active Not Available [facility] 3 03:01:18 Vaginitis and vulvovagin itis Active Not Available [facility] 3 03:01:18 Vaginitis and vulvovagin itis Completed 12/22/2011 Not Available [facility] 3 03:01:18 Backache 547442721 Completed 200706/10/2009 Not Available [facility] 3 03:01:18 Viral disease 72044650 Completed 200806/10/2009 Not Available [facility] 3 03:01:18 Acute conjunctiv itis 95078784 Completed 200806/10/2009 Not Available [facility] 3 03:01:18 Acute pharyngiti s 495909086 Completed 200806/10/2009 Not Available [facility] 3 03:01:18 Abnormal weight loss 154011509 Completed 200812/22/2011 Not Available [facility] 3 03:01:18 Notes: Problem Notes None recorded. [...] Address Organization Details Last Updated DateTime 07/27/[phone] g Lenora Mar [facility] 07/27/2010 10:42:51 Date Recorded Body height Body weight Body mass index (BMI) Systolic And Diastolic Provider Name and Address Organization Details Last Updated DateTime 12/05/2010 163.195 cm 50052.509 694 g 18.1 kg/m2 114/58 mm[Hg] Alison Kelly [facility] 12/05/2010 12:49:01 Date Recorded Body height Body weight Body mass index (BMI) Systolic And Diastolic Provider Name and Address Organization Details Last Updated DateTime 12/24/2011 163.195 cm 43877.723 752 g 18.7 kg/m2 112/64 mm[Hg] Alison Kelly [facility] 12/24/2011 11:00:31 Date Recorded Body height Body weight Body mass index (BMI) Body temperature Systolic And Diastolic Provider Name and Address Organization Details Last Updated DateTime 01/20/2013 164.465 cm 53847.13 1382 g 18.2 kg/m2 99.4 [degF] 98/68 mm[Hg] Mary Mckinnon [facility] 3 14:47:24 Social History Question Answer Notes LastModified by Organizat ion Details LastModified Time Tobacco Smoking Status Never Smoker Alison yu [place] [facility] 12/24/2011 11:00:31 Parent's Marital Status --but Live Together- difficult At Home 05 Information not available 12/29/2010 Home Situation Both Parents radhames [place] not available 12/24/2011 Siblings Names And Birthdates Loreta (F) 06/06/01 05 Information not available 12/29/2010 Parent's Name Fidelina [...] ously record ed as Cancer ) [email or web address] [id number] Not available 08/03/2012 03:00:17 Paternal Grandfather Heart disease [email or web address] [id number] Not available 08/03/2012 03:00:17 Paternal Grandfather Hypercholest erolemia previo usly record ed as Elevat ed Choles terol [email or web address] [id number] Not available 08/03/2012 03:00:17 Medical History Condition Response ENDOCRINE PROBLEMS/DIABETES Y OTHER Y PSYCH PROBLEMS Y Gynecological History Statement/Question Response Age at onset of periods 09/01 Obstetrics History GPAL:G 0 P 0 0 0 0 Immunizations Vaccine Type Date Status Note Provider Nam e and Address Organization Details Recorded Time varicella 7 completed Not Available [facility] 12/29/2010 03:18:24 meningococcal MCV4P 2 completed Not Available [facility] 03/13/2019 02:33:31 Hib, unspecified formulation 4 completed [facility] 12/29/2010 03:19:09 OPV, trivalent 5 completed [facility] 12/29/2010 03:19:09 DTP 5 completed Not Available [facility] 12/29/2010 03:19:09 Hep B, adolescent or pediatric 5 completed Not Available [facility] 12/29/2010 03:19:09 DTP 4 completed Not Available [facility] 12/29/2010 03:19:09 DTP 4 completed Not Available [facility] 12/29/2010 03:19:09 Hep B, adolescent or pediatric 4 completed Not Available [facility] 12/29/2010 03:19:09 Hib, unspecified formulation 5 completed Not Available [facility] 12/29/2010 03:19:09 OPV, trivalent 4 completed Not Available [facility] 12/29/2010 03:19:09 DTP 6 completed Not Available [facility] 12/29/2010 03:19:09 MMR 5 completed Not Available [facility] 12/29/2010 03:19:09 Hib, unspecified formulation 4 completed Not Available [facility] 12/29/2010 03:19:09 Hib, unspecified formulation 5 completed Not Available [facility] 12/29/2010 03:19:09 Hep B, adolescent or pediatric 4 completed Not Available [facility] 12/29/2010 03:19:09 IPV 8 completed Not Available [facility] 12/29/2010 03:19:09 DTaP 8 completed Not Available [facility] 12/29/2010 03:19:09 MMR 8 completed Not Available [facility] 12/29/2010 03:19:09 OPV, trivalent 4 completed Not Available [facility] 12/29/2010 03:19:09 meningococcal ACWY, unspecified formulation 8 completed Not Available [facility] 12/29/2010 03:18:24 varicella 8 completed Not Available [facility] 12/29/2010 03:16:44 Tdap 7 completed Not Available [facility] 12/29/2010 03:16:44 Past Encounters Encounter ID Performer Location Encounter Start Date Encounter Closed Date Diagnosis/Indication Diagnosis SNOMED-CT Code Diagnosis ICD10 Code Diagnosis IMO Codes Diagnosis Note [id number] Sirisha Esteban MD [facility] [place] [address] [place] [address] 10/23/2006 14:53:53 10/23/2006 15:47:27 [id number] Jean Claude Santillan MD [facility] [place] [address] [place] [phone] 04/09/2007 13:59:43 04/09/2007 14:16:27 [id number] Masha Corcoran MD [facility] [place] [address] [place] [phone] 12/29/2007 11:02:01 11/03/2008 01:23:50 [id number] Sirisha Esteban MD [facility] [place] [address] [place] [phone] 07/15/2008 10:58:05 07/15/2008 11:18:50 [id number] Masha Corcoran MD [facility] [place] [address] [place] [phone] 08/24/2008 15:24:10 08/24/2008 16:30:01 [id number] Masha Corcoran MD [facility] [place] [address] [place] [phone] 05/04/2009 13:23:27 05/04/2009 14:55:14 [id number] Masha Corcoran MD [facility] [place] [address] [place] [phone] 06/13/2009 15:17:36 06/13/2009 16:18:40 [id number] Masha Corcoran MD [facility] [address] [place] [id number] 07/25/2009 10:43:02 07/25/2009 11:55:49 [id number] Masha Corcoran MD [facility] [place] [address] [place] [phone] 09/12/2009 16:35:16 09/12/2009 18:05:53 [id number] Masha Corcoran MD [facility] [place] [address] [place] [phone] 12/05/2009 13:10:13 12/05/2009 15:13:24 [id number] Stephanie Sharp MD [facility] [place] [address] [place] [address] 07/19/2010 15:21:05 07/19/2010 16:11:53 [id number] Josefina Parkinson MD [facility] [place] [address] [place] [address] 07/27/2010 10:11:05 07/27/2010 11:18:16 [id number] Masha Corcoran MD [facility] [place] [address] [place] [address] 12/05/2010 12:37:09 12/05/2010 17:00:26 [id number] Masha Corcoran MD [facility] [place] [address] [place] [address] 12/24/2011 10:22:14 12/24/2011 12:13:28 [id number] Josefina Parkinson MD [facility] [place] [address] [facility] [place] [address] 03/09/2012 16:43:58 03/09/2012 17:28:38 [id number] Masha Corcoran MD [facility] [place] [address] [place] [address] 01/20/2013 14:27:08 01/20/2013 15:37:10 Acute pharyngitis [id number] Health Concerns Section Related Observation LastModified by Organization Detai ls LastModified Time None Recorded Concern Status LastModified by Organization Details LastModified Time None Recorded Advance Directives Directive None Recorded Payers Insurance Date Sequence Insurance Name Policy Number Policy Ballard Covered Member ID Ballard Member ID Guarantor Name 10/09/2013 1 [facility]) Yusuf Brooks [id number] Falguni Brooks 10/09/2013 1 [facility] [employer] Yusuf Brooks [id number] Falguni Brooks 10/09/2013 1 [facility] [id number] Fidelina Brooks [id number] Falguni Brooks Notes Date Note Type Note Provider Name and Address Organization Details Recorded Time 07/27/2010 text/html RS Sick Visit Narrative HistoryReported by PatientHas had vaginal itching x 3 days, not sleeping at night d/t itch. SA x 1 in past month, reports first time for her and her partner, + condom use. Thinks it may be d/t new panty liners - accidentally got scented liners. D/c'd use yesterday. Pt denies abnormal odor/discharge - states area looks a little red/irritated. Itches more at night - slight during day. No change in vag discharge. Menses regular, bleeds for 8 days, uses 4 pads/day, moderate cramps - cannot swallow pills so doesn't take anything (if does takes asa). Mom not aware of SA. Josefina Parkinson MD [address] [place] [address], , [facility] 07/27/2010 17:12:03 03/09/2012 text/html RS Sick Visit Narrative HistoryReported by PatientC/O vaginal itching x 2-3 days. Had yeast infection appx 2 yrs ago. Has normal amnt of discharge. No fever. LMP 02/22/12. Last SI was appx 2 wks ago and always uses condoms. Same partner. Josefina Parkinson MD [address] [place], [place], , [facility] 03/09/2012 17:42:36 01/20/2013 text/html RS Sick Visit Narrative HistoryReported by PatientBody chills/aches since last night. St since last night. YBARRA since this morning. Stuffy nose past 3 days. Lower abdominal pain. no v/d. Bilateral ear pain since yesterday, worse this morning. no meds. LMP approx 1 month ago. No meds taken Yong Nuñez MD [address] [place], [place], , [facility] 01/21/2013 09:33:46 OBGyn Episode No OBEpisode recorded.
== END 2024-12-20 15:58 | disposition home or self-care (01) ==
LOC: HO.HMCFM 07:54
PROVIDERS: PCP Nurse Practitioner Family; Visit Provider Nurse Practitioner Family
DX: F90.2 Attention-deficit hyperactivity disorder, combined type (principal); F41.1 Generalized anxiety disorder; F33.0 Major depressive disorder, recurrent, mild

== ENCOUNTER 2025-01-31 15:13 | Outpatient (AMB) | payer OTHER, SELFPAY ==
--- NOTE | 2025-01-31 14:42 | A.OFFPC_ITS ---
Intake Visit Reasons: telehealth visit in 6 weeks to fu on ANJELICA Intake Note: Telehealth follow up Digital Account Manager Required: No Allergies escitalopram (From Lexapro) Allergy (Severe, Verified 01/31/25 16:30) Rash lexapro Allergy (Intermediate, Uncoded 01/31/25 15:13) Rash Medication List - Last Reviewed 01/31/25 by Toro Pandey MA acetylcysteine (bulk) ea miscellaneous buspirone 10 mg PO TID Held on 11/11/24. Instructions: Doctor's Order desvenlafaxine succinate ER (Pristiq) 50 mg PO DAILY dextroamphetamine-amphetamine 10 mg (Adderall) 10 mg PO DIRECTED multivitamin 1 tab PO DAILY Tobacco use date assessed: 01/31/25 Dental Screening Dental Screen Date: 01/31/25 Did you have a dental visit in the last 12 months?: Yes Did you have a dental problem in the last 6 months where you did not have access to dental care?: No Was dental information given to patient?: Patient has dentist HPI HPI Comments History of Present Illness Details 29-year-old female with ANJELICA, MDD, ADHD, keratosis pilaris, facial acne, trichotilamania , Romi, of dtr 12/08/24 (Nayla) History of Present Illness The patient is a 29 year old female presenting for a follow-up on anxiety and depression, via televideo Anxiety and Depression: - The patient's Pristique was increased from 25 mg to 50 mg daily at the last visit. - She reports medication non-adherence, having been hesitant to take it, but just started the increased dose a few days ago, in the middle of last week. - She finds it easier to remember her me dication now that she has returned to work and has a more structured schedule. - The patient still has some of the 25 m g doses of Pristique remaining. - Due to recently starting the higher do se, it is too soon to assess for positive effects. - She continues with counseling, which h as been helpful, but has not attended a session since her baby was born. - She has a few remaining counseling tremaine ointments covered by her employer benefit and intends to use them, though scheduling is difficult. Attention-Deficit/Hyperactivity Disorder (ADHD): - The patient is taking immediate-releas e Adderall for ADHD. - She has been considering switching to an extended-release formulation. - She sometimes forgets to take her medi cation until 2 or 3 PM. - She reports near the end of her curren t Adderall prescription & needs refill Review of Systems - Psychiatric: Reports symptoms of anxie ty and depression. Physical Exam - General: No formal physical exam was c onducted. The patient appeared well on video. Assessment and Plan 1. Anxiety and Depression - The patient has just recently started the increased dose of Pristique 50 mg after a period of non-adherence. - It is too soon to determine the effica cy of the new dose. - The plan is to continue the current do se of Pristique 50 mg daily. - No changes to her medication will be m kendrick until she has been on a stable dose for an adequate period to gauge its effectiveness on her anxiety and depressive symptoms. 2. Attention-Deficit/Hyperactivity Disor luzmaria (ADHD) - The patient inquired about switching f rom immediate-release to extended- release Adderall. - It was decided to postpone any changes to her ADHD medication until her anxiety and depression are better controlled with a stable dose of Pristique. - The current Adderall dose is considere d effective. - A refill for her immediate-release Add erall will be sent to the pharmacy. 3. Follow-up - A virtual follow-up appointment is miesha eduled in 6-8 weeks, specifically on March 09 at 4:00 PM, to assess the effectiveness of the Pristique 50 mg dose. Patient was given time to ask questions. All questions were answered to their satisfaction. Telehealth Attestation This visit was conducted via a synchronous audio-visual platform. The patient has been explained that this is an interactive (audio/video) telehealth encounter and what that consists of. The patient understands and wishes to proceed. Bomgar platform was used. Total time spent caring for the patient today was 22 minutes. This includes time spent before the visit reviewing the chart, time spent during the visit, and time spent after the visit on documentation, reviewing laboratory results, diagnostic imaging, medications, performing a medically necessary evaluation, counseling on diagnoses, care coordination, ordering appropriate tests, ordering appropriate medications, review of tests performed by other providers, reporting test results with the patient, communication with other healthcare providers. 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 Toby Winters, Vicky Fuller, Tristian Bernal and colleagues, with an educational luba from [employer]. Physical exam (Primary Care) Tobacco/Smoking Status: Tobacco use Status Tobacco use date assessed 01/31/25 01/31/25 15:14 Patient Tobacco Use Status Never used Tobacco 01/31/25 14:42 e-Cigarette/Vaping Use Never Used 01/31/25 14:42 Thrive Assessment: Date of Thrive Assessment Date Thrive assessed 03/12/24 01/31/25 15:13 Telehealth Telehealth Telehealth Platform: [facility] Location of provider rendering services: practice address Location of patient: address on file Patient Identification confirmed using: Name, : Yes Telehealth method: video Patient verbally consented to treatment: Yes Patient verbally consented to billing insurance company: Yes Patient informed of any privacy concerns related to visit: Yes Minutes spent on Phone/Video with Pt.: 15 Coding Level of Care Code Tele Est Pt Level 3 (88362) Complex visit Add On G2211 Diagnoses ANJELICA (generalized anxiety disorder) F41.1 Mild episode of recurrent major depressive disorder F33.0 Major depression episode severity: mild Attention deficit hyperactivity disorder (ADHD), combined type F90.2 Attention deficit-hyperactivity disorder type: combined inattentive- hyperactive Assessment & Plan Assessment & Plan (1) ANJELICA (generalized anxiety disorder): Comment: in counseling Code(s): F41.1 - Generalized anxiety disorder Category: Medical (2) MDD (major depressive disorder), recurrent episode: Comment: in counseling Code(s): F33.9 - Major depressive disorder, recurrent, unspecified Category: Medical Qualifiers: Major depression episode severity: mild Qualified Code(s): F33.0 - Major depressive disorder, recurrent, mild (3) ADHD: Code(s): F90.9 - Attention-deficit hyperactivity disorder, unspecified type Category: Medical Qualifiers: Attention deficit-hyperactivity disorder type: combined inattentive- hyperactive Qualified Code(s): F90.2 - Attention-deficit hyperactivity disorder, combined type Plan . Medications: Refilled dextroamphetamine-amphetamine 10 mg (Adderall) Take 2 tabs in the morning (20mg) take additional 10 mg in the afternoon as needed for breakthrough sx; Max 30mg/day. 10 mg PO DIRECTED 90 tabs 0RF
--- OUTSIDE RECORDS SUMMARY | 2025-02-01 00:47 | XMS_ITS | Data Portability ---
Author Organization MD - [facility], [facility] Address [address] [place] [address] Assessment Encounter Date Assessment Date Assessment LastModified by Organization Details LastModified Time 07/27/2010 07/27/2010 14 yo female with Cassie Vaginitis - Diflucan liquid (5ml correct dose) today and repeat in 3 days, return next wk if still sxs, prevention; STD screening - urine only, pt cell [phone] only if abnl, CONFIDENTIAL; Dysmenorrhea/Dur ation 8 [...] None recorded. Lab culture, throat 2012 013 [facility], [address] [place] [address], [phone], 3 15:01:58 rapid strep A 2012 013 [facility], [address] [place] [address], [phone], 3 15:01:58 chlamydia/G C amplified DNA PCR 2011 012 [facility] (Centralized Electronic Ordering - All Locations), Patient Can Go To The Location Of Their Choice, [id number] 3 03:17:26 lipid panel - FASTING 2011 012 [facility] (Centralized Electronic Ordering - All Locations), Patient Can Go To The Location Of Their Choice, [id number] 3 03:17:26 hemocue hemoglobin, POC 2010 011 [facility], [address] [place] [address], [address], 3 03:10:57 chlamydia/G C amplified DNA PCR 2010 011 [facility]ANN[facility] (Centralized Electronic Ordering - All Locations), Patient Can Go To The Location Of Their Choice, [id number] 3 03:08:34 Referral gynecologis t referral 2011 012 BRITANY Not available 3 03:17:26 physical therapist referral 2011 012 BRITANY Not available 3 03:17:26 Procedures None recorded. Surgeries None recorded. Imaging None recorded. Medication Orders Diflucan 40 mg/mL oral suspension 2012 013 [facility]/Pharmacy #[id number], [address] [place], [address], 3 14:44:48 Diflucan 40 mg/mL oral suspension 2010 011 [facility]/Pharmacy #[id number], [address] [facility], [place], [address], 3 03:08:34 Patient TargetsNo targets recorded. Patient Instructions Encounter Date Encounter Id Patient Instructions Last Modified By Organization Details Last Modified Time 01/20/2013 [id number] likely viral dave l r/o strep-will r/o [...] A Rapid Strep negati ve Not Available [facility] [address] [place] [address], [phone], 01/20/2013 14:38:37 01/21/20 13 01/20/2013 cultu re, throa t Result 24 HR positi ve Not Available [facility] [address] [place] [address], [address], 01/20/2013 14:38:37 01/21/20 13 01/20/2013 cultu re, throa t Result 48 HR positi ve Not Available [facility] [address] [place] [address], [phone], 01/20/2013 14:38:37 12/06/19 11 12/05/2010 hemoc ue hemog lobin , POC Hemoglobin 13.7 Not Available [facility] [address] [place] [address], [phone], 12/05/2010 13:29:06 07/20/19 11 07/19/2010 rapid strep A Rapid Strep negati ve Not Available [facility] [address] [place] [address] [place], [phone], 07/19/2010 15:52:25 07/20/19 11 07/19/2010 cultu re, throa t Result 24 HR negati ve Not Available [facility] [address] [place] [address], [phone], 07/19/2010 15:52:25 07/20/19 11 07/19/2010 cultu re, throa t Result 48 HR negati ve Not Available [facility] [address] [place], [phone], 07/19/2010 15:52:25 07/28/19 11 07/30/2010 chlam ydia/ GC DNA probe w/oco nfirm ation urine chlamydia amp probe NEGATI VE no chlam ydia trach omati s RNA detec lucy in this patie nt's sampl e. (refe rence range /norm al value : not detec lucy) Not Available [facility] (Centralized Electronic Ordering - All Locations) Patient Can Go To The Location Of Their Choice, [id number] 07/30/2010 13:43:08 07/28/19 11 07/30/2010 chlam ydia/ [...] Go To The Location Of Their Choice, [id number] 07/30/2010 13:43:08 12/24/1912/24/2011 lipid panel cholesterol, total 202 mg/dL (0-170 ) high Not Available [facility] (Centralized Electronic Ordering - All Locations) Patient Can Go To The Location Of Their Choice, [id number] 12/24/2011 17:17:28 12/24/19 12 12/24/2011 lipid panel triglyceride 106 mg/dL (0-100 ) high Not Available [facility] (Centralized Electronic Ordering - All Locations) Patient Can Go To The Location Of Their Choice, [id number] 12/24/2011 17:17:28 12/24/19 12 12/24/2011 lipid panel HDL chol 72 mg/dL (>40) Not Available [facility] (Centralized Electronic Ordering - All Locations) Patient Can Go To The Location Of Their Choice, [id number] 12/24/2011 17:17:28 12/24/19 12 12/24/2011 lipid panel LDL cholesterol, calculated 109 mg/dL (0-109 ) Not Available [facility] (Centralized Electronic Ordering - All Locations) Patient Can Go To The Location Of Their Choice, [id number] 12/24/2011 17:17:28 12/24/19 12 12/24/2011 lipid panel non HDL cholesterol (calc) 130 mg/dL (0-139 ) Not Available [facility] (Centralized Electronic Ordering - All Locations) Patient Can Go To The Location Of Their Choice, [facility] 12/24/2011 17:17:28 12/24/19 12 12/25/2011 chlam ydia/ GC DNA probe w/oco nfirm ation urine chlamydia amp probe NEGATI VE no chlam ydia trach omati s RNA detec lucy in this patie nt's sampl e. (refe rence range /norm al value : not detec lucy) Not Available [facility] (Centralized Electronic Ordering - All Locations) Patient Can Go To The Location Of Their Choice, [id number] 12/25/2011 13:40:15 12/24/1912/25/2011 chlam ydia/ GC DNA [...] Go To The Location Of Their Choice, [facility] 12/25/2011 13:40:15 08/12/19 15 08/04/2014 imagi ng/di agnos tic resul t No observ ation record ed. Not Available 2014 17:56:53 Result Notes None recorded. Problems Name Problem SNOMED Code Status Onset Date Resolution Date Notes Provider Name and Address Organization Details Recorded Time Acute pharyngiti s 018054504 Active Masha Corcoran MD [address] [place] [address], [place], [place], , [facility] 3 15:01:57 Streptococ bhavana sore throat 41109565 Active Yong Nuñez MD [address] [facility], [place], [address] , [facility] 3 09:46:17 Failure to thrive 84109265 Completed 12/22/2011 Not Available [facility] 3 03:01:18 Acute conjunctiv itis 58463245 Completed 12/22/2011 Not Available [facility] 3 03:01:18 Adjustment disorder 43376282 Active Not Available [facility] 3 03:01:18 Dysfunctio nal uterine bleeding Active Not Available [facility] 3 03:01:18 Acute pharyngiti s 030623677 Completed 12/22/2011 Not Available [facility] 3 03:01:18 Backache 413643421 Active Not Available [facility] 3 03:01:18 Dysmenorrh ea 345046224 Active Not Available [facility] 3 03:01:18 Vaginitis and vulvovagin itis Active Not Available [facility] 3 03:01:18 Vaginitis and vulvovagin itis Completed 12/22/2011 Not Available [facility] 3 03:01:18 Backache 146927470 Completed 200706/10/2009 Not Available [facility] 3 03:01:18 Viral disease 11498034 Completed 200806/10/2009 Not Available [facility] 3 03:01:18 Acute conjunctiv itis 77591473 Completed 200806/10/2009 Not Available [facility] 3 03:01:18 Acute pharyngiti s 649003847 Completed 200806/10/2009 Not Available [facility] 3 03:01:18 Abnormal weight loss 551703672 Completed 200812/22/2011 Not Available [facility] 3 03:01:18 Notes: Problem Notes None recorded. [...] Address Organization Details Last Updated DateTime 07/27/2010 [phone] g Lenora Mar [facility] 07/27/2010 10:42:51 Date Recorded Body height Body weight Body mass index (BMI) Systolic And Diastolic Provider Name and Address Organization Details Last Updated DateTime 12/05/2010 163.195 cm 56394.509 694 g 18.1 kg/m2 114/58 mm[Hg] Alison Kelly [facility] 12/05/2010 12:49:01 Date Recorded Body height Body weight Body mass index (BMI) Systolic And Diastolic Provider Name and Address Organization Details Last Updated DateTime 12/24/2011 163.195 cm 71532.723 752 g 18.7 kg/m2 112/64 mm[Hg] Alison Kelly [facility] 12/24/2011 11:00:31 Date Recorded Body height Body weight Body mass index (BMI) Body temperature Systolic And Diastolic Provider Name and Address Organization Details Last Updated DateTime 01/20/2013 164.465 cm 02061.13 1382 g 18.2 kg/m2 99.4 [degF] 98/68 mm[Hg] Mary Mckinnon [facility] 3 14:47:24 Social History Question Answer Notes LastModified by Organizat ion Details LastModified Time Tobacco Smoking Status Never Smoker Alison yu [place] [facility] 12/24/2011 11:00:31 Parent's Marital Status [...] ously record ed as Cancer ) [id number] Not available 08/03/2012 03:00:17 Paternal Grandfather Heart disease [id number] [id number] Not available 08/03/2012 03:00:17 Paternal Grandfather Hypercholest erolemia previo usly record ed as Elevat ed Choles terol [email or web address] [id number] Not available 08/03/2012 03:00:17 Medical History Condition Response ENDOCRINE PROBLEMS/DIABETES Y PSYCH PROBLEMS Y OTHER Y Gynecological History Statement/Question Response Age at onset of periods 09/01 Obstetrics History GPAL:G 0 P 0 0 0 0 Immunizations Vaccine Type Date Status Note Provider Nam e and Address Organization Details Recorded Time varicella 7 completed Not Available [facility] 12/29/2010 03:18:24 meningococcal MCV4P 2 completed Not Available [facility] 03/13/2019 02:33:31 Hib, unspecified formulation 4 completed Not Available [facility] 12/29/2010 03:19:09 OPV, trivalent 5 completed Not Available [facility] 12/29/2010 03:19:09 DTP 5 completed Not Available [facility] 12/29/2010 03:19:09 Hep B, adolescent or pediatric 5 completed Not Available [facility] 12/29/2010 03:19:09 DTP 4 completed Not Available [facility] 12/29/2010 03:19:09 DTP 4 completed Not Available [facility] 12/29/2010 03:19:09 Hep B, adolescent or pediatric 4 completed Not Available [facility] 12/29/2010 03:19:09 Hib, unspecified formulation 5 completed Not Available [facility] 12/29/2010 03:19:09 OPV, trivalent 4 completed Not Available [facility] 12/29/2010 03:19:09 DTP 6 completed Not Available [facility] 12/29/2010 03:19:09 MMR 5 completed Not Available [facility] 12/29/2010 03:19:09 Hib, unspecified formulation 4 completed Not Available [facility] 12/29/2010 03:19:09 Hib, unspecified formulation 5 completed Not Available [facility] 12/29/2010 03:19:09 Hep B, adolescent or pediatric 4 completed Not Available [facility] 12/29/2010 03:19:09 IPV 8 completed Not Available [facility] 12/29/2010 03:19:09 DTaP 8 completed Not Available [facility] 12/29/2010 03:19:09 MMR 8 completed Not Available [facility] 12/29/2010 03:19:09 OPV, trivalent 4 completed Not Available [facility] 12/29/2010 03:19:09 meningococcal ACWY, unspecified formulation 8 completed Not Available [facility] 12/29/2010 03:18:24 varicella 8 completed Not Available [facility] 12/29/2010 03:16:44 Tdap 7 completed Not Available [facility] 12/29/2010 03:16:44 Past Encounters Encounter ID Performer Location Encounter Start Date Encounter Closed Date Diagnosis/Indication Diagnosis SNOMED-CT Code Diagnosis ICD10 Code Diagnosis IMO Codes Diagnosis Note [id number] Sirisha Esteban MD [facility] [address] [place] [address] 10/23/2006 14:53:53 10/23/2006 15:47:27 [id number] Jean Claude Santillan MD [facility] [address] [place] [phone] 04/09/2007 13:59:43 04/09/2007 14:16:27 [id number] Masha Corcoran MD [facility] [place] [address] [place] [phone] 12/29/2007 11:02:01 11/03/2008 01:23:50 [id number] Sirisha Esteban MD [facility] [address] [place] [phone] 07/15/2008 10:58:05 07/15/2008 11:18:50 [id number] Masha Corcoran MD [facility] [place] [address] [place] [phone] 08/24/2008 15:24:10 08/24/2008 16:30:01 [id number] Masha Corcoran MD [facility] [place] [address] [place] [phone] 05/04/2009 13:23:27 05/04/2009 14:55:14 [id number] Masha Corcoran MD [facility] [place] [address] [place] [phone] 06/13/2009 15:17:36 06/13/2009 16:18:40 [id number] Masha Corcoran MD [facility] [address] [place] [phone] 07/25/2009 10:43:02 07/25/2009 11:55:49 [id number] Masha Corcoran MD [facility] [address] [place] [phone] 09/12/2009 16:35:16 09/12/2009 18:05:53 [id number] Masha Corcoran MD [facility] [address] [place] [phone] 12/05/2009 13:10:13 12/05/2009 15:13:24 [id number] Stephanie Sharp MD [facility] [address] [place] [address] 07/19/2010 15:21:05 07/19/2010 16:11:53 [id number] Josefina Parkinson MD [facility] [place] [address] 07/27/2010 10:11:05 07/27/2010 11:18:16 [id number] Masha Corcoran MD [facility] [place] [address] [place] [address] 12/05/2010 12:37:09 12/05/2010 17:00:26 [id number] Masha Corcoran MD [facility] [place] [place] [address] 12/24/2011 10:22:14 12/24/2011 12:13:28 [id number] Josefina Parkinson MD [facility] [address] [facility] [place] [address] 03/09/2012 16:43:58 03/09/2012 17:28:38 [id number] Masha Corcoran MD [facility] [place] [address] 01/20/2013 14:27:08 01/20/2013 15:37:10 Acute pharyngitis [id number] Health Concerns Section Related Observation LastModified by Organization Detai ls LastModified Time None Recorded Concern Status LastModified by Organization Details LastModified Time None Recorded Advance Directives Directive None Recorded Payers Insurance Date Sequence Insurance Name Policy Number Policy Ballard Covered Member ID Ballard Member ID Guarantor Name 10/09/2013 1 [facility]) Yusuf Brooks [id number] Falguni Brooks 10/09/2013 1 [facility]: [employer] Yusuf Brooks [id number] Falguni Brooks 10/09/2013 1 [facility] [id number] Fidelina Brooks [id number] Falguni Brooks Notes Date Note Type Note [...] not aware of SA. Josefina Parkinson MD [address] [place] [address], , [facility] 07/27/2010 17:12:03 03/09/2012 text/html RS Sick Visit Narrative HistoryReported by PatientC/O vaginal itching x 2-3 days. Had yeast infection appx 2 yrs ago. Has normal amnt of discharge. No fever. LMP 02/22/12. Last SI was appx 2 wks ago and always uses condoms. Same partner. Josefina Parkinson MD [address] [place], [place], , [facility] 03/09/2012 17:42:36 01/20/2013 text/html RS Sick Visit Narrative HistoryReported by PatientBody chills/aches since last night. St since last night. YBARRA since this morning. Stuffy nose past 3 days. Lower abdominal pain. no v/d. Bilateral ear pain since yesterday, worse this morning. no meds. LMP approx 1 month ago. No meds taken Yong Nuñez MD [address] [place], [place], , [facility] 01/21/2013 09:33:46 OBGyn Episode No OBEpisode recorded.
--- OUTSIDE RECORDS SUMMARY | 2025-02-01 00:47 | XMS_ITS | Clinical Summary ---
Author Organization [facility] Address [address] [place] [id number] Phone Care Team Providers Care Piano Case Maker Name Role Phone Masha Corcoran MD Primary Care Provider [phone] Allergies No known active allergies Active Problems [...] file Medical Devices Not on file Insurance [facility] PPO PPO PPO PPO PPO PPO PPO PPO PPO Care Teams Piano Case Maker Relationship Specialty Start Date End Date Masha Corcoran MD [address] [place] [phone] [email or web address] PCP - General Pediatrics 01/05/14 Additional Source Comments The information contained in this document represents components of the legal health record. It is not the complete legal health record.[facility]
== END 2025-01-31 16:43 | disposition home or self-care (01) ==
LOC: HO.HMCFM 15:13
PROVIDERS: PCP Nurse Practitioner Family; Visit Provider Nurse Practitioner Family
DX: F90.2 Attention-deficit hyperactivity disorder, combined type (principal); F41.1 Generalized anxiety disorder; F33.0 Major depressive disorder, recurrent, mild